=== PATIENT | male | born 1940 | race Caucasian/White ===

== ENCOUNTER 2018-07-29 04:47 | Emergency (ER) | payer MEDICARE, OTHER ==
[~2018-07-29] VITALS: Ht 175.3 cm; Wt 77.1 kg
[2018-07-29] MEDS ORDERED: cloNIDine HCL 0.1 MG TAB PO ONE (05:15)
[2018-07-29 06:39] LABS: Basophils # (auto) 0 uL; Basophils % (auto) 0.5 % (0.0-2.0); Eosinophils # (auto) 0.3 uL; Eosinophils % (auto) 3.8 % (0.0-7.0); Hematocrit 38.9 % (41.0-53.0); Lymphocytes # (auto) 1.2 uL; Lymphocytes % (auto) 16.4 % (10.0-50.0); Mean Corpuscular Hemoglobin 31.7 pg (28.0-32.0); Mean Corpuscular Hgb Conc. 33.5 g/dL (32.0-36.0); Mean Corpuscular Volume 94.7 fL (80.0-100.0); Monocytes # (auto) 0.9 uL; Monocytes % (auto) 12.6 % (0.0-12.0); Neutrophils # (auto) 4.9 uL; Neutrophils % (auto) 66.7 % (37.0-80.0); Nucleated Red Blood Cells % 0.1 %; Platelet Count (auto) 227 10^3/uL (140-450); Red Blood Cells 4.11 10^6/uL (4.5-5.90); Red Cell Distribution Width 14.7 % (11.8-14.3); White Blood Cell 7.3 10^3/uL (4.4-10.8)
[2018-07-29] MEDS ORDERED: SODIUM CHLORIDE 0.9% 1,000 ML IV ONE (06:51)
[2018-07-29 06:53] LABS: Albumin 3.4 g/dL (3.4-5.0); Calcium 7.9 mg/dL (8.5-10.1); Magnesium 2.3 mg/dL (1.6-2.6); Potassium 4.2 mmol/L (3.5-5.1)
[2018-07-29 06:57] LABS: Bilirubin, Total 0.5 mg/dL (0.2-1.0); Total Protein 7.5 g/dL (6.4-8.2)
[2018-07-29 09:00] VITALS: BP 111/73
== END 2018-07-29 09:31 | disposition home or self-care (01) ==
LOC: ER 04:52
DX: S00.03XA Contusion of scalp, initial encounter (principal); I12.9 Hypertensive chronic kidney disease with stage 1 through stage 4 chronic kidney disease, or unspecified chronic kidney disease; N18.9 Chronic kidney disease, unspecified; E46 Unspecified protein-calorie malnutrition; Z86.73 Personal history of transient ischemic attack (TIA), and cerebral infarction without residual deficits; W19.XXXA Unspecified fall, initial encounter; Y93.89 Activity, other specified; Y99.8 Other external cause status; Y92.89 Other specified places as the place of occurrence of the external cause
CPT/HCPCS: 36415; 70450; 80053; 83735; 84443; 84484; 85025; 93005; 94761

== ENCOUNTER 2019-04-14 08:16 | Inpatient (IN) | payer MEDICARE, OTHER ==
[~2019-04-14] VITALS: Ht 170.2 cm; Wt 71.5 kg
[~2019-04-14 08:16] MED LIST: ACET-3 PO; APIX2.5T PO; BISM1CHW5 PO; CLON0.2T PO; DIA5T PO; DOCU-94 PO; DOXY100C2 PO; FERR-20 PO; FURO20TA3 PO; METO25TA62 PO; METR500T14 PO; NIFE60TA59 PO; NITR1SPR TL; PANT40TA2 PO; RIZA5TAB14 PO; SODITAB PO; TAM04C PO
[2019-04-14 09:17] LABS: Basophils # (auto) 0.1 uL; Basophils % (auto) 1.3 % (0.0-2.0); Eosinophils # (auto) 0.2 uL; Eosinophils % (auto) 2.7 % (0.0-7.0); Hematocrit 31.2 % (41.0-53.0); Hemoglobin 9.9 g/dL (13.5-17.5); Lymphocytes # (auto) 0.7 uL; Lymphocytes % (auto) 9.7 % (10.0-50.0); Mean Corpuscular Hemoglobin 29.2 pg (28.0-32.0); Mean Corpuscular Hgb Conc. 31.9 g/dL (32.0-36.0); Mean Corpuscular Volume 91.7 fL (80.0-100.0); Monocytes % (auto) 12.9 % (0.0-12.0); Neutrophils # (auto) 5.4 uL; Neutrophils % (auto) 73.4 % (37.0-80.0); Platelet Count (auto) 303 10^3/uL (140-450); White Blood Cell 7.4 10^3/uL (4.4-10.8)
[2019-04-14] MEDS ORDERED: FUROSEMIDE 20 MG/2 ML VIAL IV ONE (09:30)
[2019-04-14] MEDS ORDERED: MECLIZINE HCL 25 MG TAB PO ONE (09:30)
[2019-04-14 09:42] LABS: Albumin 2.5 g/dL (3.4-5.0); Anion Gap 9 (5-15); Blood Urea Nitrogen 38 mg/dL (7-18); Carbon Dioxide 22 mmol/L (21-32); Chloride 110 mmol/L (98-107); Glucose 101 mg/dL (74-106); Magnesium 2.4 mg/dL (1.6-2.6); Potassium 4.3 mmol/L (3.5-5.1); Sodium 141 mmol/L (136-145)
[2019-04-14 09:43] LABS: INR 1.1 (0.9-1.15); Partial Thromboplastin Time 32.5 sec (23.64-32.05)
[2019-04-14 09:49] LABS: Alanine Aminotransferase 9 U/L (16-61); Alkaline Phosphatase 114 U/L (45-117); Aspartate Aminotransferase 11 U/L (15-37); BUN/Creatinine Ratio 15.1; Bilirubin, Total 0.3 mg/dL (0.2-1.0); GFR African American 32 mL/min; GFR Non-African American 26 mL/min
[2019-04-14] MEDS ORDERED: ONDANSETRON HCL 4 MG/2 ML VIAL ONE (10:02)
[2019-04-14] MEDS ORDERED: ONDANSETRON HCL 4 MG/2 ML VIAL IV ONE (10:15)
[2019-04-14] MEDS ORDERED: RIZATRIPTAN BENZOATE 5 MG PO PRN (12:15)
[2019-04-14] MEDS ORDERED: NITROGLYCERIN 0.4 MG SL TAB SL PRN ×2 (12:30)
--- NOTE | 2019-04-14 13:19 | NUR ---
Telemetry admit from ER CHANTELLE,ELZA admitted to Telemetry unit after SBAR received. Patient oriented to Tasia Santos, primary RN, unit, room, bed, and unit policies regarding patient care and visiting hours. Patient now on continuous telemetry monitoring, tele box # 10 and telemetry reading on arrival to unit is . Patient placed on bedside oxygen, weighed by bed scale and encouraged to call if they need something. All questions and concerns addressed, patient verbalized understanding. Note: FALL RISK PRECAUTIONS INITIATED
[2019-04-14 13:20] VITALS: BP 127/69
--- NOTE | 2019-04-14 13:20 | NUR ---
ASSESSMENT NOTE PATIENT IS ALERT ORIENTED TO SELF, PLACE, SITUATION, FORGET FULL ON TIMES, ARRIVED BY A WHEELCHAIR, OXYGEN 2 L NC, LEG BAG MONTANA CATHETER , NO SHORTNESS SOF BREATH NOTED, DENIES ANY CHEST PAIN, PT WAS ABLE TO GET OUT OF THE WHEELCHAIR AND GET INSIDE THE BED NO DISTRESS NOTED.
--- NOTE | 2019-04-14 13:25 | NUR ---
CONTINUE PATIENT'S ASSESSMENT PT HAS A LARGE INGUINAL HERNIA, A MONTANA CATHETER WAS INSERTED ON MARCH 26, 2019 PER HIS . PATIENT INFORM ME THAT HER HAS ABDOMINAL ANEURYSM SURGERY AND HE COULDN'T URINATE LATER AFTER, AND THEY INSERT A MONTANA CATHETER AND HE SUPPOSE TO FOLLOW UP WITH A UROLOGIST.
[2019-04-14 13:30] VITALS: BP 127/69
--- NOTE | 2019-04-14 13:45 | NUR ---
LEG BAG MONTANA CATHETER CONVERTED TO A GRAVITY BAG, PATENT'S AWARE AT BED SIDE
[2019-04-14] MEDS: SODIUM CHLOR 0.9% PF (SALINE LOCK) 10ML VIAL/SYR IV SCH ×2 (14:00→21:24)
[2019-04-14] MEDS: [UNRECOGNIZED DRUG - OTHER] PO SCH ×2 (14:00→21:25)
[2019-04-14] MEDS: cloNIDine HCL 0.1 MG TAB PO SCH ×2 (14:00→20:54)
--- NOTE | 2019-04-14 14:00 | NUR ---
NO DIET ORDER NOTED, SPOKE WITH Jason GREY NEW ORDERS OBTAIN
--- NOTE | 2019-04-14 14:01 | NUR ---
ALSO DR GREY MADE AWARE THAT HOME MEDICATION THAT BEEN RESUMED INPATIENT NEED TO BE VERIFIED AGAIN HOME ANTIBIOTICS
--- NOTE | 2019-04-14 14:30 | NUR ---
LUNCH PATIENT IS SITTING UP EATING LUNCH, NO DISTRESS NOTED, PT'S LEFT HOME.
[2019-04-14 14:48] LABS: Urine Bacteria NONE SEEN /hpf (None Seen); Urine Blood Negative /uL (Negative); Urine WBC 4 /hpf (0 - 3)
[2019-04-14] MEDS: TAMSULOSIN HYDROCHLORIDE 0.4 MG CAP PO SCH (17:23)
[2019-04-14] MEDS: FERROUS SULFATE 325 MG TAB PO SCH (17:23)
[2019-04-14] MEDS: BISMUTH SUBSALICYLATE PO SCH ×2 (17:23→23:51)
[2019-04-14] MEDS: METRONIDAZOLE 250 MG PO SCH ×2 (17:23→23:50)
--- NOTE | 2019-04-14 18:15 | NUR ---
PATIENT CONTINUE STABLE, OCCASIONALLY FORGETFUL, BUT AWARE OF THE SITUATION, ABLE TO VERBALIS HIS DEMANDS, SELF REPOSITION, NO SHORTAGE OF BREATH NOTED, CALL LIGHT WITHIN REACH.
--- NOTE | 2019-04-14 19:46 | NUR ---
Opening Shift Note Assumed care of patient, awake and alert. No S/S of distress/SOB or pain. Instructed on POC and to call for assist PRN, will continue to monitor for changes Q1hr and PRN. Family at bedside. Bed in low position, call whitehead with in reach.
--- NOTE | 2019-04-14 19:50 | NUR ---
Paer family patient is done with antibiotics from previous admission, not sure what is the name of the medication. Asked family to bring medications from home in am.
[2019-04-14] MEDS: DOCUSATE SOD 100 MG CAP PO SCH (20:53)
[2019-04-14] MEDS: PANTOPRAZOLE 40 MG TAB PO SCH (20:53)
[2019-04-14] MEDS ORDERED: Doxycycline Hyclate 100 MG TAB PO SCH (22:00)
[2019-04-14 22:32] VITALS: BP 177/96
--- NOTE | 2019-04-14 23:42 | NUR ---
Dr. Martel at bedside, notified of blood pressure recheck of 179/89, hr 79 after Clonidine 0.1mg given. Previous b/p 177/96, hr 69.
[2019-04-15] MEDS ORDERED: cloNIDine HCL 0.1 MG TAB PO PRN (00:15)
[2019-04-15] MEDS ORDERED: MORPHINE SULF INJ 2 MG/ML SYRINGE 1ML IV PRN (00:15)
[2019-04-15] MEDS: MORPHINE SULF INJ 2 MG/ML SYRINGE 1ML IV PRN ×2 (00:30→22:49)
--- NOTE | 2019-04-15 01:03 | NUR ---
B/P recheck 149/71, HR 53
[2019-04-15 05:00] VITALS: BP 119/60
[2019-04-15] MEDS: [UNRECOGNIZED DRUG - OTHER] PO SCH ×3 (06:00→22:00)
[2019-04-15] MEDS: cloNIDine HCL 0.1 MG TAB PO SCH ×3 (06:27→21:13)
[2019-04-15] MEDS: SODIUM CHLOR 0.9% PF (SALINE LOCK) 10ML VIAL/SYR IV SCH ×3 (06:27→21:15)
--- NOTE | 2019-04-15 07:25 | NUR ---
Opening Shift Note Assumed care of patient, awake and alert. No S/S of distress/SOB or pain. Instructed on POC-continue medications as ordered, diuresis, monitor I and O. Patient informed to call for assist PRN, will continue to monitor for changes Q1hr and PRN.
[2019-04-15] MEDS: FERROUS SULFATE 325 MG TAB PO SCH ×3 (07:54→17:41)
[2019-04-15] MEDS: PANTOPRAZOLE 40 MG TAB PO SCH ×2 (09:49→21:09)
[2019-04-15] MEDS: APIXABAN 2.5 MG TAB PO SCH (09:49)
[2019-04-15] MEDS: NIFEdipine ER 30 MG TAB PO SCH (09:50)
[2019-04-15] MEDS: DOCUSATE SOD 100 MG CAP PO SCH ×2 (09:50→21:09)
[2019-04-15] MEDS: FUROSEMIDE 20 MG TAB PO SCH (09:51)
[2019-04-15] MEDS: FUROSEMIDE 20 MG/2 ML VIAL IV SCH (09:51)
[2019-04-15] MEDS: DIAZEPAM 5 MG TAB PO SCH (09:52)
[2019-04-15] MEDS: METOPROLOL SUCCINATE XL 50 MG TAB PO SCH (09:52)
[2019-04-15 09:59] VITALS: BP 152/89
[2019-04-15] MEDS: ACETAMINOPHEN 500 MG TAB PO PRN (11:10)
[2019-04-15 13:24] VITALS: BP 174/97
--- NOTE | 2019-04-15 15:30 | NUR ---
Dr. Martel updated of patient's status, BP is erratic. MD ordered to increase Clonidine to 0.2 mg TID instead of 0.1 mg. Also got and order for Lactulose. Will carry out order and continue to monitor patient.
[2019-04-15] MEDS ORDERED: LACTULOSE 20Gm/30ML SOLN PO PRN (15:45)
[2019-04-15 16:53] VITALS: BP 134/68
[2019-04-15] MEDS: TAMSULOSIN HYDROCHLORIDE 0.4 MG CAP PO SCH (17:41)
[2019-04-15 22:11] VITALS: BP 147/77
[2019-04-16 04:43] VITALS: BP 178/95
[2019-04-16] MEDS: cloNIDine HCL 0.1 MG TAB PO SCH ×3 (05:16→21:21)
[2019-04-16] MEDS: [UNRECOGNIZED DRUG - OTHER] PO SCH ×3 (05:17→22:00)
[2019-04-16] MEDS: SODIUM CHLOR 0.9% PF (SALINE LOCK) 10ML VIAL/SYR IV SCH ×3 (05:17→21:39)
[2019-04-16 06:49] LABS: Alanine Aminotransferase 8 U/L (16-61); Albumin 2.1 g/dL (3.4-5.0); Anion Gap 11 (5-15); Aspartate Aminotransferase 11 U/L (15-37); BUN/Creatinine Ratio 15.7; Blood Urea Nitrogen 38 mg/dL (7-18); Calcium 7.4 mg/dL (8.5-10.1); Carbon Dioxide 20 mmol/L (21-32); Chloride 112 mmol/L (98-107); GFR African American 34 mL/min; GFR Non-African American 28 mL/min; Glucose 100 mg/dL (74-106); Potassium 4.6 mmol/L (3.5-5.1); Sodium 143 mmol/L (136-145)
[2019-04-16] MEDS: ACETAMINOPHEN 500 MG TAB PO PRN ×2 (06:50→21:39)
[2019-04-16 06:52] LABS: Alkaline Phosphatase 90 U/L (45-117); Bilirubin, Total 0.2 mg/dL (0.2-1.0)
--- NOTE | 2019-04-16 07:01 | NUR ---
End of Shift note: Patient continues to have dyspnea on exertion, on 02 via n/c at 3L. Had bowel movement today.
[2019-04-16 07:03] LABS: Basophils # (auto) 0.1 uL; Eosinophils # (auto) 0.2 uL; Hemoglobin 8.4 g/dL (13.5-17.5); Lymphocytes # (auto) 0.5 uL; Red Blood Cells 2.85 10^6/uL (4.5-5.90)
[2019-04-16 07:08] LABS: Basophils % (auto) 1.1 % (0.0-2.0); Eosinophils % (auto) 3.5 % (0.0-7.0); Hematocrit 25.9 % (41.0-53.0); Lymphocytes % (auto) 7.5 % (10.0-50.0); Mean Corpuscular Hemoglobin 29.3 pg (28.0-32.0); Mean Corpuscular Hgb Conc. 32.3 g/dL (32.0-36.0); Mean Corpuscular Volume 90.9 fL (80.0-100.0); Monocytes # (auto) 0.9 uL; Monocytes % (auto) 13.2 % (0.0-12.0); Neutrophils # (auto) 5.2 uL; Neutrophils % (auto) 74.7 % (37.0-80.0); Platelet Count (auto) 251 10^3/uL (140-450); Red Cell Distribution Width 17.7 % (11.8-14.3)
--- NOTE | 2019-04-16 07:45 | NUR ---
Patient sitting in bed, awake, oriented x4. No acute distress noted.
[2019-04-16] MEDS: FERROUS SULFATE 325 MG TAB PO SCH ×3 (08:43→17:24)
[2019-04-16 09:00] VITALS: BP 156/73
[2019-04-16] MEDS: DIAZEPAM 5 MG TAB PO SCH (10:00)
[2019-04-16] MEDS: DOCUSATE SOD 100 MG CAP PO SCH ×3 (10:00→21:20)
[2019-04-16] MEDS: FUROSEMIDE 20 MG/2 ML VIAL IV SCH (11:19)
[2019-04-16] MEDS: APIXABAN 2.5 MG TAB PO SCH (11:20)
[2019-04-16] MEDS: NIFEdipine ER 30 MG TAB PO SCH (11:20)
[2019-04-16] MEDS: METOPROLOL SUCCINATE XL 50 MG TAB PO SCH (11:20)
[2019-04-16] MEDS: PANTOPRAZOLE 40 MG TAB PO SCH ×2 (11:20→21:20)
--- NOTE | 2019-04-16 11:20 | NUR ---
Patient refused Colace, stated he had a big bowel movement last night. at bedside.
[2019-04-16 13:04] VITALS: BP 160/83
--- NOTE | 2019-04-16 14:20 | NUR ---
Patient stated he is dizzy. said patient gets confused, tend to fall asleep, if patient can have CT Scan of the head. Explained to patient and I will inform Dr. Martel.
--- NOTE | 2019-04-16 14:30 | NUR ---
Called Dr. Martel office. Spoke with Bree. Iqbal to inform Dr. Martel patient complained of dizziness, patient's stated she's concern that patient has periods of confusion, tend to fall asleep, if patient can have CT Scan of the head as requested by the .
--- NOTE | 2019-04-16 16:28 | NUR ---
Called Dr. Martel. made aware patient complained of dizziness. Dr. Martel ordered CT Scan of the head.
[2019-04-16 16:40] VITALS: BP 150/80
[2019-04-16] MEDS: TAMSULOSIN HYDROCHLORIDE 0.4 MG CAP PO SCH (17:24)
--- NOTE | 2019-04-16 17:25 | NUR ---
Patient's said she has not brought the patient's heartburn medication. Ptaient on Protonix PO twice daily, will receive the next dose at 10:00 pm.
--- NOTE | 2019-04-17 02:56 | NUR ---
Patient is awake , denies any discomfort at this time. Patient is confused . Patient re-oriented to place ant time. Patient verbalized understanding.
[2019-04-17 04:25] VITALS: BP 159/80
[2019-04-17] MEDS: [UNRECOGNIZED DRUG - OTHER] PO SCH ×3 (06:00→21:47)
[2019-04-17] MEDS: SODIUM CHLOR 0.9% PF (SALINE LOCK) 10ML VIAL/SYR IV SCH ×3 (06:40→21:47)
[2019-04-17] MEDS: cloNIDine HCL 0.1 MG TAB PO SCH ×3 (06:40→21:46)
--- NOTE | 2019-04-17 07:25 | NUR ---
Patient is sleepy.
[2019-04-17] MEDS: ACETAMINOPHEN 500 MG TAB PO PRN ×2 (07:36→16:19)
[2019-04-17] MEDS: FERROUS SULFATE 325 MG TAB PO SCH ×3 (07:36→18:21)
--- NOTE | 2019-04-17 07:36 | NUR ---
Patient stated he has headache. Tylenol PO given for pain as ordered.
[2019-04-17 08:00] VITALS: BP 155/80
--- NOTE | 2019-04-17 08:10 | NUR ---
Patient is sleepy. No acute distress noted.
--- NOTE | 2019-04-17 08:30 | NUR ---
New IV line started on the left wrist, 20 gauge, in one attempt, intact and patent. IV line on the left AC, leaking noted, IV line removed, IV catheter intact, pressure dressing applied.
--- NOTE | 2019-04-17 09:45 | NUR ---
Patient has confusion noted.
[2019-04-17] MEDS: DIAZEPAM 5 MG TAB PO SCH (09:59)
[2019-04-17] MEDS: FUROSEMIDE 20 MG TAB PO SCH (10:00)
[2019-04-17] MEDS: FUROSEMIDE 20 MG/2 ML VIAL IV SCH (10:03)
[2019-04-17] MEDS: NIFEdipine ER 30 MG TAB PO SCH (10:04)
[2019-04-17] MEDS: METOPROLOL SUCCINATE XL 50 MG TAB PO SCH (10:05)
[2019-04-17] MEDS: APIXABAN 2.5 MG TAB PO SCH (10:05)
[2019-04-17] MEDS: PANTOPRAZOLE 40 MG TAB PO SCH ×2 (10:06→21:47)
[2019-04-17] MEDS: DOCUSATE SOD 100 MG CAP PO SCH ×2 (10:06→21:46)
--- NOTE | 2019-04-17 12:17 | NUR ---
Patient asleep at this time. requested to let the patient sleep. Ferrous Sulfate on hold at this time.
--- NOTE | 2019-04-17 12:37 | NUR ---
Dr. Martel called back. has read the results of the CT Head done yesterday. Informed Dr. Martel that patient is confused, wants to talk to him. said he will come over in half an hour to see the patient.
[2019-04-17 14:00] VITALS: BP 149/72
--- NOTE | 2019-04-17 14:14 | NUR ---
NUTRITION ASSESSMENT NOTES Please refer to link notes of nutrition screen form filed under the intervention section of the plan of care for further details. Est. Needs: 1850 kcal to 2250 kcal (25-30 kcal/kgBW), 60 gms to 75 gms pro (0.8-1.0 gms/kgBW). Will continue to monitor pertinent labs and reassess nutrient need prn Thank you. Addendum: 04/17/19 at [address] Amended: Links added.
--- NOTE | 2019-04-17 15:01 | NUR ---
Delonte Galarza at bedside speaking with the patient and , patient's daughter via speaker phone.
--- NOTE | 2019-04-17 15:10 | NUR ---
Dr. Martel ordered to check the BP. BP = 160/92, Heart Rate = 66, O2 Sat = 95% on O2 at 1.5 LPM. is concern about the patient's confusion.
--- NOTE | 2019-04-17 15:20 | NUR ---
Results of 2D Echo explained by Dr. Martel to patient, and daughter (via speaker phone).
--- NOTE | 2019-04-17 15:51 | NUR ---
Dr. Martel put in new orders. Patient for discharge tonight as per Dr. Martel.
[2019-04-17] MEDS ORDERED: FUROSEMIDE 20 MG/2 ML VIAL IV ONE (16:00)
--- NOTE | 2019-04-17 16:19 | NUR ---
Patient stated he has headache. Tylenol PO given for pain as ordered.
[2019-04-17 17:00] VITALS: BP 160/79
--- NOTE | 2019-04-17 18:05 | NUR ---
Patient sitting on the edge of the bed, unable to get up from bed and walk without assist, complained of headache. Informed patient he got Tylenol for headache earlier. Patient back to bed. Bed alarm on.
--- NOTE | 2019-04-17 18:11 | NUR ---
Called Dr. Martel. Phone on voicemail. Left a message to call back.
[2019-04-17] MEDS: TAMSULOSIN HYDROCHLORIDE 0.4 MG CAP PO SCH (18:21)
--- NOTE | 2019-04-17 18:24 | NUR ---
Ice bag applied on the head intermittently, patient stated it helps relieve the headache.
--- NOTE | 2019-04-17 18:45 | NUR ---
Patient is nauseous and vomited milk. at bedside. Paged Hospitalist cleaning matron.
[2019-04-17] MEDS: ONDANSETRON HCL 4 MG/2 ML VIAL IV PRN (19:01)
--- NOTE | 2019-04-17 19:01 | NUR ---
Zofran IVP given for nausea/vomiting as ordered.
--- NOTE | 2019-04-17 19:30 | NUR ---
Opening Shift Note Assumed care of patient, awake and alert. No S/S of distress/SOB or pain. Insructed on POC and to callfor assist PRN, will continue to monitor for changes Q1hr and PRN. Fall and safety precautions in place. Call light within reach.
--- NOTE | 2019-04-17 20:30 | NUR ---
FAMILY at bedside at this time. Confirmed with her patient's medical history, including being admitted at [facility], having an abdominal aneurysm surgical repair, and being discharged home with webber catheter. expressed concerns regarding patient receiving physical therapy and being discharged on home oxygen. PT keely will be input per protocol and will inform MD regarding home oxygen. also states that when patient complains of back or head pain, "it's all in his head." stated ok to give patient heat or ice packs for discomfort throughout night, but to limit use of PRN pain medication. Will continue to monitor
--- NOTE | 2019-04-17 21:46 | NUR ---
MD MARTEL Received call from MD Martel, updated him on patient status and 's concerns. New orders received. Will input and carry out
[2019-04-17 22:00] VITALS: BP 146/72
--- NOTE | 2019-04-17 23:13 | NUR ---
CONFUSION Entered room to reassess patient's blood pressure and found patient sitting on edge of bed with tele monitor off and nasal canula and gown off. Patient stated "I need to get some of this stuff off." Educated patient that tele monitor, IV access, and webber catheter must stay in place for patient safety. Patient A&Ox self, time, and situation. Patient placed back in bed, gown, tele monitor, and nasal canula placed on patient. Educated patient that he needs to stay in bed with everything in place. Patient stated "I gotta get ready cause I'm going home." Explained to patient that he will possibly be discharged in morning and his is aware. Patient verbalized understanding and agreement. Bed alarm turn on, side rails up x3, and bed in lowest and locked position. TV turned on for distraction. Bedside table and call light placed within reach. Will continue to monitor
[2019-04-18] VITALS (7 sets, daily range): BP systolic 131–163; BP diastolic 67–84
--- NOTE | 2019-04-18 00:15 | NUR ---
CONFUSION Entered room to check on patient, patient was found sitting on edge of bed again, stating "I need to put my pajamas on." Patient was educated that he is wearing a hospital gown and needs to get back in bed. Patient placed back in bed, nasal canula placed back on patient. Bed alarm on sensitive mode. Bed in lowest and locked position, bed rails up x3, bedside table and call light within reach. Will continue to monitor
--- NOTE | 2019-04-18 01:00 | NUR ---
CONFUSION Patient's bed alarm went off. Entered room to see if patient is ok and found patient attempting to get out of bed. Patient states "I need to get this catheter out and go home." Patient placed back in bed, nasal canula placed back on patient, webber catheter and IV access assessed, both are in place. Bed alarm on sensitive mode turned on, bed in lowest and locked position, bedside table and call light within reach. Will continue to monitor
--- NOTE | 2019-04-18 04:00 | NUR ---
CONFUSION/AGGRESSION Entered room to check on patient, found patient attempting to get out of bed, gown pulled off, tele monitor pulled off, and nasal canula pulled off. Educated patient that he's in the hospital, needs to stay in bed for safety, and needs to leave nasal canula, tele monitor, and gown on. Patient agreed to get back in bed, gown placed back on patient, nasal canula placed back on patient, tele monitor placed back on patient. Attempted to place mittens on patient to prevent from pulling lines, patient refusing, becoming agitated, stating "call my now." Educated patient that it is 0400 and is probably asleep. Patient refusing to verbalize understanding, demanding that his be called. Patient becoming more agitated and aggressive towards staff, stating "fuck you, I need to go home, call my , I'm calling the police," and making threats, witnessed by YOLIS Denis and three other RN's, Mary Carmen, Wilma, and Charity. Patient stated that if his was called, he would agree to have mittens on bilaterally. was called from room phone, no answer. Patient left message. After hanging up the room phone, patient agreed to have mittens placed. Mittens placed on bilateral hands for patient safety. Side rails up x3, bed in lowest and locked position. Will continue to monitor
--- NOTE | 2019-04-18 04:42 | NUR ---
ABG ORDER Spoke with RT Leonides regarding ABG order for this morning at 0400. Leonides stated that morning ABGs are normally done at 0800 if order states "routine." ABG order states "routine." Will inform day shift RN. Will continue to monitor
[2019-04-18] MEDS: SODIUM CHLOR 0.9% PF (SALINE LOCK) 10ML VIAL/SYR IV SCH ×3 (05:52→22:09)
[2019-04-18] MEDS: cloNIDine HCL 0.1 MG TAB PO SCH ×3 (05:52→22:10)
[2019-04-18] MEDS: [UNRECOGNIZED DRUG - OTHER] PO SCH ×3 (05:52→22:00)
--- NOTE | 2019-04-18 06:00 | NUR ---
CONFUSION Entered room because bed alarm was going off, found patient sitting on edge of bed with feet on floor, stating "I've gotta go home." Educated patient that he will possibly be discharged later today and is aware, she will come pick him up when discharge orders are in place. Patient agitated, calling primary RN a liar. Patient placed back in bed, mittens in place bilaterally, bed rails up x3, bed in lowest and locked position, bed alarm on. Will continue to monitor
--- NOTE | 2019-04-18 07:30 | NUR ---
Received patient with mittens on both hands.
--- NOTE | 2019-04-18 07:40 | NUR ---
Removed the mittens on both hands, left hand with bruising noted.
--- NOTE | 2019-04-18 07:40 | NUR ---
Patient is confused, sitting on the edge of the bed. Asked the patient to get back to bed, he's weak to get up from bed and walk without assist. Patient back to bed.
[2019-04-18] MEDS: FERROUS SULFATE 325 MG TAB PO SCH ×3 (07:53→18:41)
--- NOTE | 2019-04-18 09:12 | NUR ---
Patient qualifies for home O2 as per Respiratory Therapist (RT).
--- NOTE | 2019-04-18 09:18 | NUR ---
Paged Grizzly Worker telephone information clerk.
--- NOTE | 2019-04-18 09:23 | NUR ---
Security Door Installer Lola regarding home O2, patient qualifies. Lola said send copy of Face Sheet, Order for home O2, ABG result and H&P to [facility] (P# [phone]) . Addendum: 04/18/19 at 0924 by Jessica Blank RN called back
--- NOTE | 2019-04-18 09:45 | NUR ---
Alexa called she will come over to see the patient.
[2019-04-18] MEDS: PANTOPRAZOLE 40 MG TAB PO SCH ×2 (09:58→22:11)
[2019-04-18] MEDS: FUROSEMIDE 20 MG/2 ML VIAL IV SCH (09:58)
[2019-04-18] MEDS: NIFEdipine ER 30 MG TAB PO SCH (09:58)
[2019-04-18] MEDS: DIAZEPAM 5 MG TAB PO SCH (09:59)
[2019-04-18] MEDS: METOPROLOL SUCCINATE XL 50 MG TAB PO SCH (09:59)
[2019-04-18] MEDS: DOCUSATE SOD 100 MG CAP PO SCH ×2 (09:59→22:11)
[2019-04-18] MEDS: APIXABAN 2.5 MG TAB PO SCH (09:59)
--- NOTE | 2019-04-18 10:45 | NUR ---
Dr. Martel called that patient needs home oxygen, he put in discharge orders. made aware I will send papers via fax to [facility] for patient's home O2, when delivered patient will be discharged as he ordered. made aware patient is confused, trying to get up bed, but unable to walk without assist. Dr. Martel said he will come over in an hour to see the patient.
--- NOTE | 2019-04-18 11:10 | NUR ---
Copy of face sheet, order for home O2, H&P, progress notes, ABGs result sent via fax to [facility] ( ).
--- NOTE | 2019-04-18 11:32 | NUR ---
Called Tiana (P# [phone]). Spoke with Travis. Tiana received the papers via fax. [facility] personnel to call me back for the home O2 to be delivered at bedside.
--- NOTE | 2019-04-18 12:17 | NUR ---
Received a call back from Yoko siegel [facility], asked for patient's contact #, they will deliver the portable O2 at bedside today.
--- NOTE | 2019-04-18 12:34 | NUR ---
O/c note: Jessica called and stated pt needed home 02. Instructed Jessica to fax to [facility] since pt is medicare.. I gave Jessica ph and fax #
--- NOTE | 2019-04-18 13:15 | NUR ---
Patient asleep. at bedside.
--- NOTE | 2019-04-18 14:00 | NUR ---
Dr. Martel at bedside. Patient asleep. speaking with the .
[2019-04-18] MEDS ORDERED: MORPHINE SULF INJ 2 MG/ML SYRINGE 1ML IV PRN ×2 (14:15→14:45)
--- NOTE | 2019-04-18 14:16 | NUR ---
Patent being assisted to sit on a chair. speaking with the patient and . Patient refused lunch at this time. Addendum: 04/18/19 at 1519 by Jessica Blank RN Patient
--- NOTE | 2019-04-18 14:56 | NUR ---
Dr. Martel ordered to hold the discharge order today, hold Eliquis, he will put in new orders.
--- NOTE | 2019-04-18 17:00 | NUR ---
Patient's said the patient's portable oxygen was delivered at home.
[2019-04-18 17:07] LABS: Basophils # (auto) 0 uL; Basophils % (auto) 0.6 % (0.0-2.0); Eosinophils # (auto) 0.1 uL; Eosinophils % (auto) 0.8 % (0.0-7.0); Lymphocytes # (auto) 0.5 uL; Lymphocytes % (auto) 6.2 % (10.0-50.0); Mean Corpuscular Hemoglobin 29.4 pg (28.0-32.0); Mean Corpuscular Hgb Conc. 32.1 g/dL (32.0-36.0); Mean Corpuscular Volume 91.6 fL (80.0-100.0); Monocytes # (auto) 1.1 uL; Monocytes % (auto) 13.9 % (0.0-12.0); Neutrophils # (auto) 6.2 uL; Neutrophils % (auto) 78.5 % (37.0-80.0); Platelet Count (auto) 245 10^3/uL (140-450); Red Blood Cells 3.05 10^6/uL (4.5-5.90); Red Cell Distribution Width 17.7 % (11.8-14.3); White Blood Cell 7.9 10^3/uL (4.4-10.8)
--- NOTE | 2019-04-18 18:05 | NUR ---
Photos taken of the left hand (bruise) and right hand. Wound Care forms placed on the Wound Care tray. Camera returned to [facility].
[2019-04-18] MEDS: TAMSULOSIN HYDROCHLORIDE 0.4 MG CAP PO SCH (18:40)
--- NOTE | 2019-04-18 19:00 | NUR ---
Opening Shift Note Assumed care of patient, awake and alert. No S/S of distress/SOB or pain. Instructed on POC and to call for assist PRN, will continue to monitor for changes Q1hr and PRN.
[2019-04-19 05:00] VITALS: BP 151/82
[2019-04-19] MEDS: cloNIDine HCL 0.1 MG TAB PO SCH ×2 (05:40→13:35)
[2019-04-19] MEDS: [UNRECOGNIZED DRUG - OTHER] PO SCH ×2 (05:40→13:30)
[2019-04-19] MEDS: SODIUM CHLOR 0.9% PF (SALINE LOCK) 10ML VIAL/SYR IV SCH ×2 (05:40→13:36)
[2019-04-19] MEDS: ACETAMINOPHEN 500 MG TAB PO PRN ×2 (05:41→13:34)
[2019-04-19 07:41] LABS: INR 1.12 (0.9-1.15); Partial Thromboplastin Time 32.2 sec (23.64-32.05)
[2019-04-19 07:44] LABS: Basophils # (auto) 0.1 uL; Basophils % (auto) 1.1 % (0.0-2.0); Eosinophils # (auto) 0.1 uL; Eosinophils % (auto) 1.7 % (0.0-7.0); Hematocrit 28.2 % (41.0-53.0); Lymphocytes # (auto) 0.6 uL; Lymphocytes % (auto) 9.8 % (10.0-50.0); Mean Corpuscular Volume 90.8 fL (80.0-100.0); Monocytes # (auto) 0.8 uL; Monocytes % (auto) 13.4 % (0.0-12.0); Neutrophils # (auto) 4.3 uL; Platelet Count (auto) 246 10^3/uL (140-450); Red Cell Distribution Width 17.5 % (11.8-14.3); White Blood Cell 5.8 10^3/uL (4.4-10.8)
[2019-04-19 07:50] LABS: Potassium 4.6 mmol/L (3.5-5.1)
--- NOTE | 2019-04-19 07:50 | NUR ---
Patient sitting on bed. Patient made aware do not try to get up without assistance. Applied a new Alvarez catheter virgen on the left leg. Enlarged scrotal area noted. Bed alarm on.
[2019-04-19 07:52] LABS: BUN/Creatinine Ratio 16.1
--- NOTE | 2019-04-19 08:05 | NUR ---
Test Developer came over to forklift picker the patient. Tech made aware patient is confused, will be the one to sign the consents for any procedure if needed.
--- NOTE | 2019-04-19 08:35 | NUR ---
Patient's Alexa came over. Called Radiology. Spoke with Dagmar if patient's is okay to go there because patient has confusion, will be the one to sign the consents if needed. Dagmar said okay to let the patient's to go at Radiology.
--- NOTE | 2019-04-19 08:50 | NUR ---
Received a call from Rachelle of [facility] that patient's called them yesterday that patient is confused and aggressive. Explained to Rachelle that patient is confused, report of patient's aggression from two nights ago as per structural steel engineer RN, patient is not aggressive during the day. Rachelle confirmed that patient was discharged from [facility] on Alvarez catheter/urinary leg bag.
[2019-04-19 09:00] VITALS: BP 151/74
--- NOTE | 2019-04-19 09:02 | NUR ---
Patient back to room. at bedside
[2019-04-19] MEDS: FUROSEMIDE 20 MG/2 ML VIAL IV SCH (09:55)
[2019-04-19] MEDS: FERROUS SULFATE 325 MG TAB PO SCH ×3 (09:55→18:00)
[2019-04-19] MEDS: DOCUSATE SOD 100 MG CAP PO SCH (09:56)
[2019-04-19] MEDS: FUROSEMIDE 20 MG TAB PO SCH (09:56)
[2019-04-19] MEDS: NIFEdipine ER 30 MG TAB PO SCH (09:56)
[2019-04-19] MEDS: PANTOPRAZOLE 40 MG TAB PO SCH (09:57)
[2019-04-19] MEDS: METOPROLOL SUCCINATE XL 50 MG TAB PO SCH (09:57)
[2019-04-19] MEDS: DIAZEPAM 5 MG TAB PO SCH (09:57)
--- NOTE | 2019-04-19 10:11 | NUR ---
LEFT THORACENTESIS DONE AT THE .S. DEPT. PT TOLERATED PROCEDURE VERY WELL. 700MLS OF BLOODY DRAINAGE RETURNED AND SENT TO THE LAB. V/S 0840: BP 159/76 HR 56 RR 17 02 SAT 99%. 0850 V/S BP 163/76 HR 56 RR 15 02 SAT 100%. PT RETURNED TO ROOM VIA W/C. REPORT GIVING TO BESIDE NURSE JIMENA.
--- NOTE | 2019-04-19 12:00 | NUR ---
Patient stated hew has headache. Tylenol PO not due at this time. Family at bedside.
[2019-04-19] MEDS: ONDANSETRON HCL 4 MG/2 ML VIAL IV PRN ×2 (12:05→19:20)
--- NOTE | 2019-04-19 12:05 | NUR ---
Zofran IVP PRN given for nausea/vomiting as ordered. Family at bedside.
[2019-04-19 13:00] VITALS: BP 136/70
--- NOTE | 2019-04-19 13:37 | NUR ---
Tylenol PO given for headache as ordered. Daughter at bedside.
--- NOTE | 2019-04-19 15:10 | NUR ---
Received a call from Rachelle of [facility]. I was on lunch break at this time. She left a message to Unit Galen Mcmillan regarding the [facility] contact numbers: [facility] Transfer Center P# [phone]; Rachelle (P# [phone]) P# after 5 pm (P# [phone]), Dr. Mosher is the [facility] accepting MD/Surgeon.
[2019-04-19 15:36] LABS: Albumin 2.2 g/dL (3.4-5.0); Calcium 7.8 mg/dL (8.5-10.1); Potassium 4.4 mmol/L (3.5-5.1)
[2019-04-19 15:39] LABS: BUN/Creatinine Ratio 16.4; Bilirubin, Total 0.4 mg/dL (0.2-1.0); Total Protein 6.1 g/dL (6.4-8.2)
--- NOTE | 2019-04-19 15:54 | NUR ---
Nick from [facility] called that they need the patient's face sheet be sent via fax ([phone]) (P# [phone] Transfer Center) for the patient's transfer to [facility], they want to speak with the [facility] Pillowcase Turner.
--- NOTE | 2019-04-19 16:01 | NUR ---
Dr. Martel called back. made aware [facility] called three times today, they ant the patient be transferred to [facility]. Dr. Martel ordered to discharge patient to acute care facility ([facility]), he will come over to see the patient today.
--- NOTE | 2019-04-19 16:10 | NUR ---
Call transferred to Canvas Cutter Hand Lola Noble office. Spoke with Claudia. Jiménez to inform Lola that [facility] called, they want the patient be transferred there, they ant to speak with the [facility] Canvas Cutter Hand. Waiting for Lola to call back. Addendum: 04/19/19 at 1643 by Jessica Blank RN they want to speak with [facility] Canvas Cutter Hand
--- NOTE | 2019-04-19 16:20 | NUR ---
Face sheet sent via fax ([phone]) to [facility].
[2019-04-19 17:00] VITALS: BP 145/73
--- NOTE | 2019-04-19 17:00 | NUR ---
Family made aware that [facility] already called that they want the patient be transferred back to [facility], Dr. Mosher is the accepting MD/Surgeon. Waiting for bed availability at [facility], waiting for Cafeteria Clerk Lola to call back.
--- NOTE | 2019-04-19 17:07 | NUR ---
Paged Emergency Management Consultant Lola Noble again.
--- NOTE | 2019-04-19 17:10 | NUR ---
transfer: [facility] care form completed and faxed to [facility]. Pt will go to [facility] ph # [phone] and after 1700 hrs ph # is [phone] Mosher is accepting MD
--- NOTE | 2019-04-19 17:10 | NUR ---
Called [facility] Transfer Center ([phone]), phone on voicemail. Left a message to call back.
--- NOTE | 2019-04-19 17:12 | NUR ---
transfer packet faxed to [facility] and [facility] Hipolito reminded to copy chart and have any cds ready for transfer.
--- NOTE | 2019-04-19 17:15 | NUR ---
Gyroscopic Instrument Tester Lola called back. [facility] Care for transport set up, patient waiting for bed availability at [facility]. Refer to Marble Machine Tender notes.
--- NOTE | 2019-04-19 17:51 | NUR ---
Received a call back from Jennifer of [facility] that patient got a bed availability at [facility], [address], [place], [place] [address], to room 5202 Bed B, Dr. Mosher is the accepting MD, call for report to P# [phone]. Will call [facility] Transport Service.
[2019-04-19] MEDS: TAMSULOSIN HYDROCHLORIDE 0.4 MG CAP PO SCH (18:00)
--- NOTE | 2019-04-19 18:15 | NUR ---
Medi Jake Form (CMN) form sent to [facility] via fax ( and [phone]).
--- NOTE | 2019-04-19 18:20 | NUR ---
Med Care form resent via Fax to [facility].
--- NOTE | 2019-04-19 18:25 | NUR ---
Called [facility] ([phone]). Report given to Nurse Bridget that patient is confused, had a surgery done at [facility] on March 18, 2019, patient has a Alvarez catheter inserted at [facility], with IV line on the left wrist 22 gauge saline lock. Bridget said patient will go to [facility] Room 5225 near the Nurse Station.
--- NOTE | 2019-04-19 18:25 | NUR ---
Report given to Bridget that patient's left hand has bruising, and small bruising on the the right hand.
--- NOTE | 2019-04-19 18:40 | NUR ---
Called [facility] again. Spoke with Nurse Gill that ETA for [facility] to picking tech the patient from [facility] at 7:40 pm tongena.
--- NOTE | 2019-04-19 19:30 | NUR ---
Patient left facility: [facility] arrived to take patient to [facility]. Family also at patient bedside. Patient was comfortable and in no distress and no complaints of pain. Family wanted to leave immediately but verbalized thankfulness for care of the patient. Patient and family were satisfied with patient's stay. Dr. Martel made aware of patient's departure and the presence of family.
== END 2019-04-19 19:30 | disposition short-term general hospital (02) | DRG 291 ==
LOC: EDBD 08:16 → ER 08:19 → TELE-EAST 08:20
PROVIDERS: ADMIT Specialist; ATTEND Specialist
PROC: 0W9B3ZZ Drainage of Left Pleural Cavity, Percutaneous Approach (ICD-10-PCS; principal; 2019-04-19)
DX: I13.0 Hypertensive heart and chronic kidney disease with heart failure and stage 1 through stage 4 chronic kidney disease, or unspecified chronic kidney disease (principal); I50.43 Acute on chronic combined systolic (congestive) and diastolic (congestive) heart failure; G92 Toxic encephalopathy; J91.8 Pleural effusion in other conditions classified elsewhere; N17.9 Acute kidney failure, unspecified; Q23.1 Congenital insufficiency of aortic valve; E46 Unspecified protein-calorie malnutrition; J44.9 Chronic obstructive pulmonary disease, unspecified; N18.9 Chronic kidney disease, unspecified; I25.10 Atherosclerotic heart disease of native coronary artery without angina pectoris; I48.91 Unspecified atrial fibrillation; E78.00 Pure hypercholesterolemia, unspecified; G89.29 Other chronic pain; F43.10 Post-traumatic stress disorder, unspecified; I27.81 Cor pulmonale (chronic); R09.02 Hypoxemia; E86.9 Volume depletion, unspecified; R54 Age-related physical debility; I25.5 Ischemic cardiomyopathy; I34.0 Nonrheumatic mitral (valve) insufficiency; I27.20 Pulmonary hypertension, unspecified; K40.20 Bilateral inguinal hernia, without obstruction or gangrene, not specified as recurrent; E11.22 Type 2 diabetes mellitus with diabetic chronic kidney disease; Z86.79 Personal history of other diseases of the circulatory system; Z82.49 Family history of ischemic heart disease and other diseases of the circulatory system; Z91.012 Allergy to eggs; Z74.01 Bed confinement status; Z79.899 Other long term (current) drug therapy
CPT/HCPCS: 10022; 32555; 36415; 36600; 70450; 71045; 76604; 76942; 80048; 80053; 81001; 82805; 83735; 83880; 84484; 85025; 85610; 85730; 87081; 87086; 89051; 93005; 93306; 96374; 96375; G0378; J2405

== ENCOUNTER 2019-05-28 13:19 | Emergency (ER) | payer MEDICARE, OTHER ==
[~2019-05-28] VITALS: Ht 162.6 cm; Wt 59.4 kg
[2019-05-28] MEDS ORDERED: SODIUM CHLORIDE 0.9% 500 ML IV ONE (13:51)
[2019-05-28 14:22] LABS: Urine WBC None Seen /hpf (0 - 3)
[2019-05-28 14:32] LABS: Basophils # (auto) 0.1 uL; Basophils % (auto) 1.2 % (0.0-2.0); Eosinophils # (auto) 0.2 uL; Hematocrit 29.9 % (41.0-53.0); Hemoglobin 9.7 g/dL (13.5-17.5); Lymphocytes # (auto) 0.8 uL; Lymphocytes % (auto) 13.9 % (10.0-50.0); Mean Corpuscular Hemoglobin 28.3 pg (28.0-32.0); Mean Corpuscular Hgb Conc. 32.6 g/dL (32.0-36.0); Mean Corpuscular Volume 86.9 fL (80.0-100.0); Monocytes # (auto) 0.7 uL; Monocytes % (auto) 12.7 % (0.0-12.0); Neutrophils # (auto) 3.8 uL; Neutrophils % (auto) 69.2 % (37.0-80.0); Platelet Count (auto) 290 10^3/uL (140-450); Red Blood Cells 3.44 10^6/uL (4.5-5.90); Red Cell Distribution Width 17.4 % (11.8-14.3); White Blood Cell 5.5 10^3/uL (4.4-10.8)
[2019-05-28 14:52] LABS: Alanine Aminotransferase 14 U/L (16-61); Albumin 2.6 g/dL (3.4-5.0); Aspartate Aminotransferase 6 U/L (15-37); BUN/Creatinine Ratio 20.9; Blood Urea Nitrogen 53 mg/dL (7-18); Calcium 8.2 mg/dL (8.5-10.1); Chloride 110 mmol/L (98-107); GFR African American 32 mL/min; GFR Non-African American 26 mL/min; Glucose 123 mg/dL (74-106); INR 1.03 (0.9-1.15); Magnesium 2.4 mg/dL (1.6-2.6); Partial Thromboplastin Time 31.1 sec (23.64-32.05); Potassium 3.6 mmol/L (3.5-5.1); Sodium 143 mmol/L (136-145)
[2019-05-28 15:06] LABS: Alkaline Phosphatase 110 U/L (45-117); Anion Gap 12 (5-15); Bilirubin, Total 0.2 mg/dL (0.2-1.0); Carbon Dioxide 21 mmol/L (21-32); Total Protein 6.5 g/dL (6.4-8.2)
[2019-05-28 15:07] LABS: Urine Bacteria NONE SEEN /hpf (None Seen); Urine Blood Negative /uL (Negative); Urine Specific Gravity 1.014 (1.001-1.035)
[2019-05-28] MEDS ORDERED: NITROGLYCERIN 0.4 MG SL TAB SL PRN ×2 (16:15)
[2019-05-28] MEDS ORDERED: MORPHINE SULF INJ 2 MG/ML SYRINGE 1ML IV PRN ×2 (16:15)
[2019-05-28] MEDS ORDERED: SOD CHL 0.45% 1,000 ML IV ONE (16:15)
[2019-05-28] MEDS ORDERED: FERROUS SULFATE 325 MG TAB PO SCH (18:00)
[2019-05-28] MEDS ORDERED: BISMUTH SUBSALICYLATE PO SCH (18:00)
[2019-05-28] MEDS ORDERED: TAMSULOSIN HYDROCHLORIDE 0.4 MG CAP PO SCH (18:00)
[2019-05-28] MEDS ORDERED: METRONIDAZOLE 250 MG PO SCH (18:00)
[2019-05-28 21:44] VITALS: BP 155/56
[2019-05-28] MEDS ORDERED: ACETAMINOPHEN 500 MG TAB PO PRN (22:00)
[2019-05-28] MEDS ORDERED: APIXABAN 2.5 MG TAB PO SCH (22:00)
[2019-05-28] MEDS ORDERED: DOCUSATE SOD 100 MG CAP PO SCH (22:00)
[2019-05-28] MEDS ORDERED: [UNRECOGNIZED DRUG - OTHER] PO SCH (22:00)
[2019-05-28] MEDS ORDERED: PANTOPRAZOLE 40 MG TAB PO SCH (22:00)
[2019-05-28] MEDS ORDERED: SODIUM CHLOR 0.9% PF (SALINE LOCK) 10ML VIAL/SYR IV SCH (22:00)
[2019-05-28] MEDS ORDERED: cloNIDine HCL 0.1 MG TAB PO SCH (22:00)
[2019-05-29] MEDS ORDERED: RIZATRIPTAN BENZOATE 5 MG PO PRN (10:00)
[2019-05-29] MEDS ORDERED: NIFEdipine ER 30 MG TAB PO SCH (10:00)
[2019-05-29] MEDS ORDERED: DIAZEPAM 5 MG TAB PO SCH (10:00)
[2019-05-29] MEDS ORDERED: METOPROLOL SUCCINATE XL 50 MG TAB PO SCH (10:00)
[2019-05-29] MEDS ORDERED: FUROSEMIDE 20 MG TAB PO SCH (10:00)
== END 2019-05-28 22:09 | disposition short-term general hospital (02) ==
LOC: ER 13:19 → EDBD 13:19 → ER 22:09
DX: R55 Syncope and collapse (principal); I95.9 Hypotension, unspecified; R00.1 Bradycardia, unspecified; I13.0 Hypertensive heart and chronic kidney disease with heart failure and stage 1 through stage 4 chronic kidney disease, or unspecified chronic kidney disease; N18.9 Chronic kidney disease, unspecified; I50.9 Heart failure, unspecified; J44.9 Chronic obstructive pulmonary disease, unspecified; E78.5 Hyperlipidemia, unspecified; Z86.73 Personal history of transient ischemic attack (TIA), and cerebral infarction without residual deficits; Z79.899 Other long term (current) drug therapy; Z91.012 Allergy to eggs
CPT/HCPCS: 36415; 71045; 80053; 81001; 82962; 83735; 83880; 84484; 85025; 85610; 85730; 93005; 94761; 99285; J7040; 96360

== ENCOUNTER 2020-12-20 11:46 | Emergency (ER) | payer MEDICARE, OTHER ==
[~2020-12-20] VITALS: Ht 170.2 cm; Wt 68.0 kg
[~2020-12-20 11:46] MED LIST changes: -METO25TA62 PO; +METO25TA93 PO; +NIFE1TAB30 PO; -NIFE60TA59 PO; -RIZA5TAB14 PO; +RIZA5TAB35 PO
[2020-12-20] MEDS ORDERED: BACITRACIN TOP OINT 1 UD PKG TOP ONE (13:30)
[2020-12-20 13:31] VITALS: BP 176/86
[2021-02-19] MEDS ORDERED: ISOS1TAB28 PO (11:57)
== END 2020-12-20 14:20 | disposition home or self-care (01) ==
LOC: ER 11:46
DX: S61.412A Laceration without foreign body of left hand, initial encounter (principal); I13.0 Hypertensive heart and chronic kidney disease with heart failure and stage 1 through stage 4 chronic kidney disease, or unspecified chronic kidney disease; N18.9 Chronic kidney disease, unspecified; I50.9 Heart failure, unspecified; J44.9 Chronic obstructive pulmonary disease, unspecified; E78.5 Hyperlipidemia, unspecified; Z86.73 Personal history of transient ischemic attack (TIA), and cerebral infarction without residual deficits; W22.8XXA Striking against or struck by other objects, initial encounter; Y93.39 Activity, other involving climbing, rappelling and jumping off; Y92.89 Other specified places as the place of occurrence of the external cause; Y99.8 Other external cause status

== ENCOUNTER 2021-02-18 05:13 | Inpatient (IN) | payer MEDICARE, OTHER ==
[~2021-02-18] VITALS: Ht 175.3 cm; Wt 64.0 kg
[2021-02-18 06:39] LABS: Hematocrit 25.7 % (41.0-53.0); Hemoglobin 8.5 g/dL (13.5-17.5); Mean Corpuscular Hemoglobin 30.6 pg (28.0-32.0); Mean Corpuscular Hgb Conc. 33.2 g/dL (32.0-36.0); Mean Corpuscular Volume 91.9 fL (80.0-100.0); Platelet Count (auto) 239 10^3/uL (140-450); Red Cell Distribution Width 16.9 % (11.8-14.3); White Blood Cell 8.6 10^3/uL (4.4-10.8)
[2021-02-18] MEDS ORDERED: SODIUM CHLORIDE 0.9% 1,000 ML IV ONE ×2 (06:45→08:45)
[2021-02-18 06:56] LABS: Basophils % (manual) 0 (0.0-2.0); Blast Cells 0; Eosinophils % (manual) 0 (0-7); Myelocytes % 0; Promyelocytes % 0; Reactive Lymphocytes 0
[2021-02-18 06:58] LABS: Anion Gap 13 (5-15); Calcium 9.4 mg/dL (8.5-10.1); Carbon Dioxide 17 mmol/L (21-32); Chloride 112 mmol/L (98-107); Glucose 105 mg/dL (74-106); Potassium 4.1 mmol/L (3.5-5.1); Sodium 142 mmol/L (136-145)
[2021-02-18 07:05] LABS: BUN/Creatinine Ratio 24.1; GFR African American 16 mL/min; GFR Non-African American 13 mL/min
[2021-02-18 07:08] LABS: Blood Urea Nitrogen 113 mg/dL (7-18)
[2021-02-18 08:00] LABS: Band Neutrophils % (manual) 23; Lymphocytes % (manual) 5 (10.0-50.0); Metamyelocytes % 1; Monocytes % (manual) 15 (0-12)
[2021-02-18] MEDS ORDERED: cefTRIAXone 1GM/50ML D5W 50 ML IV ONE (08:45)
[2021-02-18] MEDS ORDERED: AZITHROMYCIN 500MG/ 250ML 250 ML IV ONE (08:45)
[2021-02-18] MEDS ORDERED: SODIUM BICARBONATE 50ML VIAL 150 ML in D5W 5% 1,000 ML IV ONE (09:30)
[2021-02-18 09:33] LABS: Urine Bacteria NONE SEEN /hpf (None Seen); Urine Blood Negative /uL (Negative); Urine Mucus FEW (None Seen); Urine Specific Gravity 1.017 (1.001-1.035); Urine WBC 1 /hpf (0 - 3)
[2021-02-18] MEDS ORDERED: SOD CHL 0.45% 1,000 ML IV ONE (10:30)
[2021-02-18] MEDS ORDERED: MORPHINE SULF INJ 2 MG/ML SYRINGE 1ML IV PRN (10:30)
[2021-02-18] MEDS ORDERED: NITROGLYCERIN 0.4 MG SL TAB SL PRN (10:30)
[2021-02-18] MEDS ORDERED: BISMUTH SUBSALICYLATE 262MG/15ml ORAL Susp PO SCH (12:00)
[2021-02-18] MEDS: FERROUS SULFATE 325mg EC TAB PO SCH ×3 (12:00→18:57)
[2021-02-18 12:50] VITALS: BP 144/79
[2021-02-18] MEDS ORDERED: CLINDAMYCIN 300MG IV 50 ML IV SCH (14:00)
[2021-02-18] MEDS: PIPERACILLIN-TAZOB 2.25GM 50 ML IV SCH ×2 (14:00→21:52)
[2021-02-18] MEDS: [UNRECOGNIZED DRUG - OTHER] PO SCH ×2 (14:00→21:55)
[2021-02-18] MEDS ORDERED: PIPERACILLIN-TAZOB 2.25GM 50 ML IV SCH (14:00)
[2021-02-18] MEDS: cloNIDine HCL 0.1 MG TAB PO SCH ×2 (14:45→21:55)
[2021-02-18] MEDS ORDERED: SODIUM BICARBONATE 50ML VIAL 50 ML in D5W 5% 1,000 ML IV SCH (15:15)
[2021-02-18] MEDS ORDERED: SODIUM BICARBONATE 50ML VIAL 150 ML in D5W 5% 1,000 ML IV SCH ×2 (15:15→18:30)
[2021-02-18 16:36] VITALS: BP 157/84
[2021-02-18] MEDS: CLINDAMYCIN 300MG IV 50 ML IV SCH (17:00)
[2021-02-18] MEDS: ALBUTEROL SULF 2.5 MG/0.5ML(0.5%) NEB SOLN NEB PRN (17:57)
[2021-02-18] MEDS ORDERED: FUROSEMIDE 20 MG/2 ML VIAL ONE (18:26)
[2021-02-18] MEDS ORDERED: FUROSEMIDE 20 MG/2 ML VIAL IV ONE ×2 (18:30→18:31)
[2021-02-18 20:00] VITALS: BP 148/66
[2021-02-18 21:35] VITALS: BP 160/68
[2021-02-18] MEDS: DOCUSATE SOD 100 MG CAP PO SCH (21:55)
[2021-02-18 23:34] VITALS: BP 160/68
[2021-02-19] MEDS: CLINDAMYCIN 300MG IV 50 ML IV SCH ×3 (01:04→17:00)
[2021-02-19 05:00] VITALS: BP 161/78
[2021-02-19] MEDS: PIPERACILLIN-TAZOB 2.25GM 50 ML IV SCH ×3 (05:33→22:00)
[2021-02-19] MEDS: [UNRECOGNIZED DRUG - OTHER] PO SCH ×3 (05:33→22:00)
[2021-02-19] MEDS: cloNIDine HCL 0.1 MG TAB PO SCH ×3 (05:34→22:08)
[2021-02-19 06:52] LABS: Albumin 1.9 g/dL (3.4-5.0); Potassium 3.6 mmol/L (3.5-5.1)
[2021-02-19 06:58] LABS: Bilirubin, Total 0.4 mg/dL (0.2-1.0); Total Protein 5.7 g/dL (6.4-8.2)
[2021-02-19 06:59] LABS: BUN/Creatinine Ratio 24.9; Basophils # (auto) 0 10 ^3/uL (0-0.2); Basophils % (auto) 0.1 % (0.0-2.0); Eosinophils # (auto) 0 10 ^3/uL (0-0.8); Eosinophils % (auto) 0.1 % (0.0-7.0); Hemoglobin 8.1 g/dL (13.5-17.5); Lymphocytes # (auto) 0.4 10 ^3/uL (0.4-5.4); Lymphocytes % (auto) 4.8 % (10.0-50.0); Mean Corpuscular Hemoglobin 30.4 pg (28.0-32.0); Mean Corpuscular Volume 89.6 fL (80.0-100.0); Monocytes # (auto) 1.4 10 ^3/uL (0-1.3); Monocytes % (auto) 17.1 % (0.0-12.0); Neutrophils # (auto) 6.5 10 ^3/uL (1.6-8.6); Neutrophils % (auto) 77.9 % (37.0-80.0); Nucleated Red Blood Cells % 0.3 %; Platelet Count (auto) 232 10^3/uL (140-450); Red Blood Cells 2.67 10^6/uL (4.5-5.90); Red Cell Distribution Width 16.9 % (11.8-14.3); White Blood Cell 8.3 10^3/uL (4.4-10.8)
[2021-02-19] MEDS: FERROUS SULFATE 325mg EC TAB PO SCH ×3 (08:00→17:31)
[2021-02-19] MEDS ORDERED: MORPHINE SULF INJ 2 MG/ML SYRINGE 1ML IV ONE (08:00)
[2021-02-19 09:00] VITALS: BP 142/75
[2021-02-19] MEDS: DOCUSATE SOD 100 MG CAP PO SCH ×2 (10:00→22:03)
[2021-02-19] MEDS: APIXABAN 2.5 MG TAB PO SCH (10:00)
[2021-02-19] MEDS: NIFEdipine ER 30 MG TAB PO SCH (10:00)
[2021-02-19] MEDS: PANTOPRAZOLE 40 MG TAB PO SCH (10:00)
[2021-02-19] MEDS: METOPROLOL SUCCINATE XL 50 MG TAB PO SCH (10:00)
[2021-02-19] MEDS ORDERED: CETI10CA PO (11:51)
[2021-02-19] MEDS ORDERED: CARV3.1240 PO (11:55)
[2021-02-19] MEDS ORDERED: HYDR-4296 PO (11:55)
[2021-02-19] MEDS ORDERED: ATO40T PO (11:55)
[2021-02-19] MEDS ORDERED: AMLO-489 PO (11:55)
[2021-02-19] MEDS ORDERED: TAM04C PO (11:57)
[2021-02-19] MEDS ORDERED: LIFI5DRO2 OP (11:57)
[2021-02-19] MEDS ORDERED: CYCL0.05 EACHEYE (11:57)
[2021-02-19] MEDS ORDERED: ISOS1TAB28 (11:57)
[2021-02-19] MEDS ORDERED: CALC3OIN2 PO (12:05)
[2021-02-19] MEDS ORDERED: CLOP75TA70 PO (12:05)
[2021-02-19] MEDS ORDERED: FER325T PO (12:07)
[2021-02-19] MEDS ORDERED: FLUT0.05 NAS (12:08)
[2021-02-19 13:00] VITALS: BP 129/61
[2021-02-19 13:34] LABS: % Iron Saturation 3.7 % (20-55)
[2021-02-19 13:46] LABS: Magnesium 2.8 mg/dL (1.6-2.6); Phosphorus 4.9 mg/dL (2.5-4.90)
[2021-02-19] MEDS: Acetam/CODEINE 120mg/12mg per 5mL UD GT PRN ×2 (14:30→20:31)
[2021-02-19] MEDS: ALBUTEROL SULF 2.5 MG/0.5ML(0.5%) NEB SOLN NEB PRN ×2 (16:09→19:56)
[2021-02-19 17:24] VITALS: BP 130/70
[2021-02-19] MEDS: TAMSULOSIN HYDROCHLORIDE 0.4 MG CAP PO SCH (17:31)
[2021-02-19 20:00] VITALS: BP 112/55
[2021-02-19] MEDS ORDERED: FUROSEMIDE 40 MG/4 ML VIAL IV ONE (21:15)
[2021-02-19 22:00] VITALS: BP 103/48
[2021-02-20] MEDS: CLINDAMYCIN 300MG IV 50 ML IV SCH ×3 (01:05→16:48)
[2021-02-20] MEDS: Acetam/CODEINE 120mg/12mg per 5mL UD GT PRN (04:14)
[2021-02-20 05:00] VITALS: BP 127/67
[2021-02-20] MEDS: PIPERACILLIN-TAZOB 2.25GM 50 ML IV SCH ×3 (05:53→22:09)
[2021-02-20] MEDS: [UNRECOGNIZED DRUG - OTHER] PO SCH ×3 (05:53→22:00)
[2021-02-20] MEDS: cloNIDine HCL 0.1 MG TAB PO SCH (05:54)
[2021-02-20] MEDS ORDERED: FLEET ENEMA(ADULT) 135 ML PR ONE (06:00)
[2021-02-20 07:15] LABS: Potassium 3.8 mmol/L (3.5-5.1)
[2021-02-20 07:21] LABS: BUN/Creatinine Ratio 23.4; Calcium 7.8 mg/dL (8.5-10.1)
[2021-02-20 08:00] VITALS: BP 123/65
[2021-02-20] MEDS: FERROUS SULFATE 325mg EC TAB PO SCH ×3 (08:00→18:15)
[2021-02-20] MEDS ORDERED: cloNIDine HCL 0.1 MG TAB PO PRN (08:15)
[2021-02-20 09:00] VITALS: BP 123/65
[2021-02-20] MEDS: ALBUTEROL SULF 2.5 MG/0.5ML(0.5%) NEB SOLN NEB PRN (10:08)
[2021-02-20] MEDS: DOCUSATE SOD 100 MG CAP PO SCH ×2 (10:20→22:09)
[2021-02-20] MEDS: PANTOPRAZOLE 40 MG TAB PO SCH (10:21)
[2021-02-20] MEDS: APIXABAN 2.5 MG TAB PO SCH (10:21)
[2021-02-20] MEDS: METOPROLOL SUCCINATE XL 50 MG TAB PO SCH (10:21)
[2021-02-20] MEDS: NIFEdipine ER 30 MG TAB PO SCH (10:21)
[2021-02-20] MEDS ORDERED: FUROSEMIDE 100 MG/10ML VIAL IV ONE (12:45)
[2021-02-20 13:00] VITALS: BP 123/57
[2021-02-20 13:42] LABS: Sodium Urine 11 mmol/L (40-220)
[2021-02-20 13:45] LABS: Creatinine, Urine 83 mg/dL (30.0-125.0)
[2021-02-20] MEDS: ACETAMINOPHEN 500 MG TAB PO PRN (16:49)
[2021-02-20 17:00] VITALS: BP 115/58
[2021-02-20] MEDS: TAMSULOSIN HYDROCHLORIDE 0.4 MG CAP PO SCH (18:00)
[2021-02-20 22:00] VITALS: BP 144/66
[2021-02-21] MEDS: CLINDAMYCIN 300MG IV 50 ML IV SCH ×3 (00:59→17:45)
[2021-02-21] MEDS: MORPHINE SULF INJ 2 MG/ML SYRINGE 1ML IV PRN (01:20)
[2021-02-21 05:00] VITALS: BP 145/65
[2021-02-21] MEDS: [UNRECOGNIZED DRUG - OTHER] PO SCH ×3 (06:00→21:17)
[2021-02-21] MEDS: PIPERACILLIN-TAZOB 2.25GM 50 ML IV SCH ×3 (06:30→21:17)
[2021-02-21 07:23] LABS: Albumin 2.2 g/dL (3.4-5.0); Calcium 7.9 mg/dL (8.5-10.1); Potassium 3.6 mmol/L (3.5-5.1)
[2021-02-21 07:27] LABS: BUN/Creatinine Ratio 23.5; Bilirubin, Total 0.5 mg/dL (0.2-1.0); Phosphorus 6.9 mg/dL (2.5-4.90); Total Protein 6.7 g/dL (6.4-8.2)
[2021-02-21 08:00] VITALS: BP 139/71
[2021-02-21] MEDS: FERROUS SULFATE 325mg EC TAB PO SCH ×3 (08:00→17:43)
[2021-02-21 08:46] VITALS: BP 139/71
[2021-02-21] MEDS: FUROSEMIDE 100 MG/10ML VIAL IV SCH (09:41)
[2021-02-21] MEDS: APIXABAN 2.5 MG TAB PO SCH (09:42)
[2021-02-21 10:09] LABS: INR 1.24 (0.9-1.15); Partial Thromboplastin Time 34.1 sec (23.0-31.2)
[2021-02-21] MEDS ORDERED: POTASSIUM CHL 20 Meq TABLET PO ONE (10:15)
[2021-02-21] MEDS: SODIUM BICARBONATE 50ML VIAL 50 ML in SOD CHL 0.45% 1,000 ML IV SCH ×2 (11:05→23:23)
[2021-02-21] MEDS: DOCUSATE SOD 100 MG CAP PO SCH ×2 (11:05→21:17)
[2021-02-21] MEDS: NIFEdipine ER 30 MG TAB PO SCH (11:06)
[2021-02-21] MEDS: METOPROLOL SUCCINATE XL 50 MG TAB PO SCH (11:06)
[2021-02-21] MEDS: PANTOPRAZOLE 40 MG TAB PO SCH (11:07)
[2021-02-21 12:36] VITALS: BP 158/81
[2021-02-21] MEDS: ALBUTEROL SULF 2.5 MG/0.5ML(0.5%) NEB SOLN NEB PRN (13:07)
[2021-02-21 16:50] VITALS: BP 131/74
[2021-02-21] MEDS: CALCIUM ACETATE 667 MG CAP PO SCH (17:43)
[2021-02-21] MEDS: TAMSULOSIN HYDROCHLORIDE 0.4 MG CAP PO SCH (17:44)
[2021-02-21 21:57] VITALS: BP 138/70
[2021-02-22] MEDS: CLINDAMYCIN 300MG IV 50 ML IV SCH ×3 (00:34→17:25)
[2021-02-22 01:24] VITALS: BP 138/70
[2021-02-22 05:27] VITALS: BP 141/68
[2021-02-22] MEDS: PIPERACILLIN-TAZOB 2.25GM 50 ML IV SCH ×3 (06:00→21:08)
[2021-02-22] MEDS: [UNRECOGNIZED DRUG - OTHER] PO SCH ×3 (06:00→20:53)
[2021-02-22 06:22] LABS: Potassium 3.8 mmol/L (3.5-5.1)
[2021-02-22 06:34] LABS: BUN/Creatinine Ratio 25.2; Calcium 7.8 mg/dL (8.5-10.1); Phosphorus 7.3 mg/dL (2.5-4.90)
[2021-02-22 08:00] VITALS: BP 132/78
[2021-02-22 09:00] VITALS: BP 132/78
[2021-02-22] MEDS: FERROUS SULFATE 325mg EC TAB PO SCH ×3 (09:39→18:15)
[2021-02-22] MEDS: CALCIUM ACETATE 667 MG CAP PO SCH ×3 (09:40→18:15)
[2021-02-22] MEDS: FUROSEMIDE 100 MG/10ML VIAL IV SCH (09:41)
[2021-02-22] MEDS: APIXABAN 2.5 MG TAB PO SCH (09:41)
[2021-02-22] MEDS: DOCUSATE SOD 100 MG CAP PO SCH ×2 (09:41→21:08)
[2021-02-22] MEDS: PANTOPRAZOLE 40 MG TAB PO SCH (09:42)
[2021-02-22] MEDS: NIFEdipine ER 30 MG TAB PO SCH (09:42)
[2021-02-22] MEDS: METOPROLOL SUCCINATE XL 50 MG TAB PO SCH (09:43)
[2021-02-22 13:00] VITALS: BP 131/71
[2021-02-22] MEDS: Nepro With Carbsteady Vanilla 8oz Carton PO SCH ×2 (13:51→18:22)
[2021-02-22 17:30] LABS: Hepatitis B Core IgM Negative; Hepatitis C Antibody Negative (Negative)
[2021-02-22 17:31] LABS: Hepatitis A Ab IgM Negative; Hepatitis B Surface Antigen Negative (Negative)
[2021-02-22] MEDS: TAMSULOSIN HYDROCHLORIDE 0.4 MG CAP PO SCH (18:15)
[2021-02-22 22:00] VITALS: BP 131/70
[2021-02-22] MEDS: MORPHINE SULF INJ 2 MG/ML SYRINGE 1ML IV PRN (23:31)
[2021-02-23] MEDS: CLINDAMYCIN 300MG IV 50 ML IV SCH ×3 (00:48→18:29)
[2021-02-23 05:00] VITALS: BP 151/81
[2021-02-23] MEDS: [UNRECOGNIZED DRUG - OTHER] PO SCH ×3 (05:06→20:55)
[2021-02-23] MEDS: PIPERACILLIN-TAZOB 2.25GM 50 ML IV SCH ×3 (05:26→21:13)
[2021-02-23] MEDS ORDERED: SODIUM CHL 0.9% 1000 ML BAG XX ONE (07:00)
[2021-02-23 07:54] LABS: Calcium 8.6 mg/dL (8.5-10.1); Potassium 3.5 mmol/L (3.5-5.1)
[2021-02-23] MEDS: Nepro With Carbsteady Vanilla 8oz Carton PO SCH ×3 (08:00→18:00)
[2021-02-23] MEDS: FERROUS SULFATE 325mg EC TAB PO SCH ×3 (08:25→18:30)
[2021-02-23] MEDS: CALCIUM ACETATE 667 MG CAP PO SCH ×3 (08:25→18:30)
[2021-02-23 09:00] VITALS: BP 143/76
[2021-02-23] MEDS: APIXABAN 2.5 MG TAB PO SCH (10:00)
[2021-02-23] MEDS: DOCUSATE SOD 100 MG CAP PO SCH ×2 (10:10→21:14)
[2021-02-23] MEDS: NIFEdipine ER 30 MG TAB PO SCH (10:11)
[2021-02-23] MEDS: PANTOPRAZOLE 40 MG TAB PO SCH (10:11)
[2021-02-23] MEDS: METOPROLOL SUCCINATE XL 50 MG TAB PO SCH (10:11)
[2021-02-23] MEDS ORDERED: LIDOCAINE 2%HCL (LOCAL ANESTH.) INJ 20ML MDV ONE ×2 (11:53→12:24)
[2021-02-23] MEDS ORDERED: fentaNYL CITRATE 100 MCG/2 ML VL ONE (11:55)
[2021-02-23] MEDS ORDERED: MIDAZOLAM HCL 1MG/1ML-2 ML VIAL ONE (11:56)
[2021-02-23] MEDS ORDERED: HEPARIN SODIUM (PORCINE) 5000 UNITS/ML 1ML VIAL ONE (12:33)
[2021-02-23 14:25] VITALS: BP 127/97
[2021-02-23 16:53] VITALS: BP 115/88
[2021-02-23] MEDS: TAMSULOSIN HYDROCHLORIDE 0.4 MG CAP PO SCH (18:30)
[2021-02-23] MEDS: ACETAMINOPHEN 500 MG TAB PO PRN (20:22)
[2021-02-23 22:27] VITALS: BP 146/62
[2021-02-24] MEDS: CLINDAMYCIN 300MG IV 50 ML IV SCH ×3 (00:42→18:43)
[2021-02-24 05:30] VITALS: BP 141/76
[2021-02-24 05:30] LABS: Hematocrit 26.1 % (41.0-53.0); Hemoglobin 8.9 g/dL (13.5-17.5); Mean Corpuscular Hemoglobin 30.2 pg (28.0-32.0); Mean Corpuscular Hgb Conc. 34.1 g/dL (32.0-36.0); Mean Corpuscular Volume 88.4 fL (80.0-100.0); Platelet Count (auto) 349 10^3/uL (140-450); Red Blood Cells 2.95 10^6/uL (4.5-5.90); Red Cell Distribution Width 17.2 % (11.8-14.3); White Blood Cell 13.9 10^3/uL (4.4-10.8)
[2021-02-24 05:47] LABS: BUN/Creatinine Ratio 24.8; Calcium 8.2 mg/dL (8.5-10.1); Potassium 3.3 mmol/L (3.5-5.1)
[2021-02-24 05:52] LABS: Band Neutrophils % (manual) 0; Basophils % (manual) 0 (0.0-2.0); Blast Cells 0; Promyelocytes % 0; Reactive Lymphocytes 0
[2021-02-24] MEDS: [UNRECOGNIZED DRUG - OTHER] PO SCH (05:52)
[2021-02-24] MEDS: PIPERACILLIN-TAZOB 2.25GM 50 ML IV SCH ×3 (05:52→21:53)
[2021-02-24] MEDS: Nepro With Carbsteady Vanilla 8oz Carton PO SCH ×3 (08:00→18:00)
[2021-02-24] MEDS: FERROUS SULFATE 325mg EC TAB PO SCH ×3 (08:27→17:35)
[2021-02-24] MEDS: CALCIUM ACETATE 667 MG CAP PO SCH ×3 (08:28→17:36)
[2021-02-24 09:00] VITALS: BP 128/84
[2021-02-24 09:02] LABS: Eosinophils % (manual) 4 (0-7); Lymphocytes % (manual) 5 (10.0-50.0); Metamyelocytes % 1; Monocytes % (manual) 7 (0-12); Myelocytes % 1
[2021-02-24 09:29] LABS: Hemoglobin 8.8 g/dL (13.5-17.5); Mean Corpuscular Hemoglobin 29.1 pg (28.0-32.0); Mean Corpuscular Hgb Conc. 32.8 g/dL (32.0-36.0); Mean Corpuscular Volume 88.9 fL (80.0-100.0); Platelet Count (auto) 352 10^3/uL (140-450); Red Blood Cells 3.04 10^6/uL (4.5-5.90); Red Cell Distribution Width 17.4 % (11.8-14.3); White Blood Cell 14.4 10^3/uL (4.4-10.8)
[2021-02-24 09:34] LABS: Basophils % (manual) 0 (0.0-2.0); Blast Cells 0; Eosinophils % (manual) 0 (0-7); Metamyelocytes % 0; Myelocytes % 0; Promyelocytes % 0; Reactive Lymphocytes 0
[2021-02-24 09:46] LABS: BUN/Creatinine Ratio 24.7; Calcium 8.1 mg/dL (8.5-10.1); Potassium 3.3 mmol/L (3.5-5.1)
[2021-02-24] MEDS: MORPHINE SULF INJ 2 MG/ML SYRINGE 1ML IV PRN ×2 (09:49→17:37)
[2021-02-24] MEDS ORDERED: POTASSIUM CHL 20MEQ/100ML 100 ML IV ONE (10:45)
[2021-02-24 11:05] LABS: Band Neutrophils % (manual) 6; Lymphocytes % (manual) 4 (10.0-50.0); Monocytes % (manual) 10 (0-12)
[2021-02-24] MEDS: DOCUSATE SOD 100 MG CAP PO SCH ×2 (11:33→21:59)
[2021-02-24] MEDS: PANTOPRAZOLE 40 MG TAB PO SCH (11:34)
[2021-02-24] MEDS: APIXABAN 2.5 MG TAB PO SCH (11:34)
[2021-02-24] MEDS: NIFEdipine ER 30 MG TAB PO SCH (11:35)
[2021-02-24] MEDS: METOPROLOL SUCCINATE XL 50 MG TAB PO SCH (11:35)
[2021-02-24 13:00] VITALS: BP 113/53
[2021-02-24 17:00] VITALS: BP 144/65
[2021-02-24] MEDS: TAMSULOSIN HYDROCHLORIDE 0.4 MG CAP PO SCH (17:36)
[2021-02-24 22:00] VITALS: BP 134/74
[2021-02-25] MEDS: CLINDAMYCIN 300MG IV 50 ML IV SCH ×3 (01:10→17:04)
[2021-02-25 05:00] VITALS: BP 152/75
[2021-02-25] MEDS: PIPERACILLIN-TAZOB 2.25GM 50 ML IV SCH ×3 (05:52→21:41)
[2021-02-25] MEDS ORDERED: SODIUM CHL 0.9% 1000 ML BAG XX ONE (07:00)
[2021-02-25 07:27] LABS: Calcium 8.1 mg/dL (8.5-10.1); Potassium 3.6 mmol/L (3.5-5.1)
[2021-02-25 07:32] LABS: BUN/Creatinine Ratio 23.8
[2021-02-25 08:00] VITALS: BP 159/66
[2021-02-25 09:00] VITALS: BP 159/66
[2021-02-25 09:39] LABS: Folate (Folic Acid) 8.52 ng/mL (5.38-24)
[2021-02-25] MEDS: NIFEdipine ER 30 MG TAB PO SCH (10:00)
[2021-02-25] MEDS: PANTOPRAZOLE 40 MG TAB PO SCH (10:07)
[2021-02-25] MEDS: METOPROLOL SUCCINATE XL 50 MG TAB PO SCH (10:08)
[2021-02-25] MEDS: APIXABAN 2.5 MG TAB PO SCH ×2 (10:08→21:52)
[2021-02-25] MEDS: DOCUSATE SOD 100 MG CAP PO SCH ×2 (10:09→22:00)
[2021-02-25] MEDS: Nepro With Carbsteady Vanilla 8oz Carton PO SCH ×3 (10:16→17:06)
[2021-02-25] MEDS: CALCIUM ACETATE 667 MG CAP PO SCH ×3 (10:16→17:06)
[2021-02-25] MEDS: FERROUS SULFATE 325mg EC TAB PO SCH ×3 (10:16→17:05)
[2021-02-25 13:00] VITALS: BP 170/84
[2021-02-25 17:05] VITALS: BP 160/90
[2021-02-25] MEDS: TAMSULOSIN HYDROCHLORIDE 0.4 MG CAP PO SCH (17:06)
[2021-02-25 21:57] VITALS: BP 163/71
[2021-02-25 23:22] LABS: Hematocrit 24.3 % (41.0-53.0); Red Blood Cells 2.74 10^6/uL (4.5-5.90)
[2021-02-25 23:24] LABS: Hemoglobin 8.4 g/dL (13.5-17.5); Mean Corpuscular Hemoglobin 30.5 pg (28.0-32.0); Mean Corpuscular Hgb Conc. 34.4 g/dL (32.0-36.0); Mean Corpuscular Volume 88.6 fL (80.0-100.0); Platelet Count (auto) 266 10^3/uL (140-450); White Blood Cell 12.2 10^3/uL (4.4-10.8)
[2021-02-25 23:27] LABS: Basophils % (manual) 0 (0.0-2.0); Blast Cells 0; Metamyelocytes % 0; Monocytes % (manual) 0 (0-12); Myelocytes % 0; Promyelocytes % 0; Reactive Lymphocytes 0
[2021-02-26] VITALS (7 sets, daily range): BP systolic 145–175; BP diastolic 64–82
[2021-02-26 00:15] LABS: Band Neutrophils % (manual) 2; Eosinophils % (manual) 2 (0-7); Lymphocytes % (manual) 3 (10.0-50.0)
[2021-02-26] MEDS: CLINDAMYCIN 300MG IV 50 ML IV SCH ×3 (01:36→18:03)
[2021-02-26] MEDS: PIPERACILLIN-TAZOB 2.25GM 50 ML IV SCH ×3 (05:30→21:36)
[2021-02-26 05:39] LABS: Calcium 7.7 mg/dL (8.5-10.1); Potassium 3.6 mmol/L (3.5-5.1)
[2021-02-26 05:41] LABS: BUN/Creatinine Ratio 19.2
[2021-02-26] MEDS: FERROUS SULFATE 325mg EC TAB PO SCH ×3 (08:48→18:12)
[2021-02-26] MEDS: CALCIUM ACETATE 667 MG CAP PO SCH ×3 (08:49→18:13)
[2021-02-26] MEDS: Nepro With Carbsteady Vanilla 8oz Carton PO SCH ×3 (08:49→18:12)
[2021-02-26] MEDS: DOCUSATE SOD 100 MG CAP PO SCH ×2 (09:03→21:46)
[2021-02-26] MEDS: PANTOPRAZOLE 40 MG TAB PO SCH (09:04)
[2021-02-26] MEDS: NIFEdipine ER 30 MG TAB PO SCH (09:04)
[2021-02-26] MEDS: APIXABAN 2.5 MG TAB PO SCH ×2 (09:04→21:36)
[2021-02-26] MEDS: METOPROLOL SUCCINATE XL 50 MG TAB PO SCH (09:05)
[2021-02-26] MEDS: TAMSULOSIN HYDROCHLORIDE 0.4 MG CAP PO SCH (18:12)
[2021-02-27] MEDS: CLINDAMYCIN 300MG IV 50 ML IV SCH ×2 (01:44→09:00)
[2021-02-27 05:00] VITALS: BP 161/71
[2021-02-27] MEDS: PIPERACILLIN-TAZOB 2.25GM 50 ML IV SCH ×3 (05:09→22:18)
[2021-02-27 08:00] VITALS: BP 145/68
[2021-02-27] MEDS: FERROUS SULFATE 325mg EC TAB PO SCH ×3 (08:22→18:15)
[2021-02-27] MEDS: CALCIUM ACETATE 667 MG CAP PO SCH ×3 (08:22→18:15)
[2021-02-27] MEDS: Nepro With Carbsteady Vanilla 8oz Carton PO SCH ×3 (08:22→18:15)
[2021-02-27 09:00] VITALS: BP 124/69
[2021-02-27] MEDS: DOCUSATE SOD 100 MG CAP PO SCH ×2 (10:00→22:19)
[2021-02-27 12:58] VITALS: BP 150/75
[2021-02-27] MEDS: APIXABAN 2.5 MG TAB PO SCH ×2 (13:01→22:18)
[2021-02-27] MEDS: METOPROLOL SUCCINATE XL 50 MG TAB PO SCH (13:02)
[2021-02-27] MEDS: NIFEdipine ER 30 MG TAB PO SCH (13:02)
[2021-02-27] MEDS: PANTOPRAZOLE 40 MG TAB PO SCH (13:02)
[2021-02-27 17:00] VITALS: BP 147/69
[2021-02-27] MEDS: TAMSULOSIN HYDROCHLORIDE 0.4 MG CAP PO SCH (18:15)
[2021-02-27 22:00] VITALS: BP 145/61
[2021-02-28] VITALS (7 sets, daily range): BP systolic 133–160; BP diastolic 57–81
[2021-02-28 06:05] LABS: Basophils # (auto) 0.1 10 ^3/uL (0-0.2); Eosinophils # (auto) 0.2 10 ^3/uL (0-0.8); Eosinophils % (auto) 1.7 % (0.0-7.0); Hematocrit 23.8 % (41.0-53.0); White Blood Cell 11.2 10^3/uL (4.4-10.8)
[2021-02-28 06:12] LABS: Basophils % (auto) 0.7 % (0.0-2.0); Lymphocytes # (auto) 0.8 10 ^3/uL (0.4-5.4); Lymphocytes % (auto) 7.2 % (10.0-50.0); Mean Corpuscular Hemoglobin 29.7 pg (28.0-32.0); Mean Corpuscular Hgb Conc. 33.6 g/dL (32.0-36.0); Mean Corpuscular Volume 88.4 fL (80.0-100.0); Monocytes # (auto) 1.2 10 ^3/uL (0-1.3); Monocytes % (auto) 10.3 % (0.0-12.0); Neutrophils % (auto) 80.1 % (37.0-80.0); Nucleated Red Blood Cells % 0.1 %; Platelet Count (auto) 230 10^3/uL (140-450); Red Blood Cells 2.69 10^6/uL (4.5-5.90); Red Cell Distribution Width 17.2 % (11.8-14.3)
[2021-02-28 06:22] LABS: Potassium 3.4 mmol/L (3.5-5.1)
[2021-02-28 06:36] LABS: Albumin 1.9 g/dL (3.4-5.0); Bilirubin, Total 0.4 mg/dL (0.2-1.0); Calcium 7.8 mg/dL (8.5-10.1); Total Protein 5.8 g/dL (6.4-8.2)
[2021-02-28] MEDS: Nepro With Carbsteady Vanilla 8oz Carton PO SCH ×2 (08:20→13:56)
[2021-02-28] MEDS: CALCIUM ACETATE 667 MG CAP PO SCH ×3 (08:20→18:08)
[2021-02-28] MEDS: FERROUS SULFATE 325mg EC TAB PO SCH ×3 (08:20→18:05)
[2021-02-28] MEDS: DOCUSATE SOD 100 MG CAP PO SCH ×2 (09:29→21:47)
[2021-02-28] MEDS: PIPERACILLIN-TAZOB 2.25GM 50 ML IV SCH ×2 (09:29→21:47)
[2021-02-28] MEDS: PANTOPRAZOLE 40 MG TAB PO SCH (09:30)
[2021-02-28] MEDS: APIXABAN 2.5 MG TAB PO SCH ×2 (09:30→21:48)
[2021-02-28] MEDS: NIFEdipine ER 30 MG TAB PO SCH (09:31)
[2021-02-28] MEDS: METOPROLOL SUCCINATE XL 50 MG TAB PO SCH (09:32)
[2021-02-28] MEDS: Ensure HIGH Protein Chocolate 8oz Bottle PO SCH (18:00)
[2021-02-28] MEDS: TAMSULOSIN HYDROCHLORIDE 0.4 MG CAP PO SCH (18:08)
[2021-02-28] MEDS ORDERED: DONEPEZIL HYDROCHLORIDE 5 MG TAB PO SCH (22:00)
[2021-03-01 04:30] VITALS: BP 169/81
[2021-03-01] MEDS: CALCIUM ACETATE 667 MG CAP PO SCH ×2 (08:40→12:00)
[2021-03-01] MEDS: NIFEdipine ER 30 MG TAB PO SCH (08:41)
[2021-03-01] MEDS: METOPROLOL SUCCINATE XL 50 MG TAB PO SCH (08:43)
[2021-03-01] MEDS: APIXABAN 2.5 MG TAB PO SCH (08:43)
[2021-03-01] MEDS: DOCUSATE SOD 100 MG CAP PO SCH (08:44)
[2021-03-01] MEDS: PANTOPRAZOLE 40 MG TAB PO SCH (08:44)
[2021-03-01] MEDS: FERROUS SULFATE 325mg EC TAB PO SCH ×2 (08:44→12:00)
[2021-03-01] MEDS: Ensure HIGH Protein Chocolate 8oz Bottle PO SCH ×2 (08:45→12:00)
[2021-03-01] MEDS: PIPERACILLIN-TAZOB 2.25GM 50 ML IV SCH (08:45)
[2021-03-01 09:00] VITALS: BP 159/85
[2021-03-01] MEDS ORDERED: PANT40TA2 PO (09:55)
[2021-03-01] MEDS ORDERED: TAM04C PO (09:55)
[2021-03-01] MEDS ORDERED: NIFE1TAB30 PO (09:55)
[2021-03-01] MEDS ORDERED: METO25TA93 PO (09:55)
[2021-03-01 12:31] VITALS: BP 150/76
== END 2021-03-01 17:10 | disposition home health service (06) | DRG 871 ==
LOC: EDBD 05:13 → ER 05:13 → TELE 10:21 → TELE-WESTW 11:54 → TELE-CENTR 02-22 15:47
PROVIDERS: ADMIT Specialist; ATTEND Specialist
PROC: 5A1D70Z Performance of Urinary Filtration, Intermittent, Less than 6 Hours Per Day (ICD-10-PCS; 2021-02-23)
PROC: 02H633Z Insertion of Infusion Device into Right Atrium, Percutaneous Approach (ICD-10-PCS; 2021-02-23)
PROC: B5181ZA Fluoroscopy of Superior Vena Cava using Low Osmolar Contrast, Guidance (ICD-10-PCS; 2021-02-23)
PROC: B548ZZA Ultrasonography of Superior Vena Cava, Guidance (ICD-10-PCS; 2021-02-23)
PROC: 0JH63XZ Insertion of Tunneled Vascular Access Device into Chest Subcutaneous Tissue and Fascia, Percutaneous Approach (ICD-10-PCS; 2021-02-23)
PROC: 5A1D70Z Performance of Urinary Filtration, Intermittent, Less than 6 Hours Per Day (ICD-10-PCS; 2021-02-25)
PROC: 5A1D70Z Performance of Urinary Filtration, Intermittent, Less than 6 Hours Per Day (ICD-10-PCS; principal; 2021-02-27)
DX: A41.9 Sepsis, unspecified organism (principal); I26.09 Other pulmonary embolism with acute cor pulmonale; J69.0 Pneumonitis due to inhalation of food and vomit; G92 Toxic encephalopathy; J96.21 Acute and chronic respiratory failure with hypoxia; N18.6 End stage renal disease; I50.43 Acute on chronic combined systolic (congestive) and diastolic (congestive) heart failure; E87.2 Acidosis; I13.2 Hypertensive heart and chronic kidney disease with heart failure and with stage 5 chronic kidney disease, or end stage renal disease; J44.0 Chronic obstructive pulmonary disease with (acute) lower respiratory infection; N17.9 Acute kidney failure, unspecified; I25.5 Ischemic cardiomyopathy; K40.20 Bilateral inguinal hernia, without obstruction or gangrene, not specified as recurrent; E78.5 Hyperlipidemia, unspecified; E78.00 Pure hypercholesterolemia, unspecified; D64.9 Anemia, unspecified; F02.80 Dementia in other diseases classified elsewhere, unspecified severity, without behavioral disturbance, psychotic disturbance, mood disturbance, and anxiety; F17.200 Nicotine dependence, unspecified, uncomplicated; F43.10 Post-traumatic stress disorder, unspecified; G30.9 Alzheimer's disease, unspecified; I25.10 Atherosclerotic heart disease of native coronary artery without angina pectoris; N28.1 Cyst of kidney, acquired; N40.0 Benign prostatic hyperplasia without lower urinary tract symptoms; Z20.822 Contact with and (suspected) exposure to COVID-19; Z78.1 Physical restraint status; Z79.01 Long term (current) use of anticoagulants; Z79.899 Other long term (current) drug therapy; Z82.49 Family history of ischemic heart disease and other diseases of the circulatory system; Z86.73 Personal history of transient ischemic attack (TIA), and cerebral infarction without residual deficits; Z86.79 Personal history of other diseases of the circulatory system; Z99.2 Dependence on renal dialysis; Z91.012 Allergy to eggs; I48.91 Unspecified atrial fibrillation
CPT/HCPCS: 36415; 36561; 36600; 70450; 70490; 71045; 71047; 76775; 76942; 77001; 80048; 80053; 80061; 80074; 80320; 81001; 82140; 82570; 82607; 82746; 82805; 82962; 83540; 83550; 83605; 83735; 83880; 84100; 84300; 84443; 84484; 85007; 85025; 85027; 85610; 85730; 86850; 86900; 86901; 87040; 87340; 87426; 90935; 93005; 93306; 93886; 94640; 95819; 96361; 96365; 96368; 99152; 99291; A4565; G0378; J0696; J1642; J2250; J2543; J3480; J3490

== ENCOUNTER 2021-03-05 18:41 | Inpatient (IN) | payer MEDICARE, OTHER ==
[~2021-03-05] VITALS: Ht 172.7 cm; Wt 65.0 kg
[~2021-03-05 18:41] MED LIST changes: +ATO40T PO; +CALC3OIN2 PO; +CARV3.1240 PO; +CETI10CA PO; +CLOP75TA70 PO; +CYCL0.05 EACHEYE; -DOXY100C2 PO; +FER325T PO; -FERR-20 PO; +FLUT0.05 NAS; +HYDR-4296 PO; +ISOS1TAB28 PO; +LIFI5DRO2 OP; -METR500T14 PO
[2021-03-05] MEDS ORDERED: HYDROcodone-ACET 10/325MG TAB PO ONE (19:00)
[2021-03-05 19:21] LABS: Basophils # (auto) 0.1 10 ^3/uL (0-0.2); Basophils % (auto) 0.7 % (0.0-2.0); Eosinophils # (auto) 0 10 ^3/uL (0-0.8); Eosinophils % (auto) 0.3 % (0.0-7.0); Hematocrit 26.2 % (41.0-53.0); Hemoglobin 8.9 g/dL (13.5-17.5); Lymphocytes # (auto) 0.3 10 ^3/uL (0.4-5.4); Mean Corpuscular Hemoglobin 30.7 pg (28.0-32.0); Mean Corpuscular Hgb Conc. 34.1 g/dL (32.0-36.0); Mean Corpuscular Volume 90.2 fL (80.0-100.0); Monocytes % (auto) 9.6 % (0.0-12.0); Neutrophils # (auto) 9.1 10 ^3/uL (1.6-8.6); Neutrophils % (auto) 86.4 % (37.0-80.0); Nucleated Red Blood Cells % 0.1 %; Platelet Count (auto) 276 10^3/uL (140-450); Red Cell Distribution Width 18.3 % (11.8-14.3); White Blood Cell 10.5 10^3/uL (4.4-10.8)
[2021-03-05 19:37] LABS: INR 1.17 (0.9-1.15); Partial Thromboplastin Time 33.3 sec (23.0-31.2)
[2021-03-05 19:49] LABS: Albumin 2.2 g/dL (3.4-5.0); Calcium 7.2 mg/dL (8.5-10.1); Potassium 4.4 mmol/L (3.5-5.1)
[2021-03-05 19:55] LABS: BUN/Creatinine Ratio 12.2; Bilirubin, Total 0.2 mg/dL (0.2-1.0); Total Protein 6.6 g/dL (6.4-8.2)
[2021-03-05] MEDS ORDERED: cefTRIAXone 1GM/50ML D5W 50 ML IV ONE (20:00)
[2021-03-05] MEDS ORDERED: ONDANSETRON HCL 4 MG/2 ML VIAL IV ONE (20:15)
[2021-03-05] MEDS ORDERED: fentaNYL CITRATE 100 MCG/2 ML VL IV ONE ×2 (20:15→22:00)
[2021-03-05 21:08] LABS: Urine WBC None Seen /hpf (0 - 3)
[2021-03-05 21:16] LABS: Urine Bacteria FEW /hpf (None Seen); Urine Blood Negative /uL (Negative); Urine Specific Gravity 1.016 (1.001-1.035)
[2021-03-05] MEDS ORDERED: DOCUSATE SOD 100 MG CAP PO PRN (22:30)
[2021-03-05] MEDS ORDERED: NITROGLYCERIN 0.4 MG SL TAB SL PRN (22:30)
[2021-03-05] MEDS ORDERED: ACETAMINOPHEN 325 MG TAB PO PRN (22:30)
[2021-03-05] MEDS ORDERED: MORPHINE SULF INJ 2 MG/ML SYRINGE 1ML IV PRN (22:30)
[2021-03-05] MEDS ORDERED: ONDANSETRON HCL 4 MG/2 ML VIAL IV PRN (22:30)
[2021-03-05] MEDS: hydrALAZINE HCL 20 MG/ML VL IV PRN (22:58)
[2021-03-05 23:30] VITALS: BP 176/83
[2021-03-06 00:45] VITALS: BP 134/61
[2021-03-06] MEDS ORDERED: ACETAMINOPHEN 325 MG TAB PO PRN ×2 (04:15→22:30)
[2021-03-06] MEDS ORDERED: MORPHINE SULF INJ 2 MG/ML SYRINGE 1ML ONE (04:25)
[2021-03-06] MEDS: MORPHINE SULFATE 4 MG/ML SYR/VIAL IV PRN ×4 (04:40→23:17)
[2021-03-06 05:00] VITALS: BP 143/56
[2021-03-06] MEDS: SODIUM CHLOR 0.9% PF (SALINE LOCK) 10ML VIAL/SYR IV SCH ×2 (06:21→23:57)
[2021-03-06 08:00] VITALS: BP 152/81
[2021-03-06 08:27] VITALS: BP 152/81
[2021-03-06] MEDS: FAMOTIDINE (10MG/ML) 2ML VL IV SCH (09:19)
[2021-03-06] MEDS: cefTRIAXone 1GM/50ML D5W 50 ML IV SCH (09:20)
[2021-03-06] MEDS: HEPARIN SODIUM (PORCINE) 5000 UNITS/ML 1ML VIAL SC SCH ×2 (09:34→22:00)
[2021-03-06] MEDS ORDERED: metroNIDAZOLE 500MG/100ML 100 ML IV ONE (10:38)
[2021-03-06] MEDS ORDERED: LIDOCAINE W/ EPINEPHRINE 1% 20ML VIAL ONE (10:54)
[2021-03-06] MEDS ORDERED: BUPIVACAINE 0.25% INJ 50ML VIAL ONE (10:55)
[2021-03-06] MEDS ORDERED: DexAMETHasone SOD PHOS 10MG/1ML VIAL INJ ONE (11:24)
[2021-03-06] MEDS ORDERED: PROPOFOL 10 MG/ML 20 ML IV ONE (11:24)
[2021-03-06] MEDS ORDERED: ONDANSETRON HCL 4 MG/2 ML VIAL ONE (11:24)
[2021-03-06] MEDS ORDERED: ROCURONIUM 10MG/ML 10ML VIAL IV ONE (11:25)
[2021-03-06] MEDS ORDERED: SUCCINYLCHOLINE CHLORIDE 20 MG/ML 10ML VIAL IV ONE (11:27)
[2021-03-06] MEDS ORDERED: fentaNYL CITRATE 100 MCG/2 ML VL ONE (11:43)
[2021-03-06] MEDS ORDERED: LIDOCAINE HCL 2% TOP JELLY 5ML TOP ONE (11:47)
[2021-03-06] MEDS ORDERED: LIDOCAINE 2% (LOCAL ANESTH.) PF 5ml SDV ONE (12:45)
[2021-03-06] MEDS ORDERED: GLYCOPYRROLATE 0.2 MG/ML 1ML VIAL ONE (13:20)
[2021-03-06] MEDS ORDERED: NEOSTIGMINE 1 MG/ML INJ (10mg/10ML VIAL) ONE (13:20)
[2021-03-06] MEDS ORDERED: POVIDONE IODINE 10 % TOPICAL OINT 30GM TOP ONE (13:31)
[2021-03-06] MEDS ORDERED: HYDROmorphone HCL 2 MG/ML VL ONE (14:09)
[2021-03-06] MEDS ORDERED: LABETALOL HCL 5 MG/ML 4ML SYRINGE IV ONE (14:14)
[2021-03-06] MEDS ORDERED: LABETALOL HCL 5 MG/ML 4ML SYRINGE IV PRN ×2 (14:15→14:45)
[2021-03-06] MEDS ORDERED: HYDROmorphone HCL 2 MG/ML VL IV PRN ×3 (14:30→14:45)
[2021-03-06] MEDS ORDERED: ONDANSETRON HCL 4 MG/2 ML VIAL IV PRN (14:45)
[2021-03-06] MEDS ORDERED: AMLO-489 PO (15:24)
[2021-03-06] MEDS ORDERED: SEVE800T PO (15:24)
[2021-03-06 20:00] VITALS: BP 103/69
[2021-03-06] MEDS ORDERED: hydrALAZINE HCL 25 MG TAB PO SCH (22:00)
[2021-03-06] MEDS: APIXABAN 2.5 MG TAB PO SCH (22:00)
[2021-03-06] MEDS: CARVEDILOL 3.125 MG TAB PO SCH (23:58)
[2021-03-07] VITALS (18 sets, daily range): BP systolic 102–156; BP diastolic 49–78
[2021-03-07] MEDS ORDERED: DIGOXIN (250MCG/ML) 2 ML AMPULE IV STA (00:59)
[2021-03-07] MEDS ORDERED: DIGOXIN (250MCG/ML) 2 ML AMPULE ONE (01:13)
[2021-03-07] MEDS: SODIUM CHLORIDE 0.9% 1,000 ML IV SCH ×3 (02:08→19:44)
[2021-03-07 02:14] LABS: Basophils # (auto) 0 10 ^3/uL (0-0.2); Basophils % (auto) 0.1 % (0.0-2.0); Calcium 6.5 mg/dL (8.5-10.1); Eosinophils # (auto) 0 10 ^3/uL (0-0.8); Hematocrit 21.6 % (41.0-53.0); Lymphocytes # (auto) 0.2 10 ^3/uL (0.4-5.4); Lymphocytes % (auto) 1.1 % (10.0-50.0); Magnesium 2.4 mg/dL (1.6-2.6); Mean Corpuscular Hgb Conc. 31.5 g/dL (32.0-36.0); Mean Corpuscular Volume 91.9 fL (80.0-100.0); Monocytes % (auto) 6.2 % (0.0-12.0); Neutrophils # (auto) 14.9 10 ^3/uL (1.6-8.6); Neutrophils % (auto) 92.6 % (37.0-80.0); Platelet Count (auto) 286 10^3/uL (140-450); Potassium 5.2 mmol/L (3.5-5.1); Red Blood Cells 2.35 10^6/uL (4.5-5.90); Red Cell Distribution Width 18.4 % (11.8-14.3); White Blood Cell 16.1 10^3/uL (4.4-10.8)
[2021-03-07 02:16] LABS: BUN/Creatinine Ratio 13.6
[2021-03-07 02:22] LABS: Hemoglobin 6.8 g/dL (13.5-17.5)
[2021-03-07] MEDS: metroNIDAZOLE 500MG/100ML 100 ML IV SCH ×3 (05:21→22:29)
[2021-03-07] MEDS: PIPERACILLIN-TAZOB 2.25GM 50 ML IV SCH ×3 (06:28→22:29)
[2021-03-07] MEDS: SODIUM CHLOR 0.9% PF (SALINE LOCK) 10ML VIAL/SYR IV SCH ×3 (06:28→22:32)
[2021-03-07] MEDS: MORPHINE SULFATE 4 MG/ML SYR/VIAL IV PRN ×2 (09:16→14:55)
[2021-03-07] MEDS: cefTRIAXone 1GM/50ML D5W 50 ML IV SCH (09:17)
[2021-03-07] MEDS: APIXABAN 2.5 MG TAB PO SCH ×2 (10:00→22:00)
[2021-03-07] MEDS: HEPARIN SODIUM (PORCINE) 5000 UNITS/ML 1ML VIAL SC SCH (10:00)
[2021-03-07] MEDS ORDERED: amLODIPine BESYLATE 5 MG TAB PO SCH (10:00)
[2021-03-07] MEDS ORDERED: FUROSEMIDE 20 MG/2 ML VIAL IV ONE ×2 (10:45)
[2021-03-07] MEDS: FAMOTIDINE (10MG/ML) 2ML VL IV SCH (10:59)
[2021-03-07] MEDS: FUROSEMIDE 20 MG TAB PO SCH (11:00)
[2021-03-07] MEDS: CARVEDILOL 3.125 MG TAB PO SCH ×2 (11:00→22:31)
[2021-03-07 14:31] LABS: Basophils # (auto) 0.1 10 ^3/uL (0-0.2); Eosinophils # (auto) 0 10 ^3/uL (0-0.8); Hemoglobin 7.8 g/dL (13.5-17.5); Lymphocytes # (auto) 0.3 10 ^3/uL (0.4-5.4); Monocytes % (auto) 9.5 % (0.0-12.0)
[2021-03-07 14:33] LABS: Basophils % (auto) 0.7 % (0.0-2.0); Hematocrit 22.7 % (41.0-53.0); Lymphocytes % (auto) 3.3 % (10.0-50.0); Mean Corpuscular Hemoglobin 31.6 pg (28.0-32.0); Mean Corpuscular Hgb Conc. 34.3 g/dL (32.0-36.0); Mean Corpuscular Volume 92.2 fL (80.0-100.0); Neutrophils # (auto) 8.8 10 ^3/uL (1.6-8.6); Neutrophils % (auto) 86.5 % (37.0-80.0); Platelet Count (auto) 204 10^3/uL (140-450); Red Blood Cells 2.47 10^6/uL (4.5-5.90); Red Cell Distribution Width 15.9 % (11.8-14.3); White Blood Cell 10.2 10^3/uL (4.4-10.8)
[2021-03-07 14:49] LABS: Albumin 1.7 g/dL (3.4-5.0); Calcium 6.4 mg/dL (8.5-10.1)
[2021-03-07 14:52] LABS: BUN/Creatinine Ratio 15.2; Bilirubin, Total 0.3 mg/dL (0.2-1.0); Total Protein 5.1 g/dL (6.4-8.2)
[2021-03-07 14:59] LABS: INR 1.27 (0.9-1.15); Partial Thromboplastin Time 34.3 sec (23.0-31.2)
[2021-03-07 15:09] LABS: Potassium 5.9 mmol/L (3.5-5.1)
[2021-03-07] MEDS ORDERED: DEXTROSE (50%) 50ML SYRG IV ONE ×2 (16:15→16:30)
[2021-03-07] MEDS ORDERED: InsuLIN REG 1unit/0.01ml Soln (100units/ml) IV ONE ×2 (16:15→16:30)
[2021-03-07] MEDS ORDERED: CALCIUM GLUC 1,000mg/50ml-NS 50 ML IV ONE (16:30)
[2021-03-07] MEDS ORDERED: ALBUTEROL SULF 2.5 MG/0.5ML(0.5%) NEB SOLN NEB ONE (16:30)
[2021-03-07 21:44] LABS: Calcium 6.6 mg/dL (8.5-10.1); Potassium 5.5 mmol/L (3.5-5.1)
[2021-03-08] VITALS (10 sets, daily range): BP systolic 134–155; BP diastolic 69–80
[2021-03-08] MEDS: MORPHINE SULFATE 4 MG/ML SYR/VIAL IV PRN (01:36)
[2021-03-08] MEDS: metroNIDAZOLE 500MG/100ML 100 ML IV SCH ×3 (05:29→22:06)
[2021-03-08] MEDS: SODIUM CHLOR 0.9% PF (SALINE LOCK) 10ML VIAL/SYR IV SCH ×3 (06:18→22:06)
[2021-03-08] MEDS: PIPERACILLIN-TAZOB 2.25GM 50 ML IV SCH ×2 (06:18→14:00)
[2021-03-08 07:12] LABS: Basophils # (auto) 0.1 10 ^3/uL (0-0.2); Eosinophils # (auto) 0 10 ^3/uL (0-0.8); Eosinophils % (auto) 0.2 % (0.0-7.0); Lymphocytes # (auto) 0.3 10 ^3/uL (0.4-5.4); Monocytes # (auto) 0.8 10 ^3/uL (0-1.3); Nucleated Red Blood Cells % 0.1 %; White Blood Cell 9.8 10^3/uL (4.4-10.8)
[2021-03-08 07:16] LABS: Hematocrit 19.8 % (41.0-53.0); Lymphocytes % (auto) 3.1 % (10.0-50.0); Mean Corpuscular Hemoglobin 31.6 pg (28.0-32.0); Mean Corpuscular Hgb Conc. 34.2 g/dL (32.0-36.0); Mean Corpuscular Volume 92.6 fL (80.0-100.0); Monocytes % (auto) 8.6 % (0.0-12.0); Neutrophils # (auto) 8.5 10 ^3/uL (1.6-8.6); Neutrophils % (auto) 87.1 % (37.0-80.0); Platelet Count (auto) 166 10^3/uL (140-450); Red Blood Cells 2.14 10^6/uL (4.5-5.90)
[2021-03-08 07:19] LABS: Hemoglobin 6.8 g/dL (13.5-17.5)
[2021-03-08 07:40] LABS: Potassium 5.5 mmol/L (3.5-5.1)
[2021-03-08 07:43] LABS: Albumin 1.7 g/dL (3.4-5.0); BUN/Creatinine Ratio 14.9; Calcium 6.6 mg/dL (8.5-10.1)
[2021-03-08 07:46] LABS: Bilirubin, Total 0.3 mg/dL (0.2-1.0); Total Protein 5.1 g/dL (6.4-8.2)
[2021-03-08] MEDS: APIXABAN 2.5 MG TAB PO SCH ×2 (10:23→22:00)
[2021-03-08] MEDS: CARVEDILOL 3.125 MG TAB PO SCH ×2 (10:23→22:00)
[2021-03-08] MEDS: FUROSEMIDE 20 MG TAB PO SCH (10:24)
[2021-03-08] MEDS: SODIUM BICARBONATE 50ML VIAL 75 ML in SOD CHL 0.45% 1,000 ML IV SCH ×2 (10:25→22:08)
[2021-03-08] MEDS ORDERED: FUROSEMIDE 20 MG/2 ML VIAL IV ONE ×2 (12:45)
[2021-03-08] MEDS ORDERED: TPN PER PHARMACY 0 ML IV SCH (12:45)
[2021-03-08 14:49] LABS: Magnesium 2.7 mg/dL (1.6-2.6)
[2021-03-08] MEDS ORDERED: CALCIUM GLUC 1,000mg/50ml-NS 50 ML IV ONE (15:00)
[2021-03-08] MEDS ORDERED: HEPARIN SODIUM (PORCINE) 5000 UNITS/ML 1ML VIAL ONE (19:52)
[2021-03-08] MEDS ORDERED: AMINO ACID INFUSION IN D10W 1,000 ML IV NR (20:00)
[2021-03-08] MEDS ORDERED: METOPROLOL TARTRATE 1MG/1ML-5ML VIAL IV ONE (21:45)
[2021-03-08] MEDS: LORazepam 2MG/ML-1ML VIAL IV PRN (21:58)
[2021-03-08 22:46] LABS: BUN/Creatinine Ratio 12.4; Calcium 6.7 mg/dL (8.5-10.1)
[2021-03-09] VITALS (10 sets, daily range): BP systolic 121–183; BP diastolic 59–84
[2021-03-09] MEDS ORDERED: DEXTROSE (50%) 50ML SYRG IV SCH
[2021-03-09] MEDS: PIPERACILLIN-TAZOB 2.25GM 50 ML IV SCH ×4 (00:58→22:46)
[2021-03-09] MEDS: LORazepam 2MG/ML-1ML VIAL IV PRN ×2 (03:57→21:34)
[2021-03-09] MEDS: SODIUM CHLOR 0.9% PF (SALINE LOCK) 10ML VIAL/SYR IV SCH ×3 (05:29→21:17)
[2021-03-09] MEDS: metroNIDAZOLE 500MG/100ML 100 ML IV SCH ×3 (05:29→21:17)
[2021-03-09] MEDS: ACCU-CHEK COMFORT CURVE STRIP VI SCH ×5 (06:00→23:42)
[2021-03-09] MEDS: InsuLIN REG 1unit/0.01ml Soln (100units/ml) SC SCH ×5 (06:00→23:42)
[2021-03-09 06:11] LABS: Basophils # (auto) 0 10 ^3/uL (0-0.2); Basophils % (auto) 0.6 % (0.0-2.0); Eosinophils # (auto) 0.1 10 ^3/uL (0-0.8); Eosinophils % (auto) 1.4 % (0.0-7.0); Hematocrit 19.6 % (41.0-53.0); Hemoglobin 7.1 g/dL (13.5-17.5); Lymphocytes # (auto) 0.5 10 ^3/uL (0.4-5.4); Lymphocytes % (auto) 6.6 % (10.0-50.0); Mean Corpuscular Hemoglobin 32.2 pg (28.0-32.0); Mean Corpuscular Volume 89.5 fL (80.0-100.0); Monocytes # (auto) 0.9 10 ^3/uL (0-1.3); Neutrophils # (auto) 5.6 10 ^3/uL (1.6-8.6); Neutrophils % (auto) 78.4 % (37.0-80.0); Nucleated Red Blood Cells % 0.1 %; Platelet Count (auto) 117 10^3/uL (140-450); Red Blood Cells 2.19 10^6/uL (4.5-5.90); Red Cell Distribution Width 15.7 % (11.8-14.3); White Blood Cell 7.2 10^3/uL (4.4-10.8)
[2021-03-09 06:33] LABS: Albumin 1.6 g/dL (3.4-5.0); Calcium 6.6 mg/dL (8.5-10.1); Magnesium 2.2 mg/dL (1.6-2.6); Potassium 3.9 mmol/L (3.5-5.1)
[2021-03-09 06:40] LABS: BUN/Creatinine Ratio 13.7; Bilirubin, Total 0.4 mg/dL (0.2-1.0); Phosphorus 3.4 mg/dL (2.5-4.90); Pre Albumin 10.6 mg/dL (20.0-40.0); Total Protein 4.7 g/dL (6.4-8.2)
[2021-03-09] MEDS ORDERED: SODIUM CHL 0.9% 1000 ML BAG XX ONE (07:00)
[2021-03-09] MEDS: CARVEDILOL 3.125 MG TAB PO SCH ×2 (10:13→21:35)
[2021-03-09] MEDS: FUROSEMIDE 20 MG TAB PO SCH (10:13)
[2021-03-09] MEDS: APIXABAN 2.5 MG TAB PO SCH ×2 (10:13→21:37)
[2021-03-09] MEDS: FAMOTIDINE (10MG/ML) 2ML VL IV SCH (10:14)
[2021-03-09] MEDS: MORPHINE SULFATE 4 MG/ML SYR/VIAL IV PRN (10:15)
[2021-03-09] MEDS: SODIUM BICARBONATE 50ML VIAL 75 ML in SOD CHL 0.45% 1,000 ML IV SCH (12:25)
[2021-03-09 12:36] LABS: Hepatitis A Ab IgM Negative; Hepatitis B Core IgM Negative; Hepatitis B Surface Antigen Negative (Negative); Hepatitis C Antibody Negative (Negative)
[2021-03-09] MEDS: hydrALAZINE HCL 20 MG/ML VL IV PRN (17:38)
[2021-03-09] MEDS ORDERED: PPN PER PHARMACY IV NR ×8 (20:00)
[2021-03-09] MEDS ORDERED: EPOETIN ALFA-EPBX 10,000 UNIT/1ML VIAL SC ONE (21:00)
[2021-03-10] VITALS (7 sets, daily range): BP systolic 155–182; BP diastolic 76–92
[2021-03-10] MEDS: MORPHINE SULFATE 4 MG/ML SYR/VIAL IV PRN (00:43)
[2021-03-10] MEDS: hydrALAZINE HCL 20 MG/ML VL IV PRN (00:58)
[2021-03-10] MEDS: metroNIDAZOLE 500MG/100ML 100 ML IV SCH ×3 (05:20→21:54)
[2021-03-10] MEDS: SODIUM CHLOR 0.9% PF (SALINE LOCK) 10ML VIAL/SYR IV SCH ×3 (05:20→22:12)
[2021-03-10] MEDS: InsuLIN REG 1unit/0.01ml Soln (100units/ml) SC SCH ×4 (06:00→23:52)
[2021-03-10] MEDS: ACCU-CHEK COMFORT CURVE STRIP VI SCH ×4 (06:06→23:52)
[2021-03-10] MEDS: PIPERACILLIN-TAZOB 2.25GM 50 ML IV SCH ×3 (06:24→23:04)
[2021-03-10 06:40] LABS: Basophils # (auto) 0 10 ^3/uL (0-0.2); Basophils % (auto) 0.5 % (0.0-2.0); Eosinophils # (auto) 0.1 10 ^3/uL (0-0.8); Eosinophils % (auto) 2.3 % (0.0-7.0); Hematocrit 23.8 % (41.0-53.0); Hemoglobin 7.8 g/dL (13.5-17.5); Lymphocytes # (auto) 0.4 10 ^3/uL (0.4-5.4); Lymphocytes % (auto) 6.7 % (10.0-50.0); Mean Corpuscular Hemoglobin 30.2 pg (28.0-32.0); Mean Corpuscular Hgb Conc. 32.6 g/dL (32.0-36.0); Mean Corpuscular Volume 92.7 fL (80.0-100.0); Monocytes % (auto) 15.4 % (0.0-12.0); Neutrophils # (auto) 4.7 10 ^3/uL (1.6-8.6); Neutrophils % (auto) 75.1 % (37.0-80.0); Nucleated Red Blood Cells % 0.2 %; Platelet Count (auto) 150 10^3/uL (140-450); Red Blood Cells 2.57 10^6/uL (4.5-5.90); Red Cell Distribution Width 15.9 % (11.8-14.3); White Blood Cell 6.2 10^3/uL (4.4-10.8)
[2021-03-10 06:55] LABS: Albumin 1.7 g/dL (3.4-5.0); Calcium 6.6 mg/dL (8.5-10.1); Magnesium 2.4 mg/dL (1.6-2.6); Potassium 3.4 mmol/L (3.5-5.1)
[2021-03-10 06:59] LABS: BUN/Creatinine Ratio 14.3; Bilirubin, Total 0.4 mg/dL (0.2-1.0); Phosphorus 3.2 mg/dL (2.5-4.90); Total Protein 4.8 g/dL (6.4-8.2)
[2021-03-10] MEDS ORDERED: SODIUM CHL 0.9% 1000 ML BAG XX ONE (07:00)
[2021-03-10] MEDS ORDERED: CALCIUM GLUC 1,000mg/50ml-NS 50 ML IV ONE (12:00)
[2021-03-10] MEDS: CARVEDILOL 3.125 MG TAB PO SCH ×2 (12:21→22:12)
[2021-03-10] MEDS: APIXABAN 2.5 MG TAB PO SCH ×2 (12:21→22:13)
[2021-03-10] MEDS: FUROSEMIDE 20 MG TAB PO SCH (12:22)
[2021-03-10] MEDS ORDERED: POTASSIUM CHL 20MEQ/100ML 100 ML IV ONE (13:00)
[2021-03-10] MEDS ORDERED: PPN PER PHARMACY IV NR ×8 (20:00)
[2021-03-10] MEDS ORDERED: EPOETIN ALFA-EPBX 10,000 UNIT/1ML VIAL SC ONE (21:00)
[2021-03-11] VITALS (10 sets, daily range): BP systolic 144–159; BP diastolic 64–81
[2021-03-11] MEDS: metroNIDAZOLE 500MG/100ML 100 ML IV SCH ×3 (05:29→22:37)
[2021-03-11] MEDS: SODIUM CHLOR 0.9% PF (SALINE LOCK) 10ML VIAL/SYR IV SCH ×3 (05:29→22:37)
[2021-03-11] MEDS: InsuLIN REG 1unit/0.01ml Soln (100units/ml) SC SCH ×3 (06:00→18:00)
[2021-03-11] MEDS: ACCU-CHEK COMFORT CURVE STRIP VI SCH ×3 (06:34→18:05)
[2021-03-11] MEDS: PIPERACILLIN-TAZOB 2.25GM 50 ML IV SCH ×3 (06:34→22:37)
[2021-03-11 07:14] LABS: Basophils # (auto) 0 10 ^3/uL (0-0.2); Eosinophils # (auto) 0.2 10 ^3/uL (0-0.8); Lymphocytes # (auto) 0.5 10 ^3/uL (0.4-5.4); Mean Corpuscular Volume 91.8 fL (80.0-100.0); Monocytes # (auto) 1.4 10 ^3/uL (0-1.3); Neutrophils # (auto) 5.7 10 ^3/uL (1.6-8.6); Nucleated Red Blood Cells % 0.1 %; White Blood Cell 7.8 10^3/uL (4.4-10.8)
[2021-03-11 07:16] LABS: Basophils % (auto) 0.5 % (0.0-2.0); Eosinophils % (auto) 2.2 % (0.0-7.0); Hematocrit 19.8 % (41.0-53.0); Lymphocytes % (auto) 6.4 % (10.0-50.0); Mean Corpuscular Hemoglobin 31.3 pg (28.0-32.0); Mean Corpuscular Hgb Conc. 34.1 g/dL (32.0-36.0); Monocytes % (auto) 17.7 % (0.0-12.0); Neutrophils % (auto) 73.2 % (37.0-80.0); Platelet Count (auto) 126 10^3/uL (140-450); Red Blood Cells 2.16 10^6/uL (4.5-5.90); Red Cell Distribution Width 15.9 % (11.8-14.3)
[2021-03-11 07:31] LABS: Albumin 1.6 g/dL (3.4-5.0); Calcium 6.9 mg/dL (8.5-10.1); Magnesium 2.1 mg/dL (1.6-2.6)
[2021-03-11 07:34] LABS: BUN/Creatinine Ratio 12.1; Bilirubin, Total 0.4 mg/dL (0.2-1.0); Phosphorus 2.3 mg/dL (2.5-4.90); Total Protein 4.6 g/dL (6.4-8.2)
[2021-03-11 07:36] LABS: Hemoglobin 6.7 g/dL (13.5-17.5)
[2021-03-11] MEDS: APIXABAN 2.5 MG TAB PO SCH ×2 (10:00→22:00)
[2021-03-11] MEDS ORDERED: POTASSIUM CHL 20MEQ/100ML 100 ML IV ONE (10:00)
[2021-03-11] MEDS: FAMOTIDINE (10MG/ML) 2ML VL IV SCH (11:53)
[2021-03-11] MEDS: FUROSEMIDE 20 MG TAB PO SCH (11:54)
[2021-03-11] MEDS: CARVEDILOL 3.125 MG TAB PO SCH ×2 (11:54→22:37)
[2021-03-11] MEDS ORDERED: POTASSIUM PHOSP 22MEQ(15MMOLE) in NS 100 ML IV ONE (12:00)
[2021-03-11] MEDS: hydrALAZINE HCL 20 MG/ML VL IV PRN (18:29)
[2021-03-11 19:10] LABS: Basophils # (auto) 0.1 10 ^3/uL (0-0.2); Hematocrit 23.8 % (41.0-53.0); Hemoglobin 8.4 g/dL (13.5-17.5); Lymphocytes # (auto) 0.6 10 ^3/uL (0.4-5.4); Mean Corpuscular Hgb Conc. 35.1 g/dL (32.0-36.0); Monocytes # (auto) 1.3 10 ^3/uL (0-1.3); Red Blood Cells 2.64 10^6/uL (4.5-5.90)
[2021-03-11 19:14] LABS: Hematocrit 23.7 % (41.0-53.0); Hemoglobin 8.3 g/dL (13.5-17.5)
[2021-03-11 19:15] LABS: Basophils % (auto) 0.8 % (0.0-2.0); Eosinophils # (auto) 0.3 10 ^3/uL (0-0.8); Eosinophils % (auto) 3.3 % (0.0-7.0); Lymphocytes % (auto) 8.1 % (10.0-50.0); Mean Corpuscular Hemoglobin 31.6 pg (28.0-32.0); Monocytes % (auto) 16.7 % (0.0-12.0); Neutrophils # (auto) 5.4 10 ^3/uL (1.6-8.6); Neutrophils % (auto) 71.1 % (37.0-80.0); Nucleated Red Blood Cells % 0.2 %; Platelet Count (auto) 152 10^3/uL (140-450); Red Cell Distribution Width 15.5 % (11.8-14.3); White Blood Cell 7.6 10^3/uL (4.4-10.8)
[2021-03-11] MEDS ORDERED: PPN PER PHARMACY IV NR ×8 (20:00)
[2021-03-12] MEDS: InsuLIN REG 1unit/0.01ml Soln (100units/ml) SC SCH
[2021-03-12] MEDS: ACCU-CHEK COMFORT CURVE STRIP VI SCH (00:22)
[2021-03-12] MEDS: metroNIDAZOLE 500MG/100ML 100 ML IV SCH ×3 (06:01→21:47)
[2021-03-12] MEDS: SODIUM CHLOR 0.9% PF (SALINE LOCK) 10ML VIAL/SYR IV SCH ×3 (06:01→21:47)
[2021-03-12] MEDS: PIPERACILLIN-TAZOB 2.25GM 50 ML IV SCH ×3 (06:02→21:47)
[2021-03-12] MEDS: hydrALAZINE HCL 20 MG/ML VL IV PRN (06:29)
[2021-03-12 06:30] VITALS: BP 164/75
[2021-03-12 06:45] LABS: Basophils # (auto) 0.1 10 ^3/uL (0-0.2); Eosinophils # (auto) 0.3 10 ^3/uL (0-0.8); Nucleated Red Blood Cells % 0.1 %; White Blood Cell 8.4 10^3/uL (4.4-10.8)
[2021-03-12 06:48] LABS: Basophils % (auto) 0.8 % (0.0-2.0); Eosinophils % (auto) 3.3 % (0.0-7.0); Hematocrit 23.6 % (41.0-53.0); Hemoglobin 8.6 g/dL (13.5-17.5); Lymphocytes # (auto) 0.7 10 ^3/uL (0.4-5.4); Lymphocytes % (auto) 8.7 % (10.0-50.0); Mean Corpuscular Hemoglobin 33.1 pg (28.0-32.0); Mean Corpuscular Hgb Conc. 36.6 g/dL (32.0-36.0); Mean Corpuscular Volume 90.6 fL (80.0-100.0); Monocytes # (auto) 1.4 10 ^3/uL (0-1.3); Monocytes % (auto) 16.3 % (0.0-12.0); Neutrophils # (auto) 5.9 10 ^3/uL (1.6-8.6); Neutrophils % (auto) 70.9 % (37.0-80.0); Platelet Count (auto) 160 10^3/uL (140-450); Red Cell Distribution Width 15.5 % (11.8-14.3)
[2021-03-12 07:02] LABS: Albumin 1.6 g/dL (3.4-5.0); Magnesium 2.1 mg/dL (1.6-2.6); Potassium 3.3 mmol/L (3.5-5.1)
[2021-03-12 07:07] LABS: Bilirubin, Total 0.5 mg/dL (0.2-1.0); Calcium 6.9 mg/dL (8.5-10.1); Phosphorus 3.4 mg/dL (2.5-4.90); Total Protein 4.8 g/dL (6.4-8.2)
[2021-03-12 09:00] VITALS: BP 153/66
[2021-03-12] MEDS ORDERED: SODIUM CHL 0.9% 1000 ML BAG XX ONE (09:30)
[2021-03-12] MEDS: FUROSEMIDE 20 MG TAB PO SCH (09:52)
[2021-03-12] MEDS: CARVEDILOL 3.125 MG TAB PO SCH ×2 (09:52→22:03)
[2021-03-12] MEDS: APIXABAN 2.5 MG TAB PO SCH ×2 (10:00→21:48)
[2021-03-12 13:00] VITALS: BP 137/64
[2021-03-12] MEDS: HYDROcodone-ACET 5/325MG TAB PO PRN (16:41)
[2021-03-12 17:47] VITALS: BP 147/76
[2021-03-12 20:00] VITALS: BP 148/69
[2021-03-12] MEDS ORDERED: EPOETIN ALFA-EPBX 10,000 UNIT/1ML VIAL SC ONE (21:00)
[2021-03-12 22:00] VITALS: BP 148/69
[2021-03-13 05:00] VITALS: BP 155/75
[2021-03-13] MEDS: metroNIDAZOLE 500MG/100ML 100 ML IV SCH ×3 (05:39→22:48)
[2021-03-13] MEDS: SODIUM CHLOR 0.9% PF (SALINE LOCK) 10ML VIAL/SYR IV SCH ×3 (05:39→22:00)
[2021-03-13] MEDS: PIPERACILLIN-TAZOB 2.25GM 50 ML IV SCH ×3 (05:40→22:48)
[2021-03-13 08:00] VITALS: BP 110/49
[2021-03-13 09:00] VITALS: BP 110/49
[2021-03-13] MEDS: APIXABAN 2.5 MG TAB PO SCH ×2 (09:34→22:49)
[2021-03-13] MEDS: FAMOTIDINE (10MG/ML) 2ML VL IV SCH (09:34)
[2021-03-13] MEDS: CARVEDILOL 3.125 MG TAB PO SCH ×2 (09:35→22:48)
[2021-03-13] MEDS: FUROSEMIDE 20 MG TAB PO SCH (09:35)
[2021-03-13 13:00] VITALS: BP 147/71
[2021-03-13 17:00] VITALS: BP 149/72
[2021-03-13] MEDS: D5W/LACTATED RINGERS 1,000 ML IV SCH (17:00)
[2021-03-13] MEDS: VANCOMYCIN HCL 125MG/5ML ORAL SOL PO SCH ×2 (18:36→22:49)
[2021-03-13 19:16] LABS: Basophils # (auto) 0.1 10 ^3/uL (0-0.2); Eosinophils # (auto) 0.2 10 ^3/uL (0-0.8); Hemoglobin 8.4 g/dL (13.5-17.5); Lymphocytes # (auto) 0.7 10 ^3/uL (0.4-5.4); White Blood Cell 8.3 10^3/uL (4.4-10.8)
[2021-03-13 19:18] LABS: Basophils % (auto) 1.2 % (0.0-2.0); Hematocrit 25.4 % (41.0-53.0); Lymphocytes % (auto) 8.2 % (10.0-50.0); Mean Corpuscular Hemoglobin 30.1 pg (28.0-32.0); Mean Corpuscular Hgb Conc. 33.1 g/dL (32.0-36.0); Mean Corpuscular Volume 90.8 fL (80.0-100.0); Monocytes # (auto) 1.3 10 ^3/uL (0-1.3); Monocytes % (auto) 15.7 % (0.0-12.0); Neutrophils # (auto) 5.9 10 ^3/uL (1.6-8.6); Neutrophils % (auto) 71.9 % (37.0-80.0); Nucleated Red Blood Cells % 0.2 %; Platelet Count (auto) 178 10^3/uL (140-450); Red Blood Cells 2.79 10^6/uL (4.5-5.90); Red Cell Distribution Width 15.4 % (11.8-14.3)
[2021-03-13 19:33] LABS: Albumin 1.7 g/dL (3.4-5.0); BUN/Creatinine Ratio 11.5; Calcium 6.7 mg/dL (8.5-10.1); Potassium 3.5 mmol/L (3.5-5.1)
[2021-03-13 19:35] LABS: Bilirubin, Total 0.4 mg/dL (0.2-1.0)
[2021-03-14] MEDS: PIPERACILLIN-TAZOB 2.25GM 50 ML IV SCH ×2 (05:38→13:21)
[2021-03-14] MEDS: metroNIDAZOLE 500MG/100ML 100 ML IV SCH ×3 (05:38→22:14)
[2021-03-14] MEDS: SODIUM CHLOR 0.9% PF (SALINE LOCK) 10ML VIAL/SYR IV SCH ×3 (05:38→22:14)
[2021-03-14] MEDS: VANCOMYCIN HCL 125MG/5ML ORAL SOL PO SCH ×4 (05:38→22:14)
[2021-03-14] MEDS: D5W/LACTATED RINGERS 1,000 ML IV SCH (05:39)
[2021-03-14 09:00] VITALS: BP 145/56
[2021-03-14] MEDS: FUROSEMIDE 20 MG TAB PO SCH (09:36)
[2021-03-14] MEDS: CARVEDILOL 3.125 MG TAB PO SCH ×2 (09:36→22:26)
[2021-03-14] MEDS: APIXABAN 2.5 MG TAB PO SCH ×2 (09:36→22:14)
[2021-03-14 13:00] VITALS: BP 166/75
[2021-03-14] MEDS: hydrALAZINE HCL 20 MG/ML VL IV PRN (13:20)
[2021-03-14] MEDS: HYDROcodone-ACET 5/325MG TAB PO PRN (13:24)
[2021-03-14] MEDS ORDERED: D5W/LACTATED RINGERS 1,000 ML IV SCH (19:00)
[2021-03-15] MEDS: hydrALAZINE HCL 20 MG/ML VL IV PRN (04:54)
[2021-03-15] MEDS: MORPHINE SULFATE 4 MG/ML SYR/VIAL IV PRN (04:54)
[2021-03-15] MEDS: metroNIDAZOLE 500MG/100ML 100 ML IV SCH ×3 (05:52→22:30)
[2021-03-15] MEDS: VANCOMYCIN HCL 125MG/5ML ORAL SOL PO SCH ×4 (05:52→22:30)
[2021-03-15] MEDS: SODIUM CHLOR 0.9% PF (SALINE LOCK) 10ML VIAL/SYR IV SCH ×3 (05:52→22:00)
[2021-03-15 06:41] LABS: Basophils # (auto) 0.1 10 ^3/uL (0-0.2); Eosinophils # (auto) 0.2 10 ^3/uL (0-0.8); Hemoglobin 8.3 g/dL (13.5-17.5); Mean Corpuscular Volume 90.2 fL (80.0-100.0); Monocytes # (auto) 0.9 10 ^3/uL (0-1.3); Neutrophils # (auto) 7.8 10 ^3/uL (1.6-8.6); Nucleated Red Blood Cells % 0.1 %; Red Blood Cells 2.71 10^6/uL (4.5-5.90); Red Cell Distribution Width 16.2 % (11.8-14.3)
[2021-03-15 06:43] LABS: Hematocrit 24.4 % (41.0-53.0); Lymphocytes # (auto) 0.6 10 ^3/uL (0.4-5.4); Lymphocytes % (auto) 6.4 % (10.0-50.0); Mean Corpuscular Hemoglobin 30.6 pg (28.0-32.0); Mean Corpuscular Hgb Conc. 33.9 g/dL (32.0-36.0); Monocytes % (auto) 9.7 % (0.0-12.0); Neutrophils % (auto) 80.9 % (37.0-80.0); Platelet Count (auto) 216 10^3/uL (140-450); White Blood Cell 9.6 10^3/uL (4.4-10.8)
[2021-03-15 07:04] LABS: Potassium 3.1 mmol/L (3.5-5.1)
[2021-03-15 07:10] LABS: Albumin 1.6 g/dL (3.4-5.0); BUN/Creatinine Ratio 12.2; Bilirubin, Total 0.3 mg/dL (0.2-1.0); Calcium 6.8 mg/dL (8.5-10.1); Total Protein 4.9 g/dL (6.4-8.2)
[2021-03-15 08:00] VITALS: BP 141/79
[2021-03-15 08:50] VITALS: BP 141/71
[2021-03-15] MEDS: FAMOTIDINE (10MG/ML) 2ML VL IV SCH (10:35)
[2021-03-15] MEDS: APIXABAN 2.5 MG TAB PO SCH ×2 (10:35→22:27)
[2021-03-15] MEDS: CARVEDILOL 3.125 MG TAB PO SCH ×2 (10:37→22:29)
[2021-03-15] MEDS: FUROSEMIDE 20 MG TAB PO SCH (10:37)
[2021-03-15 13:00] VITALS: BP 147/80
[2021-03-15 17:00] VITALS: BP 147/76
[2021-03-15] MEDS: HYDROcodone-ACET 5/325MG TAB PO PRN ×2 (17:54→22:28)
[2021-03-16 00:05] VITALS: BP 162/84
[2021-03-16] MEDS: D5W/SOD CHL 0.45%/KCL 20MEQ 1,000 ML IV SCH (02:05)
[2021-03-16] MEDS: hydrALAZINE HCL 25 MG TAB PO SCH ×4 (02:07→17:11)
[2021-03-16] MEDS: MORPHINE SULFATE 4 MG/ML SYR/VIAL IV PRN ×3 (03:08→22:43)
[2021-03-16 05:21] VITALS: BP 162/92
[2021-03-16] MEDS: metroNIDAZOLE 500MG/100ML 100 ML IV SCH ×3 (05:55→22:23)
[2021-03-16] MEDS: VANCOMYCIN HCL 125MG/5ML ORAL SOL PO SCH ×4 (05:57→22:00)
[2021-03-16] MEDS ORDERED: SODIUM CHL 0.9% 1000 ML BAG XX ONE (07:00)
[2021-03-16 08:43] VITALS: BP 133/74
[2021-03-16] MEDS: FUROSEMIDE 20 MG TAB PO SCH (10:40)
[2021-03-16] MEDS: APIXABAN 2.5 MG TAB PO SCH ×2 (10:41→22:24)
[2021-03-16] MEDS: CARVEDILOL 3.125 MG TAB PO SCH ×2 (10:41→22:24)
[2021-03-16 12:45] VITALS: BP 130/75
[2021-03-16] MEDS: SODIUM CHLOR 0.9% PF (SALINE LOCK) 10ML VIAL/SYR IV SCH ×3 (13:33→22:43)
[2021-03-16 17:00] VITALS: BP 156/73
[2021-03-16] MEDS ORDERED: EPOETIN ALFA-EPBX 10,000 UNIT/1ML VIAL SC ONE (21:00)
[2021-03-17] MEDS: hydrALAZINE HCL 25 MG TAB PO SCH ×5 (05:25→17:20)
[2021-03-17] MEDS: metroNIDAZOLE 500MG/100ML 100 ML IV SCH ×3 (05:26→22:14)
[2021-03-17] MEDS: D5W/SOD CHL 0.45%/KCL 20MEQ 1,000 ML IV SCH ×2 (05:27→13:15)
[2021-03-17] MEDS: VANCOMYCIN HCL 125MG/5ML ORAL SOL PO SCH ×5 (06:00→22:14)
[2021-03-17] MEDS: SODIUM CHLOR 0.9% PF (SALINE LOCK) 10ML VIAL/SYR IV SCH ×3 (06:00→22:14)
[2021-03-17 08:00] VITALS: BP 150/78
[2021-03-17] MEDS: FAMOTIDINE (10MG/ML) 2ML VL IV SCH (09:37)
[2021-03-17] MEDS: APIXABAN 2.5 MG TAB PO SCH ×2 (09:38→22:15)
[2021-03-17] MEDS: CARVEDILOL 3.125 MG TAB PO SCH ×2 (09:39→22:15)
[2021-03-17] MEDS: FUROSEMIDE 20 MG TAB PO SCH (09:40)
[2021-03-17] MEDS ORDERED: hydrALAZINE HCL 25 MG TAB PO SCH (10:45)
[2021-03-17] MEDS: LOSARTAN POTASSIUM 50 MG TAB PO SCH (10:45)
[2021-03-17] MEDS ORDERED: VANC125PO PO (11:31)
[2021-03-17] MEDS ORDERED: AMLO-489 PO (11:31)
[2021-03-17 13:00] VITALS: BP 145/66
[2021-03-17] MEDS: MORPHINE SULFATE 4 MG/ML SYR/VIAL IV PRN (13:53)
[2021-03-17 17:00] VITALS: BP 158/81
[2021-03-17] MEDS: HYDROcodone-ACET 5/325MG TAB PO PRN (17:21)
[2021-03-17 22:06] VITALS: BP 146/72
[2021-03-18] MEDS: hydrALAZINE HCL 25 MG TAB PO SCH ×3 (00:20→12:24)
[2021-03-18 04:40] VITALS: BP 145/79
[2021-03-18] MEDS: D5W/SOD CHL 0.45%/KCL 20MEQ 1,000 ML IV SCH ×2 (06:00)
[2021-03-18] MEDS: metroNIDAZOLE 500MG/100ML 100 ML IV SCH ×2 (06:13→14:28)
[2021-03-18] MEDS: SODIUM CHLOR 0.9% PF (SALINE LOCK) 10ML VIAL/SYR IV SCH ×2 (06:14→14:29)
[2021-03-18] MEDS: VANCOMYCIN HCL 125MG/5ML ORAL SOL PO SCH ×2 (06:14→12:24)
[2021-03-18] MEDS ORDERED: SODIUM CHL 0.9% 1000 ML BAG XX ONE (07:00)
[2021-03-18 07:26] LABS: Albumin 1.8 g/dL (3.4-5.0); Potassium 3.5 mmol/L (3.5-5.1)
[2021-03-18 07:31] LABS: BUN/Creatinine Ratio 9.2; Bilirubin, Total 0.4 mg/dL (0.2-1.0); Phosphorus 2.8 mg/dL (2.5-4.90); Total Protein 5.2 g/dL (6.4-8.2)
[2021-03-18] MEDS: CARVEDILOL 3.125 MG TAB PO SCH (10:26)
[2021-03-18] MEDS: APIXABAN 2.5 MG TAB PO SCH (10:27)
[2021-03-18] MEDS: LOSARTAN POTASSIUM 50 MG TAB PO SCH (10:27)
[2021-03-18] MEDS: HYDROcodone-ACET 5/325MG TAB PO PRN (10:27)
[2021-03-18] MEDS: LORazepam 2MG/ML-1ML VIAL IV PRN (11:43)
[2021-03-18 16:32] VITALS: BP 129/75
[2021-03-18 16:54] LABS: Hematocrit 27.1 % (41.0-53.0); Hemoglobin 8.9 g/dL (13.5-17.5)
[2021-03-18] MEDS ORDERED: EPOETIN ALFA-EPBX 10,000 UNIT/1ML VIAL SC ONE ×2 (21:00)
== END 2021-03-18 17:30 | disposition home health service (06) | DRG 853 ==
LOC: EDBD 18:41 → ER 18:41 → TELE-EAST 22:47 → ER 23:09
PROVIDERS: ADMIT Nurse Practitioner Family; ATTEND Specialist
PROC: 0W9G4ZZ Drainage of Peritoneal Cavity, Percutaneous Endoscopic Approach (ICD-10-PCS; 2021-03-06)
PROC: 0YQ50ZZ Repair Right Inguinal Region, Open Approach (ICD-10-PCS; 2021-03-06)
PROC: 0DTJ0ZZ Resection of Appendix, Open Approach (ICD-10-PCS; principal; 2021-03-06 11:27)
PROC: 30233K1 Transfusion of Nonautologous Frozen Plasma into Peripheral Vein, Percutaneous Approach (ICD-10-PCS; 2021-03-07)
PROC: 5A1D70Z Performance of Urinary Filtration, Intermittent, Less than 6 Hours Per Day (ICD-10-PCS; 2021-03-08)
PROC: 30233N1 Transfusion of Nonautologous Red Blood Cells into Peripheral Vein, Percutaneous Approach (ICD-10-PCS; 2021-03-08)
PROC: 5A1D70Z Performance of Urinary Filtration, Intermittent, Less than 6 Hours Per Day (ICD-10-PCS; 2021-03-09)
PROC: 5A1D70Z Performance of Urinary Filtration, Intermittent, Less than 6 Hours Per Day (ICD-10-PCS; 2021-03-12)
PROC: 5A1D70Z Performance of Urinary Filtration, Intermittent, Less than 6 Hours Per Day (ICD-10-PCS; 2021-03-16)
PROC: 5A1D70Z Performance of Urinary Filtration, Intermittent, Less than 6 Hours Per Day (ICD-10-PCS; 2021-03-17)
DX: A41.9 Sepsis, unspecified organism (principal); N18.6 End stage renal disease; N17.0 Acute kidney failure with tubular necrosis; K65.9 Peritonitis, unspecified; K65.1 Peritoneal abscess; G92 Toxic encephalopathy; K40.30 Unilateral inguinal hernia, with obstruction, without gangrene, not specified as recurrent; D62 Acute posthemorrhagic anemia; I47.1 Supraventricular tachycardia; E46 Unspecified protein-calorie malnutrition; A04.72 Enterocolitis due to Clostridium difficile, not specified as recurrent; I12.0 Hypertensive chronic kidney disease with stage 5 chronic kidney disease or end stage renal disease; D63.8 Anemia in other chronic diseases classified elsewhere; I71.4 Abdominal aortic aneurysm, without rupture; K80.20 Calculus of gallbladder without cholecystitis without obstruction; E86.1 Hypovolemia; E87.5 Hyperkalemia; D63.1 Anemia in chronic kidney disease; E87.6 Hypokalemia; B96.1 Klebsiella pneumoniae [K. pneumoniae] as the cause of diseases classified elsewhere; Z91.012 Allergy to eggs; Z68.20 Body mass index [BMI] 20.0-20.9, adult; Z20.822 Contact with and (suspected) exposure to COVID-19
CPT/HCPCS: 36415; 71045; 74176; 80048; 80053; 80074; 81001; 82040; 82150; 82270; 82306; 82962; 83690; 83735; 83880; 83970; 84100; 84478; 84484; 85014; 85018; 85025; 85048; 85384; 85610; 85730; 86850; 86900; 86901; 86920; 87045; 87070; 87075; 87077; 87081; 87186; 87205; 87426; 87427; 87493; 88302; 90935; 93005; 94640; 96365; 96366; 96375; 96376; 97110; 97116; 97530; G0378; J0330; J0696; J1100; J1642; J1815; J2001; J2405; J2543; J2704; J3480; J3490

== ENCOUNTER 2021-03-19 15:18 | Inpatient (IN) | payer MEDICARE, OTHER ==
[~2021-03-19] VITALS: Ht 167.6 cm; Wt 64.0 kg
[~2021-03-19 15:18] MED LIST changes: +AMLO-489 PO; -FER325T PO; -FURO20TA3 PO; -PANT40TA2 PO; +SEVE800T PO; +VANC125PO PO
[2021-03-19 16:10] LABS: Basophils # (auto) 0.1 10 ^3/uL (0-0.2); Basophils % (auto) 1.4 % (0.0-2.0); Eosinophils # (auto) 0.1 10 ^3/uL (0-0.8); Eosinophils % (auto) 1.2 % (0.0-7.0); Hemoglobin 9.3 g/dL (13.5-17.5); Lymphocytes # (auto) 0.7 10 ^3/uL (0.4-5.4); Lymphocytes % (auto) 7.2 % (10.0-50.0); Mean Corpuscular Hemoglobin 29.9 pg (28.0-32.0); Mean Corpuscular Hgb Conc. 33.3 g/dL (32.0-36.0); Mean Corpuscular Volume 89.9 fL (80.0-100.0); Monocytes # (auto) 1.3 10 ^3/uL (0-1.3); Monocytes % (auto) 12.4 % (0.0-12.0); Neutrophils # (auto) 7.8 10 ^3/uL (1.6-8.6); Neutrophils % (auto) 77.8 % (37.0-80.0); Nucleated Red Blood Cells % 0.1 %; Platelet Count (auto) 265 10^3/uL (140-450); Red Blood Cells 3.12 10^6/uL (4.5-5.90); Red Cell Distribution Width 16.8 % (11.8-14.3); White Blood Cell 10.1 10^3/uL (4.4-10.8)
[2021-03-19 16:27] LABS: Calcium 7.4 mg/dL (8.5-10.1); Magnesium 2.3 mg/dL (1.6-2.6); Potassium 3.9 mmol/L (3.5-5.1)
[2021-03-19 16:31] LABS: BUN/Creatinine Ratio 8.4; Bilirubin, Total 0.4 mg/dL (0.2-1.0); Total Protein 5.8 g/dL (6.4-8.2)
[2021-03-19] MEDS ORDERED: MORPHINE SULF INJ 2 MG/ML SYRINGE 1ML IV PRN (19:00)
[2021-03-19] MEDS ORDERED: NITROGLYCERIN 0.4 MG SL TAB SL PRN (19:00)
[2021-03-19] MEDS ORDERED: NITROGLYCERIN 0.4MG/DOSE SPRAY 4.9GM TL PRN (19:00)
[2021-03-19] MEDS ORDERED: SOD CHL 0.45% 1,000 ML IV ONE (19:15)
[2021-03-19] MEDS: CARVEDILOL 3.125 MG TAB PO SCH (22:00)
[2021-03-19] MEDS: hydrALAZINE HCL 25 MG TAB PO SCH (22:00)
[2021-03-19] MEDS: VANCOMYCIN HCL 125MG/5ML ORAL SOL PO SCH ×2 (22:00→23:30)
[2021-03-20] MEDS: BISMUTH SUBSALICYLATE 262 MG CHEW PO SCH ×4 (06:00→18:00)
[2021-03-20] MEDS: VANCOMYCIN HCL 125MG/5ML ORAL SOL PO SCH ×4 (06:49→21:24)
[2021-03-20] MEDS: hydrALAZINE HCL 25 MG TAB PO SCH ×3 (06:50→21:26)
[2021-03-20 07:26] LABS: Urine Bacteria FEW /hpf (None Seen); Urine Blood Negative /uL (Negative); Urine Specific Gravity 1.014 (1.001-1.035); Urine WBC 31 /hpf (0 - 3)
[2021-03-20 07:29] LABS: Protein, Urine 155.7 mg/dL (0.0-11.9); Sodium Urine 63 mmol/L (40-220)
[2021-03-20 07:33] LABS: Creatinine, Urine 129 mg/dL (30.0-125.0)
[2021-03-20] MEDS: SEVELAMER 800 MG TAB PO SCH ×3 (08:00→18:05)
[2021-03-20 08:36] LABS: Potassium 3.9 mmol/L (3.5-5.1)
[2021-03-20 08:41] LABS: Basophils # (auto) 0.1 10 ^3/uL (0-0.2); Basophils % (auto) 1.3 % (0.0-2.0); Eosinophils # (auto) 0.1 10 ^3/uL (0-0.8); Eosinophils % (auto) 1.1 % (0.0-7.0); Hematocrit 25.5 % (41.0-53.0); Hemoglobin 8.2 g/dL (13.5-17.5); Lymphocytes # (auto) 0.6 10 ^3/uL (0.4-5.4); Lymphocytes % (auto) 7.9 % (10.0-50.0); Mean Corpuscular Hgb Conc. 32.2 g/dL (32.0-36.0); Monocytes % (auto) 12.9 % (0.0-12.0); Neutrophils # (auto) 6.2 10 ^3/uL (1.6-8.6); Neutrophils % (auto) 76.8 % (37.0-80.0); Nucleated Red Blood Cells % 0.1 %; Platelet Count (auto) 235 10^3/uL (140-450); Red Blood Cells 2.83 10^6/uL (4.5-5.90); Red Cell Distribution Width 16.8 % (11.8-14.3)
[2021-03-20 08:50] LABS: Albumin 1.9 g/dL (3.4-5.0); Bilirubin, Total 0.4 mg/dL (0.2-1.0); Calcium 7.7 mg/dL (8.5-10.1); Phosphorus 2.8 mg/dL (2.5-4.90); Total Protein 5.3 g/dL (6.4-8.2)
[2021-03-20 09:00] VITALS: BP 175/83
[2021-03-20] MEDS: APIXABAN 2.5 MG TAB PO SCH (10:43)
[2021-03-20] MEDS: CARVEDILOL 3.125 MG TAB PO SCH ×2 (10:43→21:27)
[2021-03-20] MEDS: diazePAM 5 MG TAB PO SCH (10:44)
[2021-03-20] MEDS: amLODIPine BESYLATE 5 MG TAB PO SCH (10:44)
[2021-03-20 13:00] VITALS: BP 168/85
[2021-03-20] MEDS: SOD CHL 0.45% 1,000 ML IV SCH ×2 (14:30→23:20)
[2021-03-20 17:00] VITALS: BP 163/75
[2021-03-20] MEDS: TAMSULOSIN HYDROCHLORIDE 0.4 MG CAP PO SCH (18:05)
[2021-03-20] MEDS: ACETAMINOPHEN 500 MG TAB PO PRN (20:15)
[2021-03-20 20:16] VITALS: BP 155/69
[2021-03-21 05:00] VITALS: BP 166/77
[2021-03-21] MEDS: hydrALAZINE HCL 25 MG TAB PO SCH ×3 (05:18→21:39)
[2021-03-21] MEDS: VANCOMYCIN HCL 125MG/5ML ORAL SOL PO SCH ×4 (05:19→21:37)
[2021-03-21] MEDS: BISMUTH SUBSALICYLATE 262 MG CHEW PO SCH ×5 (05:19→23:09)
[2021-03-21 05:23] LABS: Potassium 3.6 mmol/L (3.5-5.1)
[2021-03-21 05:35] LABS: Albumin 1.8 g/dL (3.4-5.0); Bilirubin, Total 0.3 mg/dL (0.2-1.0); Phosphorus 3.2 mg/dL (2.5-4.90); Uric Acid 6.9 mg/dL (3.5-7.2)
[2021-03-21] MEDS: SEVELAMER 800 MG TAB PO SCH ×3 (07:59→18:01)
[2021-03-21 09:00] VITALS: BP 150/77
[2021-03-21] MEDS: amLODIPine BESYLATE 5 MG TAB PO SCH (09:50)
[2021-03-21] MEDS: diazePAM 5 MG TAB PO SCH (09:51)
[2021-03-21] MEDS: APIXABAN 2.5 MG TAB PO SCH (09:51)
[2021-03-21] MEDS: AMIODARONE HCL 200 MG TAB PO SCH (09:51)
[2021-03-21] MEDS: CARVEDILOL 3.125 MG TAB PO SCH ×2 (09:52→21:39)
[2021-03-21] MEDS: SOD CHL 0.45% 1,000 ML IV SCH ×2 (11:06→22:28)
[2021-03-21 13:00] VITALS: BP 141/76
[2021-03-21 17:00] VITALS: BP 154/82
[2021-03-21 17:30] VITALS: BP 138/77
[2021-03-21] MEDS: TAMSULOSIN HYDROCHLORIDE 0.4 MG CAP PO SCH (18:00)
[2021-03-21 21:49] VITALS: BP 149/85
[2021-03-22 04:53] VITALS: BP 152/86
[2021-03-22 06:00] LABS: Basophils # (auto) 0.1 10 ^3/uL (0-0.2); Basophils % (auto) 1.3 % (0.0-2.0); Eosinophils # (auto) 0.2 10 ^3/uL (0-0.8); Eosinophils % (auto) 2.4 % (0.0-7.0); Hematocrit 26.1 % (41.0-53.0); Hemoglobin 8.5 g/dL (13.5-17.5); Lymphocytes # (auto) 0.7 10 ^3/uL (0.4-5.4); Mean Corpuscular Hemoglobin 28.9 pg (28.0-32.0); Mean Corpuscular Hgb Conc. 32.7 g/dL (32.0-36.0); Mean Corpuscular Volume 88.5 fL (80.0-100.0); Monocytes % (auto) 12.5 % (0.0-12.0); Neutrophils # (auto) 5.8 10 ^3/uL (1.6-8.6); Neutrophils % (auto) 74.8 % (37.0-80.0); Platelet Count (auto) 225 10^3/uL (140-450); Red Blood Cells 2.94 10^6/uL (4.5-5.90); Red Cell Distribution Width 16.6 % (11.8-14.3); White Blood Cell 7.8 10^3/uL (4.4-10.8)
[2021-03-22 06:08] LABS: INR 1.14 (0.9-1.15)
[2021-03-22 06:21] LABS: Potassium 3.7 mmol/L (3.5-5.1)
[2021-03-22] MEDS: SOD CHL 0.45% 1,000 ML IV SCH ×2 (06:25→13:06)
[2021-03-22] MEDS: VANCOMYCIN HCL 125MG/5ML ORAL SOL PO SCH ×4 (06:26→21:51)
[2021-03-22] MEDS: BISMUTH SUBSALICYLATE 262 MG CHEW PO SCH ×4 (06:26→23:58)
[2021-03-22] MEDS: hydrALAZINE HCL 25 MG TAB PO SCH ×3 (06:26→21:52)
[2021-03-22 06:28] LABS: Albumin 1.8 g/dL (3.4-5.0); BUN/Creatinine Ratio 11.1; Bilirubin, Total 0.3 mg/dL (0.2-1.0); Calcium 7.3 mg/dL (8.5-10.1); Total Protein 5.2 g/dL (6.4-8.2)
[2021-03-22 09:00] VITALS: BP 156/106
[2021-03-22] MEDS: SEVELAMER 800 MG TAB PO SCH ×3 (09:31→18:24)
[2021-03-22] MEDS: AMIODARONE HCL 200 MG TAB PO SCH (09:31)
[2021-03-22] MEDS: APIXABAN 2.5 MG TAB PO SCH (09:32)
[2021-03-22] MEDS: diazePAM 5 MG TAB PO SCH (09:32)
[2021-03-22] MEDS: CARVEDILOL 3.125 MG TAB PO SCH ×2 (09:32→21:52)
[2021-03-22] MEDS: amLODIPine BESYLATE 5 MG TAB PO SCH (09:32)
[2021-03-22] MEDS ORDERED: LIDOCAINE 2%HCL (LOCAL ANESTH.) INJ 20ML MDV ONE (11:28)
[2021-03-22 13:11] VITALS: BP 151/82
[2021-03-22] MEDS: TAMSULOSIN HYDROCHLORIDE 0.4 MG CAP PO SCH (18:24)
[2021-03-22] MEDS ORDERED: SEVE800T10 PO (19:28)
[2021-03-22] MEDS ORDERED: ASPI-498 PO (19:28)
[2021-03-22] MEDS ORDERED: ACET-6 PO (19:28)
[2021-03-22] MEDS ORDERED: AMLO-496 PO (19:28)
[2021-03-22] MEDS ORDERED: CALC0.25 PO (19:28)
[2021-03-22] MEDS ORDERED: PROBTAB12 PO (19:31)
[2021-03-22] MEDS ORDERED: ZOLPIDEM TARTRATE 5 MG TAB PO ONE (20:30)
[2021-03-22 21:00] VITALS: BP 149/79
[2021-03-23] MEDS: ACETAMINOPHEN 500 MG TAB PO PRN ×2 (01:14→10:27)
[2021-03-23] MEDS: SOD CHL 0.45% 1,000 ML IV SCH ×4 (02:14→14:25)
[2021-03-23 05:04] VITALS: BP 156/80
[2021-03-23] MEDS: VANCOMYCIN HCL 125MG/5ML ORAL SOL PO SCH ×4 (05:11→23:23)
[2021-03-23] MEDS: BISMUTH SUBSALICYLATE 262 MG CHEW PO SCH ×4 (05:11→23:23)
[2021-03-23] MEDS: hydrALAZINE HCL 25 MG TAB PO SCH ×3 (05:12→23:22)
[2021-03-23 06:31] LABS: BUN/Creatinine Ratio 11.3; Calcium 7.4 mg/dL (8.5-10.1); Potassium 3.9 mmol/L (3.5-5.1)
[2021-03-23] MEDS: SEVELAMER 800 MG TAB PO SCH ×3 (08:01→17:38)
[2021-03-23] MEDS: CARVEDILOL 3.125 MG TAB PO SCH ×2 (08:01→23:22)
[2021-03-23] MEDS: APIXABAN 2.5 MG TAB PO SCH (08:02)
[2021-03-23] MEDS: diazePAM 5 MG TAB PO SCH (08:02)
[2021-03-23] MEDS: AMIODARONE HCL 200 MG TAB PO SCH (08:02)
[2021-03-23 08:27] VITALS: BP 143/73
[2021-03-23] MEDS: amLODIPine BESYLATE 5 MG TAB PO SCH ×2 (10:11→17:00)
[2021-03-23] MEDS ORDERED: FUROSEMIDE 40 MG/4 ML VIAL IV ONE (11:30)
[2021-03-23 11:44] VITALS: BP 154/86
[2021-03-23 12:30] VITALS: BP 166/93
[2021-03-23] MEDS: metroNIDAZOLE 500 MG TAB PO SCH ×2 (14:24→23:22)
[2021-03-23 16:40] VITALS: BP 158/85
[2021-03-23] MEDS: TAMSULOSIN HYDROCHLORIDE 0.4 MG CAP PO SCH (17:38)
[2021-03-23 22:03] VITALS: BP 149/92
[2021-03-24] MEDS: SOD CHL 0.45% 1,000 ML IV SCH ×2 (01:30→11:48)
[2021-03-24 05:20] VITALS: BP 122/79
[2021-03-24] MEDS: metroNIDAZOLE 500 MG TAB PO SCH ×3 (05:59→13:39)
[2021-03-24] MEDS: hydrALAZINE HCL 25 MG TAB PO SCH ×2 (05:59→13:39)
[2021-03-24] MEDS: BISMUTH SUBSALICYLATE 262 MG CHEW PO SCH ×3 (06:00→12:06)
[2021-03-24] MEDS: VANCOMYCIN HCL 125MG/5ML ORAL SOL PO SCH ×3 (06:00→11:51)
[2021-03-24] MEDS: SEVELAMER 800 MG TAB PO SCH ×2 (08:26→11:50)
[2021-03-24 08:44] VITALS: BP 146/80
[2021-03-24] MEDS: diazePAM 5 MG TAB PO SCH (10:00)
[2021-03-24] MEDS: CARVEDILOL 3.125 MG TAB PO SCH (11:01)
[2021-03-24] MEDS: AMIODARONE HCL 200 MG TAB PO SCH (11:02)
[2021-03-24] MEDS: amLODIPine BESYLATE 5 MG TAB PO SCH (11:02)
[2021-03-24] MEDS: APIXABAN 2.5 MG TAB PO SCH (11:03)
[2021-03-24] MEDS ORDERED: SUCRALFATE 1 GM/10 ML ORAL SUSP PO SCH (11:30)
[2021-03-24 12:44] VITALS: BP 153/86
[2021-03-24] MEDS ORDERED: MET500T PO (13:53)
[2021-03-24 16:31] VITALS: BP 150/77
[2021-03-24 16:52] VITALS: BP 150/77
== END 2021-03-24 17:40 | disposition home health service (06) | DRG 371 ==
LOC: EDBD 15:18 → EDUNIT# 15:18 → ER 15:18 → TELE 19:15 → TELE-CENTR 03-20 08:37
PROVIDERS: ADMIT Specialist; ATTEND Specialist
DX: A04.72 Enterocolitis due to Clostridium difficile, not specified as recurrent (principal); G92 Toxic encephalopathy; E43 Unspecified severe protein-calorie malnutrition; N18.6 End stage renal disease; N17.9 Acute kidney failure, unspecified; I13.2 Hypertensive heart and chronic kidney disease with heart failure and with stage 5 chronic kidney disease, or end stage renal disease; Z20.822 Contact with and (suspected) exposure to COVID-19; I25.10 Atherosclerotic heart disease of native coronary artery without angina pectoris; E86.1 Hypovolemia; I48.91 Unspecified atrial fibrillation; F03.90 Unspecified dementia, unspecified severity, without behavioral disturbance, psychotic disturbance, mood disturbance, and anxiety; D63.1 Anemia in chronic kidney disease; J44.9 Chronic obstructive pulmonary disease, unspecified; I50.9 Heart failure, unspecified; Z99.2 Dependence on renal dialysis; Z79.899 Other long term (current) drug therapy; Z90.49 Acquired absence of other specified parts of digestive tract; Z87.891 Personal history of nicotine dependence; Z86.73 Personal history of transient ischemic attack (TIA), and cerebral infarction without residual deficits; E78.00 Pure hypercholesterolemia, unspecified
CPT/HCPCS: 36415; 71045; 80048; 80053; 81001; 82570; 82962; 83735; 84100; 84156; 84300; 84484; 84550; 85025; 85610; 85730; 87081; 87426; 87493; 93005; 96360; 97163; G0378

== ENCOUNTER 2021-05-13 18:46 | Inpatient (IN) | payer MEDICARE, OTHER ==
[~2021-05-13] VITALS: Ht 172.7 cm; Wt 64.2 kg
[~2021-05-13 18:46] MED LIST changes: -ACET-3 PO; +ACET-6 PO; -AMLO-489 PO; +AMLO-496 PO; +ASPI-498 PO; -BISM1CHW5 PO; +CALC0.25 PO; -CALC3OIN2 PO; -CLON0.2T PO; -CLOP75TA70 PO; -CYCL0.05 EACHEYE; -DIA5T PO; -DOCU-94 PO; -FLUT0.05 NAS; -LIFI5DRO2 OP; +MET500T PO; -METO25TA93 PO; -NITR1SPR TL; +PROBTAB12 PO; -RIZA5TAB35 PO; -SEVE800T PO; +SEVE800T10 PO; -SODITAB PO
[2021-05-13] MEDS ORDERED: PANTOPRAZOLE 40 MG/10 ML VIAL INJ IV ONE (19:45)
[2021-05-13] MEDS ORDERED: PANTOPRAZOLE 40mg/50ML NS AE 50 ML IV ONE (19:45)
[2021-05-13 20:39] LABS: Basophils # (auto) 0 10 ^3/uL (0-0.2); Eosinophils # (auto) 0 10 ^3/uL (0-0.8); Lymphocytes # (auto) 0.3 10 ^3/uL (0.4-5.4)
[2021-05-13 20:40] LABS: Basophils % (auto) 0.4 % (0.0-2.0); Hematocrit 20.5 % (41.0-53.0); Mean Corpuscular Hemoglobin 29.2 pg (28.0-32.0); Mean Corpuscular Hgb Conc. 33.2 g/dL (32.0-36.0); Mean Corpuscular Volume 87.8 fL (80.0-100.0); Monocytes # (auto) 0.7 10 ^3/uL (0-1.3); Neutrophils # (auto) 5.6 10 ^3/uL (1.6-8.6); Neutrophils % (auto) 84.6 % (37.0-80.0); Red Blood Cells 2.34 10^6/uL (4.5-5.90); White Blood Cell 6.6 10^3/uL (4.4-10.8)
[2021-05-13 20:46] LABS: Red Cell Distribution Width 24.5 % (11.8-14.3)
[2021-05-13 20:52] LABS: Hemoglobin 6.8 g/dL (13.5-17.5)
[2021-05-13 20:55] LABS: INR 1.33 (0.9-1.15)
[2021-05-13 20:56] LABS: Albumin 2.8 g/dL (3.4-5.0); BUN/Creatinine Ratio 31.9; Calcium 8.3 mg/dL (8.5-10.1); Magnesium 2.1 mg/dL (1.6-2.6); Potassium 5.2 mmol/L (3.5-5.1)
[2021-05-13 20:59] LABS: Lactic Acid w/Reflex 2.3 mmol/L (0.4-2.0)
[2021-05-13 21:01] LABS: Bilirubin, Total 0.4 mg/dL (0.2-1.0); Total Protein 6.4 g/dL (6.4-8.2)
[2021-05-13 23:20] VITALS: BP 148/79
[2021-05-13 23:35] VITALS: BP 152/77
[2021-05-13 23:50] VITALS: BP 157/80
[2021-05-14] VITALS (30 sets, daily range): BP systolic 101–213; BP diastolic 66–116
[2021-05-14] MEDS ORDERED: ADENOSINE 6 MG/2 ML INJ IV ONE ×3 (00:43→01:00)
[2021-05-14] MEDS ORDERED: fentaNYL CITRATE 100 MCG/2 ML VL ONE (01:09)
[2021-05-14] MEDS ORDERED: CALCIUM GLUC 1,000mg/50ml-NS 50 ML IV ONE ×2 (01:12→01:15)
[2021-05-14] MEDS ORDERED: MAGNESIUM SULFATE 1GM/100ML 100 ML IV ONE ×2 (01:13→01:15)
[2021-05-14] MEDS ORDERED: fentaNYL CITRATE 100 MCG/2 ML VL IV ONE (01:15)
[2021-05-14] MEDS ORDERED: AMIODARONE HCL 150 MG in D5W 5% 100 ML IV ONE ×2 (01:15→02:30)
[2021-05-14] MEDS ORDERED: diphenhdrAMINE HCL 25 MG CAP PO PRN (01:15)
[2021-05-14] MEDS ORDERED: MORPHINE SULF INJ 2 MG/ML SYRINGE 1ML IV PRN (01:15)
[2021-05-14] MEDS ORDERED: PANTOPRAZOLE 40mg/50ML NS AE 50 ML IV ONE (01:15)
[2021-05-14] MEDS ORDERED: NITROGLYCERIN 0.4 MG SL TAB SL PRN (01:15)
[2021-05-14] MEDS ORDERED: ACETAMINOPHEN 500 MG TAB PO ONE (01:15)
[2021-05-14] MEDS ORDERED: AMIODARONE 450mg/250ml AE 250 ML IV ONE (01:17)
[2021-05-14] MEDS ORDERED: AMIODARONE HCL (50 MG/ ML) 3 ML VIAL IV ONE (01:18)
[2021-05-14] MEDS ORDERED: AMIODARONE 450mg/250ml AE 250 ML IV SCH ×2 (01:30→07:30)
[2021-05-14] MEDS ORDERED: PROTHROMBIN COMPLEX CONCENTRAT IV ONE (01:45)
[2021-05-14] MEDS ORDERED: STERILE WATER IV ONE (01:45)
[2021-05-14] MEDS ORDERED: SOD CHL 0.45% 1,000 ML IV ONE (02:00)
[2021-05-14 07:12] LABS: Urine Bacteria FEW /hpf (None Seen); Urine Blood Negative /uL (Negative); Urine Specific Gravity 1.015 (1.001-1.035); Urine WBC 2 /hpf (0 - 3)
[2021-05-14] MEDS ORDERED: hydrALAZINE HCL 20 MG/ML VL ONE (10:41)
[2021-05-14] MEDS: PANTOPRAZOLE 40 MG/10 ML VIAL INJ IV SCH ×2 (10:45→21:50)
[2021-05-14] MEDS: hydrALAZINE HCL 20 MG/ML VL IV PRN ×2 (10:46→23:07)
[2021-05-14] MEDS ORDERED: hydrALAZINE HCL 20 MG/ML VL IV PRN (11:00)
[2021-05-14] MEDS ORDERED: hydrALAZINE HCL 20 MG/ML VL IV ONE (11:00)
[2021-05-14] MEDS ORDERED: ALUM & MAG HYDROX-SIMETH LIQ(MAALOX) 30 ML PO PRN (11:15)
[2021-05-14] MEDS: SUCRALFATE 1 GM/10 ML ORAL SUSP PO SCH ×3 (12:03→21:52)
[2021-05-14] MEDS: FUROSEMIDE 20 MG/2 ML VIAL IV SCH (12:07)
[2021-05-14] MEDS ORDERED: B-CO-5 OR (13:15)
[2021-05-14] MEDS ORDERED: HYDR-4298 PO (13:15)
[2021-05-14] MEDS ORDERED: FURO40TA4 PO (13:15)
[2021-05-14 14:29] LABS: Basophils # (auto) 0 10 ^3/uL (0-0.2); Basophils % (auto) 0.4 % (0.0-2.0); Eosinophils # (auto) 0 10 ^3/uL (0-0.8); Eosinophils % (auto) 0.2 % (0.0-7.0); Hematocrit 30.6 % (41.0-53.0); Hemoglobin 10.7 g/dL (13.5-17.5); Lymphocytes # (auto) 0.3 10 ^3/uL (0.4-5.4); Mean Corpuscular Hemoglobin 30.8 pg (28.0-32.0); Mean Corpuscular Hgb Conc. 35.1 g/dL (32.0-36.0); Mean Corpuscular Volume 87.8 fL (80.0-100.0); Monocytes % (auto) 9.3 % (0.0-12.0); Neutrophils % (auto) 87.1 % (37.0-80.0); Red Blood Cells 3.49 10^6/uL (4.5-5.90); Red Cell Distribution Width 19.2 % (11.8-14.3); White Blood Cell 10.4 10^3/uL (4.4-10.8)
[2021-05-14 14:48] LABS: INR 1.13 (0.9-1.15); Partial Thromboplastin Time 29.9 sec (23.0-31.2)
[2021-05-14 14:52] LABS: BUN/Creatinine Ratio 36.2
[2021-05-14] MEDS ORDERED: AMIODARONE HCL 200 MG TAB PO ONE (16:30)
[2021-05-14] MEDS ORDERED: VERAPAMIL 2.5MG/ML INJ 2ML VIAL IV ONE (23:45)
[2021-05-14] MEDS ORDERED: DIGOXIN (250MCG/ML) 2 ML AMPULE IV ONE (23:45)
[2021-05-14] MEDS ORDERED: SOD CHL 0.45% 1,000 ML IV SCH (23:45)
[2021-05-14 23:51] LABS: Basophils # (auto) 0 10 ^3/uL (0-0.2); Basophils % (auto) 0.2 % (0.0-2.0); Eosinophils # (auto) 0 10 ^3/uL (0-0.8); Eosinophils % (auto) 0.2 % (0.0-7.0); Hematocrit 27.8 % (41.0-53.0); Hemoglobin 9.5 g/dL (13.5-17.5); Lymphocytes # (auto) 0.3 10 ^3/uL (0.4-5.4); Lymphocytes % (auto) 2.9 % (10.0-50.0); Mean Corpuscular Hemoglobin 30.2 pg (28.0-32.0); Mean Corpuscular Hgb Conc. 34.2 g/dL (32.0-36.0); Mean Corpuscular Volume 88.2 fL (80.0-100.0); Monocytes # (auto) 0.9 10 ^3/uL (0-1.3); Monocytes % (auto) 8.1 % (0.0-12.0); Neutrophils # (auto) 10.3 10 ^3/uL (1.6-8.6); Neutrophils % (auto) 88.6 % (37.0-80.0); Red Blood Cells 3.15 10^6/uL (4.5-5.90); Red Cell Distribution Width 18.9 % (11.8-14.3); White Blood Cell 11.6 10^3/uL (4.4-10.8)
[2021-05-15] VITALS (7 sets, daily range): BP systolic 135–163; BP diastolic 67–90
[2021-05-15 00:14] LABS: Calcium 8.1 mg/dL (8.5-10.1); Magnesium 2.2 mg/dL (1.6-2.6); Potassium 4.3 mmol/L (3.5-5.1)
[2021-05-15 00:36] LABS: BUN/Creatinine Ratio 39.1
[2021-05-15] MEDS ORDERED: SOD CHL 0.45% 1,000 ML IV SCH (01:15)
[2021-05-15] MEDS: hydrALAZINE HCL 20 MG/ML VL IV PRN (05:43)
[2021-05-15] MEDS: SUCRALFATE 1 GM/10 ML ORAL SUSP PO SCH ×4 (06:33→21:41)
[2021-05-15] MEDS ORDERED: MIDAZOLAM HCL 5 MG/ML-1ML VIAL ONE (08:53)
[2021-05-15] MEDS ORDERED: fentaNYL CITRATE 100 MCG/2 ML VL ONE (08:53)
[2021-05-15] MEDS ORDERED: diphenhdrAMINE HCL 50 MG/1 ML VL ONE (08:53)
[2021-05-15] MEDS ORDERED: LIDOCAINE VISCOUS 2% 15ML UD ONE (08:55)
[2021-05-15] MEDS: SODIUM BICARBONATE 50ML VIAL 150 ML in D5W 5% 1,000 ML IV SCH ×2 (09:00→20:00)
[2021-05-15] MEDS: AMIODARONE HCL 200 MG TAB PO SCH (09:00)
[2021-05-15] MEDS: PANTOPRAZOLE 40 MG/10 ML VIAL INJ IV SCH ×2 (09:00→21:41)
[2021-05-15] MEDS: FUROSEMIDE 20 MG/2 ML VIAL IV SCH (09:00)
[2021-05-15 19:14] LABS: BUN/Creatinine Ratio 37.9; Calcium 7.7 mg/dL (8.5-10.1); Potassium 3.9 mmol/L (3.5-5.1)
[2021-05-16 05:00] VITALS: BP 137/82
[2021-05-16 05:58] LABS: Basophils # (auto) 0 10 ^3/uL (0-0.2); Basophils % (auto) 0.5 % (0.0-2.0); Lymphocytes # (auto) 0.4 10 ^3/uL (0.4-5.4); Monocytes # (auto) 0.6 10 ^3/uL (0-1.3); White Blood Cell 6.2 10^3/uL (4.4-10.8)
[2021-05-16 06:04] LABS: Eosinophils # (auto) 0.1 10 ^3/uL (0-0.8); Eosinophils % (auto) 2.3 % (0.0-7.0); Hematocrit 22.8 % (41.0-53.0); Lymphocytes % (auto) 6.4 % (10.0-50.0); Mean Corpuscular Hemoglobin 30.8 pg (28.0-32.0); Mean Corpuscular Volume 88.1 fL (80.0-100.0); Monocytes % (auto) 10.2 % (0.0-12.0); Neutrophils % (auto) 80.6 % (37.0-80.0); Red Blood Cells 2.59 10^6/uL (4.5-5.90); Red Cell Distribution Width 18.9 % (11.8-14.3)
[2021-05-16 06:17] LABS: BUN/Creatinine Ratio 34.7; Calcium 7.4 mg/dL (8.5-10.1); Phosphorus 3.3 mg/dL (2.5-4.90); Potassium 3.8 mmol/L (3.5-5.1)
[2021-05-16] MEDS: SUCRALFATE 1 GM/10 ML ORAL SUSP PO SCH ×4 (06:52→22:09)
[2021-05-16] MEDS: SODIUM BICARBONATE 50ML VIAL 150 ML in D5W 5% 1,000 ML IV SCH ×2 (07:30→18:33)
[2021-05-16 08:43] VITALS: BP 144/63
[2021-05-16] MEDS: AMIODARONE HCL 200 MG TAB PO SCH (10:00)
[2021-05-16] MEDS: PANTOPRAZOLE 40 MG/10 ML VIAL INJ IV SCH ×2 (10:00→22:09)
[2021-05-16] MEDS: FUROSEMIDE 20 MG/2 ML VIAL IV SCH (10:00)
[2021-05-16 13:05] VITALS: BP 147/80
[2021-05-16 17:10] VITALS: BP 147/88
[2021-05-16 22:00] VITALS: BP 154/84
[2021-05-17 05:00] VITALS: BP 147/55
[2021-05-17 05:42] LABS: Basophils # (auto) 0 10 ^3/uL (0-0.2); Hematocrit 24.3 % (41.0-53.0); Lymphocytes # (auto) 0.5 10 ^3/uL (0.4-5.4); Mean Corpuscular Volume 89.9 fL (80.0-100.0); Monocytes # (auto) 0.6 10 ^3/uL (0-1.3)
[2021-05-17 05:44] LABS: Basophils % (auto) 0.6 % (0.0-2.0); Eosinophils # (auto) 0.2 10 ^3/uL (0-0.8); Eosinophils % (auto) 3.2 % (0.0-7.0); Hemoglobin 8.2 g/dL (13.5-17.5); Lymphocytes % (auto) 9.4 % (10.0-50.0); Mean Corpuscular Hemoglobin 30.4 pg (28.0-32.0); Mean Corpuscular Hgb Conc. 33.8 g/dL (32.0-36.0); Monocytes % (auto) 11.5 % (0.0-12.0); Neutrophils # (auto) 3.9 10 ^3/uL (1.6-8.6); Neutrophils % (auto) 75.3 % (37.0-80.0); Red Cell Distribution Width 19.1 % (11.8-14.3); White Blood Cell 5.1 10^3/uL (4.4-10.8)
[2021-05-17 06:10] LABS: BUN/Creatinine Ratio 32.7; Calcium 7.2 mg/dL (8.5-10.1); Potassium 3.3 mmol/L (3.5-5.1)
[2021-05-17] MEDS: SODIUM BICARBONATE 50ML VIAL 150 ML in D5W 5% 1,000 ML IV SCH (06:30)
[2021-05-17] MEDS: SUCRALFATE 1 GM/10 ML ORAL SUSP PO SCH ×4 (07:00→22:56)
[2021-05-17 08:00] VITALS: BP 168/85
[2021-05-17 09:00] VITALS: BP 168/85
[2021-05-17] MEDS: PANTOPRAZOLE 40 MG/10 ML VIAL INJ IV SCH ×2 (10:54→22:55)
[2021-05-17] MEDS: AMIODARONE HCL 200 MG TAB PO SCH (10:54)
[2021-05-17] MEDS: FUROSEMIDE 20 MG/2 ML VIAL IV SCH (10:54)
[2021-05-17 13:00] VITALS: BP 76/55
[2021-05-17] MEDS: hydrALAZINE HCL 20 MG/ML VL IV PRN ×2 (13:32→18:05)
[2021-05-17] MEDS: LACTATED RINGER'S 1,000 ML IV SCH (14:30)
[2021-05-17] MEDS: ACETAMINOPHEN 500 MG TAB PO PRN ×2 (16:14→23:12)
[2021-05-17 17:00] VITALS: BP 171/74
[2021-05-17] MEDS: TAMSULOSIN HYDROCHLORIDE 0.4 MG CAP PO SCH (18:04)
[2021-05-17] MEDS: SEVELAMER 800 MG TAB PO SCH (18:04)
[2021-05-17 21:51] VITALS: BP 161/75
[2021-05-17] MEDS: METOPROLOL TARTRATE 25 MG TAB PO SCH (22:57)
[2021-05-17] MEDS: ATORVASTATIN 20 MG TAB PO SCH (22:57)
[2021-05-17] MEDS: ISOSORBIDE MONONITRATE ER 60 MG TAB PO SCH (22:58)
[2021-05-18] VITALS (7 sets, daily range): BP systolic 147–176; BP diastolic 65–88
[2021-05-18] MEDS: LACTATED RINGER'S 1,000 ML IV SCH (03:50)
[2021-05-18 06:02] LABS: Basophils # (auto) 0 10 ^3/uL (0-0.2); Eosinophils # (auto) 0.1 10 ^3/uL (0-0.8); Hemoglobin 8.3 g/dL (13.5-17.5); Lymphocytes # (auto) 0.4 10 ^3/uL (0.4-5.4); Monocytes # (auto) 0.7 10 ^3/uL (0-1.3); White Blood Cell 4.8 10^3/uL (4.4-10.8)
[2021-05-18] MEDS: SUCRALFATE 1 GM/10 ML ORAL SUSP PO SCH ×4 (06:04→22:57)
[2021-05-18 06:05] LABS: Basophils % (auto) 0.5 % (0.0-2.0); Eosinophils % (auto) 1.5 % (0.0-7.0); Hematocrit 24.4 % (41.0-53.0); Lymphocytes % (auto) 8.4 % (10.0-50.0); Mean Corpuscular Hemoglobin 30.6 pg (28.0-32.0); Mean Corpuscular Hgb Conc. 34.2 g/dL (32.0-36.0); Mean Corpuscular Volume 89.7 fL (80.0-100.0); Monocytes % (auto) 14.8 % (0.0-12.0); Neutrophils # (auto) 3.6 10 ^3/uL (1.6-8.6); Neutrophils % (auto) 74.8 % (37.0-80.0); Nucleated Red Blood Cells % 0.1 %; Red Blood Cells 2.72 10^6/uL (4.5-5.90); Red Cell Distribution Width 18.5 % (11.8-14.3)
[2021-05-18 06:07] LABS: BUN/Creatinine Ratio 24.3; Calcium 7.3 mg/dL (8.5-10.1); Potassium 3.4 mmol/L (3.5-5.1)
[2021-05-18] MEDS: SEVELAMER 800 MG TAB PO SCH ×3 (08:50→17:00)
[2021-05-18] MEDS: B-COMPLEX W/ C & FOLIC ACID(NEPHROVITE TAB) PO SCH (10:16)
[2021-05-18] MEDS: PANTOPRAZOLE 40 MG/10 ML VIAL INJ IV SCH ×2 (10:16→22:38)
[2021-05-18] MEDS: METOPROLOL TARTRATE 25 MG TAB PO SCH ×2 (10:17→22:37)
[2021-05-18] MEDS: AMIODARONE HCL 200 MG TAB PO SCH (10:18)
[2021-05-18] MEDS: FLORASTOR (S. BOULARDII) 250 MG CAP PO SCH (10:18)
[2021-05-18] MEDS: ISOSORBIDE MONONITRATE ER 60 MG TAB PO SCH ×2 (10:18→22:37)
[2021-05-18] MEDS: FUROSEMIDE 40 MG TAB PO SCH (10:18)
[2021-05-18] MEDS ORDERED: LACTATED RINGER'S 1,000 ML IV SCH (12:15)
[2021-05-18] MEDS ORDERED: POTASSIUM CHL 20 Meq TABLET PO ONE (12:30)
[2021-05-18] MEDS: hydrALAZINE HCL 20 MG/ML VL IV PRN (13:09)
[2021-05-18] MEDS: TAMSULOSIN HYDROCHLORIDE 0.4 MG CAP PO SCH (16:59)
[2021-05-18] MEDS: ATORVASTATIN 20 MG TAB PO SCH (22:36)
[2021-05-19] VITALS (7 sets, daily range): BP systolic 133–174; BP diastolic 54–94
[2021-05-19 05:45] LABS: Calcium 7.3 mg/dL (8.5-10.1); Potassium 3.8 mmol/L (3.5-5.1)
[2021-05-19 05:48] LABS: BUN/Creatinine Ratio 20.6
[2021-05-19] MEDS: SUCRALFATE 1 GM/10 ML ORAL SUSP PO SCH ×4 (06:02→21:59)
[2021-05-19] MEDS: ACETAMINOPHEN 500 MG TAB PO PRN (06:30)
[2021-05-19] MEDS: PANTOPRAZOLE 40 MG/10 ML VIAL INJ IV SCH ×2 (09:07→21:59)
[2021-05-19] MEDS: B-COMPLEX W/ C & FOLIC ACID(NEPHROVITE TAB) PO SCH (09:08)
[2021-05-19] MEDS: ISOSORBIDE MONONITRATE ER 60 MG TAB PO SCH ×2 (09:08→21:58)
[2021-05-19] MEDS: FLORASTOR (S. BOULARDII) 250 MG CAP PO SCH (09:08)
[2021-05-19] MEDS: FUROSEMIDE 40 MG TAB PO SCH (09:08)
[2021-05-19] MEDS: SEVELAMER 800 MG TAB PO SCH ×3 (09:09→17:03)
[2021-05-19] MEDS: AMIODARONE HCL 200 MG TAB PO SCH (09:09)
[2021-05-19] MEDS: METOPROLOL TARTRATE 25 MG TAB PO SCH ×2 (09:09→21:58)
[2021-05-19] MEDS: hydrALAZINE HCL 20 MG/ML VL IV PRN ×2 (10:39→23:20)
[2021-05-19] MEDS: amLODIPine BESYLATE 5 MG TAB PO SCH (12:05)
[2021-05-19] MEDS: TAMSULOSIN HYDROCHLORIDE 0.4 MG CAP PO SCH (17:03)
[2021-05-19] MEDS: ATORVASTATIN 20 MG TAB PO SCH (21:58)
[2021-05-20 05:00] VITALS: BP 156/76
[2021-05-20] MEDS: ACETAMINOPHEN 500 MG TAB PO PRN (05:09)
[2021-05-20] MEDS: hydrALAZINE HCL 20 MG/ML VL IV PRN (05:32)
[2021-05-20 05:36] LABS: Basophils # (auto) 0 10 ^3/uL (0-0.2); Basophils % (auto) 0.6 % (0.0-2.0); Eosinophils # (auto) 0.2 10 ^3/uL (0-0.8); Eosinophils % (auto) 1.9 % (0.0-7.0); Hematocrit 27.7 % (41.0-53.0); Hemoglobin 9.5 g/dL (13.5-17.5); Lymphocytes # (auto) 0.7 10 ^3/uL (0.4-5.4); Lymphocytes % (auto) 8.8 % (10.0-50.0); Mean Corpuscular Hemoglobin 30.6 pg (28.0-32.0); Mean Corpuscular Hgb Conc. 34.2 g/dL (32.0-36.0); Mean Corpuscular Volume 89.6 fL (80.0-100.0); Monocytes % (auto) 12.7 % (0.0-12.0); Red Blood Cells 3.09 10^6/uL (4.5-5.90)
[2021-05-20 05:57] LABS: Potassium 3.9 mmol/L (3.5-5.1)
[2021-05-20 06:04] LABS: Albumin 2.2 g/dL (3.4-5.0); BUN/Creatinine Ratio 18.7; Bilirubin, Total 0.4 mg/dL (0.2-1.0); Calcium 7.5 mg/dL (8.5-10.1); Total Protein 5.7 g/dL (6.4-8.2)
[2021-05-20] MEDS: SUCRALFATE 1 GM/10 ML ORAL SUSP PO SCH ×4 (06:07→21:46)
[2021-05-20] MEDS ORDERED: HYDROcodone-ACET 5/325MG TAB PO PRN (07:00)
[2021-05-20] MEDS: SEVELAMER 800 MG TAB PO SCH ×3 (08:59→17:13)
[2021-05-20] MEDS: METOPROLOL TARTRATE 25 MG TAB PO SCH ×2 (08:59→21:47)
[2021-05-20] MEDS: FLORASTOR (S. BOULARDII) 250 MG CAP PO SCH (08:59)
[2021-05-20] MEDS: B-COMPLEX W/ C & FOLIC ACID(NEPHROVITE TAB) PO SCH (08:59)
[2021-05-20 09:00] VITALS: BP 166/81
[2021-05-20] MEDS: AMIODARONE HCL 200 MG TAB PO SCH (09:00)
[2021-05-20] MEDS: FUROSEMIDE 40 MG TAB PO SCH (09:00)
[2021-05-20] MEDS: PANTOPRAZOLE 40 MG/10 ML VIAL INJ IV SCH ×2 (09:01→21:46)
[2021-05-20] MEDS: amLODIPine BESYLATE 5 MG TAB PO SCH (09:01)
[2021-05-20] MEDS: ISOSORBIDE MONONITRATE ER 60 MG TAB PO SCH ×2 (09:01→21:48)
[2021-05-20 12:57] VITALS: BP 150/86
[2021-05-20 17:00] VITALS: BP 144/79
[2021-05-20] MEDS: TAMSULOSIN HYDROCHLORIDE 0.4 MG CAP PO SCH (17:13)
[2021-05-20] MEDS: ATORVASTATIN 20 MG TAB PO SCH (21:47)
[2021-05-20 22:00] VITALS: BP 149/65
[2021-05-21] VITALS (7 sets, daily range): BP systolic 128–162; BP diastolic 69–88
[2021-05-21 05:58] LABS: BUN/Creatinine Ratio 17.5; Calcium 7.6 mg/dL (8.5-10.1)
[2021-05-21] MEDS: SUCRALFATE 1 GM/10 ML ORAL SUSP PO SCH ×4 (06:20→22:38)
[2021-05-21] MEDS: hydrALAZINE HCL 20 MG/ML VL IV PRN (06:21)
[2021-05-21] MEDS: SEVELAMER 800 MG TAB PO SCH ×3 (07:46→18:00)
[2021-05-21] MEDS: PANTOPRAZOLE 40 MG/10 ML VIAL INJ IV SCH ×2 (09:52→22:38)
[2021-05-21] MEDS: ISOSORBIDE MONONITRATE ER 60 MG TAB PO SCH ×2 (09:52→22:39)
[2021-05-21] MEDS: B-COMPLEX W/ C & FOLIC ACID(NEPHROVITE TAB) PO SCH (09:53)
[2021-05-21] MEDS: amLODIPine BESYLATE 5 MG TAB PO SCH (09:53)
[2021-05-21] MEDS: FLORASTOR (S. BOULARDII) 250 MG CAP PO SCH (09:54)
[2021-05-21] MEDS: METOPROLOL TARTRATE 25 MG TAB PO SCH ×2 (09:54→22:40)
[2021-05-21] MEDS: AMIODARONE HCL 200 MG TAB PO SCH (09:54)
[2021-05-21] MEDS: FUROSEMIDE 40 MG TAB PO SCH (09:54)
[2021-05-21] MEDS ORDERED: ISOSORBIDE MONONITRATE ER 60 MG TAB PO SCH (12:45)
[2021-05-21] MEDS: TAMSULOSIN HYDROCHLORIDE 0.4 MG CAP PO SCH (18:00)
[2021-05-21] MEDS ORDERED: MET25T PO (18:49)
[2021-05-21] MEDS ORDERED: SUCR1SUS10 PO (18:49)
[2021-05-21] MEDS ORDERED: APIX2.5T PO (18:49)
[2021-05-21] MEDS ORDERED: AML5T PO (18:49)
[2021-05-21] MEDS: ATORVASTATIN 20 MG TAB PO SCH (22:40)
[2021-05-22 05:00] VITALS: BP 135/78
[2021-05-22] MEDS: SUCRALFATE 1 GM/10 ML ORAL SUSP PO SCH ×2 (06:08→11:30)
[2021-05-22] MEDS: SEVELAMER 800 MG TAB PO SCH ×2 (08:00→12:00)
[2021-05-22 09:00] VITALS: BP 108/68
[2021-05-22 09:10] VITALS: BP 133/67
[2021-05-22] MEDS: FLORASTOR (S. BOULARDII) 250 MG CAP PO SCH (10:00)
[2021-05-22] MEDS: AMIODARONE HCL 200 MG TAB PO SCH (10:00)
[2021-05-22] MEDS: FUROSEMIDE 40 MG TAB PO SCH (10:00)
[2021-05-22] MEDS: METOPROLOL TARTRATE 25 MG TAB PO SCH (10:00)
[2021-05-22] MEDS: PANTOPRAZOLE 40 MG/10 ML VIAL INJ IV SCH (10:00)
[2021-05-22] MEDS: amLODIPine BESYLATE 5 MG TAB PO SCH (10:00)
[2021-05-22] MEDS: ISOSORBIDE MONONITRATE ER 60 MG TAB PO SCH (10:00)
[2021-05-22] MEDS: B-COMPLEX W/ C & FOLIC ACID(NEPHROVITE TAB) PO SCH (10:00)
== END 2021-05-22 11:30 | disposition home or self-care (01) | DRG 377 ==
LOC: EDUNIT# 18:46 → ER 18:46 → EDBD 18:46 → TELE 05-14 01:12 → TELE-WESTW 05-14 18:20
PROVIDERS: ADMIT Specialist; ATTEND Specialist
PROC: 30233N1 Transfusion of Nonautologous Red Blood Cells into Peripheral Vein, Percutaneous Approach (ICD-10-PCS; 2021-05-13)
PROC: 30233K1 Transfusion of Nonautologous Frozen Plasma into Peripheral Vein, Percutaneous Approach (ICD-10-PCS; 2021-05-14)
PROC: 05HA33Z Insertion of Infusion Device into Left Brachial Vein, Percutaneous Approach (ICD-10-PCS; 2021-05-14)
PROC: B54NZZA Ultrasonography of Left Upper Extremity Veins, Guidance (ICD-10-PCS; 2021-05-14)
PROC: 0W3P8ZZ Control Bleeding in Gastrointestinal Tract, Via Natural or Artificial Opening Endoscopic (ICD-10-PCS; principal; 2021-05-15 10:12)
DX: K31.82 Dieulafoy lesion (hemorrhagic) of stomach and duodenum (principal); G92 Toxic encephalopathy; N18.6 End stage renal disease; K25.4 Chronic or unspecified gastric ulcer with hemorrhage; K20.91 Esophagitis, unspecified with bleeding; A04.72 Enterocolitis due to Clostridium difficile, not specified as recurrent; E44.0 Moderate protein-calorie malnutrition; C34.91 Malignant neoplasm of unspecified part of right bronchus or lung; E87.2 Acidosis; I13.2 Hypertensive heart and chronic kidney disease with heart failure and with stage 5 chronic kidney disease, or end stage renal disease; N17.9 Acute kidney failure, unspecified; E86.1 Hypovolemia; I48.91 Unspecified atrial fibrillation; I50.9 Heart failure, unspecified; E87.5 Hyperkalemia; F43.10 Post-traumatic stress disorder, unspecified; I25.10 Atherosclerotic heart disease of native coronary artery without angina pectoris; J44.9 Chronic obstructive pulmonary disease, unspecified; R09.02 Hypoxemia; Z51.5 Encounter for palliative care; N50.9 Disorder of male genital organs, unspecified; D50.9 Iron deficiency anemia, unspecified; Z20.822 Contact with and (suspected) exposure to COVID-19; E88.09 Other disorders of plasma-protein metabolism, not elsewhere classified; N20.0 Calculus of kidney; Z82.49 Family history of ischemic heart disease and other diseases of the circulatory system; Z85.118 Personal history of other malignant neoplasm of bronchus and lung; Z86.73 Personal history of transient ischemic attack (TIA), and cerebral infarction without residual deficits; Z79.82 Long term (current) use of aspirin; Z99.2 Dependence on renal dialysis; Z68.22 Body mass index [BMI] 22.0-22.9, adult; Z87.891 Personal history of nicotine dependence; Z86.79 Personal history of other diseases of the circulatory system; Z87.11 Personal history of peptic ulcer disease; Z91.012 Allergy to eggs
CPT/HCPCS: 36415; 70450; 71045; 74176; 80048; 80053; 81001; 82270; 82306; 82962; 83605; 83735; 83880; 83970; 84100; 84484; 84550; 85025; 85379; 85610; 85730; 86850; 86900; 86901; 86920; 87081; 87426; 93005; 96365; 96366; 96367; 96368; 96375; 96376; C9113; C9132; G0378; J0153; J2250; J7060

== ENCOUNTER 2021-07-18 17:19 | Inpatient (IN) | payer OTHER, MEDICARE ==
[~2021-07-18] VITALS: Ht 172.7 cm; Wt 60.6 kg
[~2021-07-18 17:19] MED LIST changes: -ACET-6 PO; +AML5T PO; -AMLO-496 PO; +B-CO-5 OR; -CALC0.25 PO; -CARV3.1240 PO; -CETI10CA PO; +FURO40TA4 PO; -HYDR-4296 PO; +HYDR-4298 PO; +MET25T PO; -MET500T PO; -NIFE1TAB30 PO; +SUCR1SUS10 PO; -VANC125PO PO
[2021-07-18 18:10] LABS: Basophils # (auto) 0 10 ^3/uL (0-0.2); Basophils % (auto) 0.3 % (0.0-2.0); Eosinophils # (auto) 0.1 10 ^3/uL (0-0.8); Hematocrit 31.7 % (41.0-53.0); Hemoglobin 10.3 g/dL (13.5-17.5); Lymphocytes # (auto) 0.3 10 ^3/uL (0.4-5.4); Lymphocytes % (auto) 3.8 % (10.0-50.0); Mean Corpuscular Hemoglobin 27.4 pg (28.0-32.0); Mean Corpuscular Hgb Conc. 32.5 g/dL (32.0-36.0); Mean Corpuscular Volume 84.2 fL (80.0-100.0); Monocytes # (auto) 0.6 10 ^3/uL (0-1.3); Monocytes % (auto) 7.9 % (0.0-12.0); Neutrophils # (auto) 6.2 10 ^3/uL (1.6-8.6); Red Blood Cells 3.76 10^6/uL (4.5-5.90); Red Cell Distribution Width 15.5 % (11.8-14.3); White Blood Cell 7.2 10^3/uL (4.4-10.8)
[2021-07-18 18:25] LABS: Albumin 2.6 g/dL (3.4-5.0); Calcium 8.6 mg/dL (8.5-10.1); Potassium 3.9 mmol/L (3.5-5.1)
[2021-07-18 18:30] LABS: BUN/Creatinine Ratio 19.3; Bilirubin, Total 0.5 mg/dL (0.2-1.0); Total Protein 6.9 g/dL (6.4-8.2)
[2021-07-18] MEDS ORDERED: ONDANSETRON HCL 4 MG/2 ML VIAL IV ONE (20:15)
[2021-07-18 20:47] LABS: Magnesium 2.6 mg/dL (1.6-2.6)
[2021-07-18] MEDS ORDERED: SOD CHL 0.45% 1,000 ML IV ONE (23:45)
[2021-07-18] MEDS ORDERED: MORPHINE SULFATE INJECTION 2 MG/ML SYRG IV PRN (23:45)
[2021-07-18] MEDS ORDERED: NITROGLYCERIN 0.4 MG SL TAB SL PRN (23:45)
[2021-07-19 05:26] LABS: Urine Bacteria NONE SEEN /hpf (None Seen); Urine Blood Negative /uL (Negative); Urine Hyaline Cast FEW /lpf (0 - 2); Urine Specific Gravity 1.014 (1.001-1.035); Urine WBC 1 /hpf (0 - 3)
[2021-07-19] MEDS ORDERED: FUROSEMIDE 100 MG/10ML VIAL IV ONE (16:00)
[2021-07-19 17:21] LABS: BUN/Creatinine Ratio 20.6; Calcium 8.1 mg/dL (8.5-10.1); Potassium 3.6 mmol/L (3.5-5.1)
[2021-07-19 21:38] VITALS: BP 158/83
[2021-07-19 22:00] VITALS: BP 158/83
[2021-07-20] MEDS ORDERED: FUROSEMIDE 40 MG/4 ML VIAL IV ONE (01:00)
[2021-07-20] MEDS: DIGOXIN (250MCG/ML) 2 ML AMPULE IV SCH ×2 (01:34→08:09)
[2021-07-20 03:02] LABS: Calcium 8.3 mg/dL (8.5-10.1); Potassium 3.6 mmol/L (3.5-5.1)
[2021-07-20 03:07] LABS: BUN/Creatinine Ratio 21.3
[2021-07-20] MEDS ORDERED: hydrALAZINE HCL 25 MG TAB PO PRN (04:45)
[2021-07-20 05:00] VITALS: BP 166/86
[2021-07-20 05:58] LABS: BUN/Creatinine Ratio 19.9; Calcium 8.4 mg/dL (8.5-10.1); Potassium 3.5 mmol/L (3.5-5.1)
[2021-07-20 08:00] VITALS: BP 149/72
[2021-07-20 09:00] VITALS: BP 149/72
[2021-07-20] MEDS ORDERED: SOD CHL 0.45% 1,000 ML IV SCH ×2 (11:30→12:30)
[2021-07-20] MEDS ORDERED: FUROSEMIDE 20 MG TAB PO ONE (12:15)
[2021-07-20] MEDS: PIPERACILLIN-TAZOB 2.25GM 50 ML IV SCH (12:42)
[2021-07-20] MEDS: amLODIPine BESYLATE 5 MG TAB PO SCH (12:43)
[2021-07-20 13:00] VITALS: BP 179/85
[2021-07-20] MEDS ORDERED: ALBUTEROL SULF 2.5 MG/0.5ML(0.5%) NEB SOLN NEB SCH (14:00)
[2021-07-20] MEDS: CLINDAMYCIN 300MG IV 50 ML IV SCH (15:11)
[2021-07-20 17:00] VITALS: BP 177/83
[2021-07-20] MEDS: hydrALAZINE HCL 25 MG TAB PO PRN (17:59)
[2021-07-20] MEDS: ALBUTEROL SULF 2.5 MG/0.5ML(0.5%) NEB SOLN NEB SCH ×2 (18:54→21:31)
[2021-07-20] MEDS ORDERED: cloNIDine HCL 0.1 MG TAB PO PRN (21:15)
[2021-07-20 22:00] VITALS: BP 158/81
[2021-07-21] VITALS (7 sets, daily range): BP systolic 137–177; BP diastolic 58–86
[2021-07-21] MEDS: PIPERACILLIN-TAZOB 2.25GM 50 ML IV SCH ×2 (01:00→12:40)
[2021-07-21] MEDS: ALBUTEROL SULF 2.5 MG/0.5ML(0.5%) NEB SOLN NEB SCH ×6 (02:00→22:12)
[2021-07-21] MEDS: CLINDAMYCIN 300MG IV 50 ML IV SCH ×2 (02:51→15:10)
[2021-07-21 06:46] LABS: Potassium 3.5 mmol/L (3.5-5.1)
[2021-07-21 06:50] LABS: BUN/Creatinine Ratio 20.2; Calcium 8.3 mg/dL (8.5-10.1)
[2021-07-21] MEDS: DIGOXIN 0.125 MG TAB PO SCH (09:35)
[2021-07-21] MEDS: amLODIPine BESYLATE 5 MG TAB PO SCH (09:35)
[2021-07-21] MEDS: hydrALAZINE HCL 25 MG TAB PO PRN (13:25)
[2021-07-22] MEDS: PIPERACILLIN-TAZOB 2.25GM 50 ML IV SCH ×2 (00:54→15:00)
[2021-07-22] MEDS: CLINDAMYCIN 300MG IV 50 ML IV SCH ×2 (03:13→14:56)
[2021-07-22 05:00] VITALS: BP 150/80
[2021-07-22] MEDS: ALBUTEROL SULF 2.5 MG/0.5ML(0.5%) NEB SOLN NEB SCH ×5 (08:08→23:00)
[2021-07-22 09:00] VITALS: BP 153/66
[2021-07-22] MEDS: amLODIPine BESYLATE 5 MG TAB PO SCH (10:57)
[2021-07-22] MEDS: DIGOXIN 0.125 MG TAB PO SCH (10:57)
[2021-07-22 13:00] VITALS: BP 150/73
[2021-07-22 13:46] LABS: Basophils # (auto) 0.1 10 ^3/uL (0-0.2); Basophils % (auto) 1.4 % (0.0-2.0); Eosinophils # (auto) 0.1 10 ^3/uL (0-0.8); Eosinophils % (auto) 2.7 % (0.0-7.0); Hematocrit 30.6 % (41.0-53.0); Lymphocytes # (auto) 0.3 10 ^3/uL (0.4-5.4); Lymphocytes % (auto) 6.7 % (10.0-50.0); Mean Corpuscular Hemoglobin 27.5 pg (28.0-32.0); Mean Corpuscular Hgb Conc. 32.9 g/dL (32.0-36.0); Mean Corpuscular Volume 83.7 fL (80.0-100.0); Monocytes # (auto) 0.6 10 ^3/uL (0-1.3); Monocytes % (auto) 11.5 % (0.0-12.0); Neutrophils # (auto) 4.1 10 ^3/uL (1.6-8.6); Neutrophils % (auto) 77.7 % (37.0-80.0); Red Blood Cells 3.65 10^6/uL (4.5-5.90); Red Cell Distribution Width 15.4 % (11.8-14.3); White Blood Cell 5.2 10^3/uL (4.4-10.8)
[2021-07-22 13:55] LABS: Albumin 2.2 g/dL (3.4-5.0); BUN/Creatinine Ratio 18.3; Calcium 8.3 mg/dL (8.5-10.1); Potassium 3.6 mmol/L (3.5-5.1); Total Protein 6.3 g/dL (6.4-8.2)
[2021-07-22 14:09] LABS: Bilirubin, Total 0.4 mg/dL (0.2-1.0)
[2021-07-22 16:46] VITALS: BP 152/69
[2021-07-22 22:00] VITALS: BP 160/80
[2021-07-22] MEDS: hydrALAZINE HCL 25 MG TAB PO PRN (23:18)
[2021-07-23] VITALS (7 sets, daily range): BP systolic 140–164; BP diastolic 59–85
[2021-07-23] MEDS: PIPERACILLIN-TAZOB 2.25GM 50 ML IV SCH ×2 (01:13→13:57)
[2021-07-23] MEDS: CLINDAMYCIN 300MG IV 50 ML IV SCH ×2 (03:29→17:11)
[2021-07-23 06:12] LABS: Calcium 7.8 mg/dL (8.5-10.1); Potassium 3.9 mmol/L (3.5-5.1)
[2021-07-23 06:25] LABS: BUN/Creatinine Ratio 17.9
[2021-07-23] MEDS: ALBUTEROL SULF 2.5 MG/0.5ML(0.5%) NEB SOLN NEB SCH ×6 (06:34→22:15)
[2021-07-23] MEDS: DIGOXIN 0.125 MG TAB PO SCH (10:25)
[2021-07-23] MEDS: amLODIPine BESYLATE 5 MG TAB PO SCH (10:25)
[2021-07-23 13:37] LABS: Folate (Folic Acid) 14.62 ng/mL (5.38-24)
[2021-07-23] MEDS: APIXABAN 2.5 MG TAB PO SCH (22:00)
[2021-07-24] MEDS: PIPERACILLIN-TAZOB 2.25GM 50 ML IV SCH ×2 (01:27→14:45)
[2021-07-24] MEDS: CLINDAMYCIN 300MG IV 50 ML IV SCH ×2 (03:00→18:42)
[2021-07-24 05:00] VITALS: BP 147/91
[2021-07-24 05:07] LABS: RPR Non Reactive (Non Reactive)
[2021-07-24] MEDS: ALBUTEROL SULF 2.5 MG/0.5ML(0.5%) NEB SOLN NEB SCH ×6 (06:24→22:14)
[2021-07-24 06:50] LABS: Albumin 2.2 g/dL (3.4-5.0); Calcium 8.3 mg/dL (8.5-10.1); Potassium 3.9 mmol/L (3.5-5.1)
[2021-07-24 06:51] LABS: Basophils # (auto) 0.1 10 ^3/uL (0-0.2); Basophils % (auto) 0.9 % (0.0-2.0); Eosinophils # (auto) 0.2 10 ^3/uL (0-0.8); Eosinophils % (auto) 3.2 % (0.0-7.0); Hematocrit 28.9 % (41.0-53.0); Hemoglobin 9.4 g/dL (13.5-17.5); Lymphocytes # (auto) 0.5 10 ^3/uL (0.4-5.4); Lymphocytes % (auto) 8.9 % (10.0-50.0); Mean Corpuscular Hemoglobin 27.2 pg (28.0-32.0); Mean Corpuscular Hgb Conc. 32.6 g/dL (32.0-36.0); Mean Corpuscular Volume 83.5 fL (80.0-100.0); Monocytes # (auto) 0.8 10 ^3/uL (0-1.3); Monocytes % (auto) 13.4 % (0.0-12.0); Neutrophils # (auto) 4.5 10 ^3/uL (1.6-8.6); Neutrophils % (auto) 73.6 % (37.0-80.0); Red Blood Cells 3.46 10^6/uL (4.5-5.90); Red Cell Distribution Width 15.3 % (11.8-14.3); White Blood Cell 6.1 10^3/uL (4.4-10.8)
[2021-07-24 06:52] LABS: BUN/Creatinine Ratio 17.9; Bilirubin, Total 0.4 mg/dL (0.2-1.0)
[2021-07-24 06:58] LABS: INR 1.18 (0.9-1.15)
[2021-07-24 09:00] VITALS: BP 146/56
[2021-07-24] MEDS: PANTOPRAZOLE 40 MG TAB PO SCH (10:05)
[2021-07-24] MEDS: DIGOXIN 0.125 MG TAB PO SCH (10:07)
[2021-07-24] MEDS: amLODIPine BESYLATE 5 MG TAB PO SCH (10:07)
[2021-07-24] MEDS: APIXABAN 2.5 MG TAB PO SCH ×2 (10:07→22:00)
[2021-07-24 13:00] VITALS: BP 128/74
[2021-07-24 17:00] VITALS: BP 156/75
[2021-07-24] MEDS: CYANOCOBALAMIN (B-12) 1000 MCG/1 ML VIAL IM SCH (18:43)
[2021-07-24 22:00] VITALS: BP 147/74
[2021-07-25] MEDS: PIPERACILLIN-TAZOB 2.25GM 50 ML IV SCH ×2 (00:59→13:09)
[2021-07-25] MEDS: CLINDAMYCIN 300MG IV 50 ML IV SCH ×2 (02:56→16:28)
[2021-07-25 05:00] VITALS: BP 155/77
[2021-07-25] MEDS: hydrALAZINE HCL 25 MG TAB PO PRN (05:00)
[2021-07-25] MEDS: ALBUTEROL SULF 2.5 MG/0.5ML(0.5%) NEB SOLN NEB SCH ×6 (06:00→21:57)
[2021-07-25 09:00] VITALS: BP 161/63
[2021-07-25] MEDS: APIXABAN 2.5 MG TAB PO SCH ×2 (10:05→21:47)
[2021-07-25] MEDS: PANTOPRAZOLE 40 MG TAB PO SCH (10:05)
[2021-07-25] MEDS: amLODIPine BESYLATE 5 MG TAB PO SCH (10:05)
[2021-07-25 13:00] VITALS: BP 156/75
[2021-07-25] MEDS: CYANOCOBALAMIN (B-12) 1000 MCG/1 ML VIAL IM SCH (16:29)
[2021-07-25 17:00] VITALS: BP 160/75
[2021-07-25 22:00] VITALS: BP 150/72
[2021-07-26] MEDS: PIPERACILLIN-TAZOB 2.25GM 50 ML IV SCH ×2 (00:58→13:50)
[2021-07-26] MEDS: CLINDAMYCIN 300MG IV 50 ML IV SCH ×2 (03:30→15:23)
[2021-07-26 05:00] VITALS: BP 162/68
[2021-07-26 05:39] LABS: Basophils # (auto) 0.1 10 ^3/uL (0-0.2); Basophils % (auto) 0.6 % (0.0-2.0); Eosinophils # (auto) 0.1 10 ^3/uL (0-0.8); Eosinophils % (auto) 1.6 % (0.0-7.0); Hematocrit 28.7 % (41.0-53.0); Hemoglobin 9.4 g/dL (13.5-17.5); Lymphocytes # (auto) 0.5 10 ^3/uL (0.4-5.4); Mean Corpuscular Hemoglobin 27.4 pg (28.0-32.0); Mean Corpuscular Hgb Conc. 32.9 g/dL (32.0-36.0); Mean Corpuscular Volume 83.3 fL (80.0-100.0); Monocytes # (auto) 0.7 10 ^3/uL (0-1.3); Neutrophils # (auto) 6.8 10 ^3/uL (1.6-8.6); Neutrophils % (auto) 83.8 % (37.0-80.0); Red Blood Cells 3.44 10^6/uL (4.5-5.90); Red Cell Distribution Width 15.2 % (11.8-14.3); White Blood Cell 8.1 10^3/uL (4.4-10.8)
[2021-07-26] MEDS: hydrALAZINE HCL 25 MG TAB PO PRN ×2 (05:45→15:45)
[2021-07-26 05:57] LABS: Potassium 4.4 mmol/L (3.5-5.1)
[2021-07-26 06:06] LABS: Albumin 2.2 g/dL (3.4-5.0); BUN/Creatinine Ratio 16.2; Bilirubin, Total 0.4 mg/dL (0.2-1.0); Total Protein 6.1 g/dL (6.4-8.2)
[2021-07-26] MEDS: ALBUTEROL SULF 2.5 MG/0.5ML(0.5%) NEB SOLN NEB SCH ×5 (06:08→22:06)
[2021-07-26 08:00] VITALS: BP 157/62
[2021-07-26 09:00] VITALS: BP 157/62
[2021-07-26] MEDS: PANTOPRAZOLE 40 MG TAB PO SCH (10:47)
[2021-07-26] MEDS: APIXABAN 2.5 MG TAB PO SCH ×2 (10:47→22:29)
[2021-07-26] MEDS: amLODIPine BESYLATE 5 MG TAB PO SCH (10:47)
[2021-07-26 13:00] VITALS: BP 160/58
[2021-07-26 16:26] VITALS: BP 166/63
[2021-07-26] MEDS ORDERED: FUROSEMIDE 40 MG/4 ML VIAL IV ONE (17:45)
[2021-07-26] MEDS: CYANOCOBALAMIN (B-12) 1000 MCG/1 ML VIAL IM SCH (18:38)
[2021-07-26 22:00] VITALS: BP 146/48
[2021-07-27] VITALS (7 sets, daily range): BP systolic 116–166; BP diastolic 63–85
[2021-07-27] MEDS: PIPERACILLIN-TAZOB 2.25GM 50 ML IV SCH ×2 (00:08→13:00)
[2021-07-27] MEDS: ALBUTEROL SULF 2.5 MG/0.5ML(0.5%) NEB SOLN NEB SCH ×5 (06:49→22:36)
[2021-07-27] MEDS: APIXABAN 2.5 MG TAB PO SCH ×2 (10:00→21:07)
[2021-07-27] MEDS: PANTOPRAZOLE 40 MG TAB PO SCH (10:48)
[2021-07-27] MEDS: amLODIPine BESYLATE 5 MG TAB PO SCH (10:48)
[2021-07-27] MEDS: SODIUM BICARBONATE 650 MG TAB PO SCH ×2 (15:54→21:07)
[2021-07-27] MEDS ORDERED: TAMSULOSIN HYDROCHLORIDE 0.4 MG CAP PO ONE (20:45)
[2021-07-27] MEDS ORDERED: FINASTERIDE 5 MG TAB PO SCH (21:00)
[2021-07-28] MEDS: PIPERACILLIN-TAZOB 2.25GM 50 ML IV SCH ×2 (01:49→13:00)
[2021-07-28 05:00] VITALS: BP 155/71
[2021-07-28] MEDS: ALBUTEROL SULF 2.5 MG/0.5ML(0.5%) NEB SOLN NEB SCH ×3 (06:31→14:02)
[2021-07-28] MEDS: SODIUM BICARBONATE 650 MG TAB PO SCH ×2 (06:35→14:00)
[2021-07-28] MEDS ORDERED: FIN5T PO (07:27)
[2021-07-28] MEDS ORDERED: SODI650T PO (07:27)
[2021-07-28 09:21] VITALS: BP 151/55
[2021-07-28 09:26] LABS: BUN/Creatinine Ratio 14.5; Calcium 8.3 mg/dL (8.5-10.1); Potassium 4.3 mmol/L (3.5-5.1)
[2021-07-28] MEDS: APIXABAN 2.5 MG TAB PO SCH (10:10)
[2021-07-28] MEDS: PANTOPRAZOLE 40 MG TAB PO SCH (10:11)
[2021-07-28] MEDS: amLODIPine BESYLATE 5 MG TAB PO SCH (10:11)
[2021-07-28 13:00] VITALS: BP 152/67
[2021-07-28] MEDS: hydrALAZINE HCL 25 MG TAB PO PRN (13:00)
[2021-07-28 16:48] VITALS: BP 147/81
[2021-07-28 17:31] VITALS: BP 146/82
[2021-07-28] MEDS ORDERED: TAMSULOSIN HYDROCHLORIDE 0.4 MG CAP PO SCH (18:00)
== END 2021-07-28 18:20 | disposition hospice, home (50) | DRG 871 ==
LOC: ER 17:19 → EDBD 17:19 → EDUNIT# 17:19 → TELE 23:42 → TELE-CENTR 07-19 20:37
PROVIDERS: ADMIT Specialist; ATTEND Specialist
PROC: 0W993ZZ Drainage of Right Pleural Cavity, Percutaneous Approach (ICD-10-PCS; principal; 2021-07-27)
DX: A41.9 Sepsis, unspecified organism (principal); J69.0 Pneumonitis due to inhalation of food and vomit; I50.43 Acute on chronic combined systolic (congestive) and diastolic (congestive) heart failure; G92.8 Other toxic encephalopathy; N17.9 Acute kidney failure, unspecified; I31.3 Pericardial effusion (noninflammatory); C34.90 Malignant neoplasm of unspecified part of unspecified bronchus or lung; I47.1 Supraventricular tachycardia; J44.0 Chronic obstructive pulmonary disease with (acute) lower respiratory infection; J91.8 Pleural effusion in other conditions classified elsewhere; I42.9 Cardiomyopathy, unspecified; I13.0 Hypertensive heart and chronic kidney disease with heart failure and stage 1 through stage 4 chronic kidney disease, or unspecified chronic kidney disease; N18.4 Chronic kidney disease, stage 4 (severe); Z20.822 Contact with and (suspected) exposure to COVID-19; E86.9 Volume depletion, unspecified; I25.10 Atherosclerotic heart disease of native coronary artery without angina pectoris; K59.00 Constipation, unspecified; D51.9 Vitamin B12 deficiency anemia, unspecified; E78.5 Hyperlipidemia, unspecified; F01.50 Vascular dementia, unspecified severity, without behavioral disturbance, psychotic disturbance, mood disturbance, and anxiety; I48.91 Unspecified atrial fibrillation; R79.89 Other specified abnormal findings of blood chemistry; I27.81 Cor pulmonale (chronic); G89.29 Other chronic pain; R54 Age-related physical debility; F43.10 Post-traumatic stress disorder, unspecified; R09.02 Hypoxemia; Z51.5 Encounter for palliative care; Z79.01 Long term (current) use of anticoagulants; Z82.49 Family history of ischemic heart disease and other diseases of the circulatory system; Z85.118 Personal history of other malignant neoplasm of bronchus and lung; Z85.528 Personal history of other malignant neoplasm of kidney; Z79.899 Other long term (current) drug therapy; Z86.79 Personal history of other diseases of the circulatory system; Z91.012 Allergy to eggs
CPT/HCPCS: 36415; 70450; 71045; 74176; 76604; 76942; 80048; 80053; 81001; 82607; 82746; 83605; 83690; 83735; 83880; 84443; 84484; 85025; 85610; 86592; 87040; 87205; 87426; 89051; 93005; 93306; 94640; 95819; G0378; J2543; J3490